=== PATIENT | female | born 1960 | race Caucasian/White ===

== ENCOUNTER → 2017-01-09 | Outpatient (CLI) | payer BC ==
--- NOTE | 2017-01-09 17:14 | US ---
EXAMINATION TYPE: US transvaginal DATE OF EXAM: 01/09/2017 COMPARISON: NONE CLINICAL HISTORY: N93.9 Abnormal Vaginal Bleeding. TECHNIQUE: Transvaginal (TV) Date of LMP: 15 months ago EXAM MEASUREMENTS: Uterus: 9.3 x 4.0 x 5.4 cm Endometrial Stripe: 1.7 cm Right Ovary: 2.9 x 2.9 x 3.0 cm Left Ovary: not visualized 1. Uterus: retroflexed 2. Endometrium: thickened 3. Right Ovary: 2.1 x 1.7 x 2.3 cm cyst 4. Left Ovary: Obscured by overlying bowel gas 5. Bilateral Adnexa: wnl 6. Posterior cul-de-sac: no free fluid right ovarian cyst as described above, thickened, heterogeneous endometrium IMPRESSION: 1. Right ovarian cyst. Follow-up 6 weeks is recommended.
== END | disposition home or self-care (01) ==
LOC: RADUSMAIN 16:26
PROVIDERS: ATTEND Family Medicine
DX: N83.201 Unspecified ovarian cyst, right side (principal)
CPT/HCPCS: 76830

== ENCOUNTER 2017-01-14 15:55 | Emergency (ER) | payer BC ==
[2017-01-14] MEDS ORDERED: IBUPROFEN 600 MG TAB PO STA (16:36)
--- NOTE | 2017-01-14 16:38 | ED ---
Lower Extremity Injury HPI - General Chief Complaint: Extremity Injury, Lower Stated Complaint: rt leg injury Time Seen by Provider: 01/14/17 16:23 Source: patient, RN notes reviewed Mode of arrival: ambulatory Limitations: no limitations - History of Present Illness Initial Comments: 56 year old female presents emergency Department for right ankle injury. Patient states that she was put in a wheelchair up the wheelchair landing on the vehicle and states that her foot and ankle were caught. No complaints of pain and swelling along the lateral and medial malleolus. Patient denies any. Fractures. Patient states it hurts to ambulate. Patient states she has not put any ice on it or has not taken any medication for this. Patient denies any paresthesias. - Related Data Home Medications Medication Instructions Recorded Confirmed ALPRAZolam [Xanax] 1 mg PO TID PRN 03/24/14 01/14/17 Butalb/Acetaminophen/Caffeine 1 cap PO DAILY PRN 01/20/16 01/14/17 [Fioricet 50-300-40 mg Capsule] PARoxetine [Paxil] 20 mg PO DAILY 01/20/16 01/14/17 Topiramate [Topamax] 50 mg PO BID 01/14/17 01/14/17 Previous Rx's Medication Instructions Recorded Hydrocodone/Acetaminophen [[place] 1 tab PO Q6HR PRN #15 tab 01/14/17 5-325] Allergies Allergy/AdvReac Type Severity Reaction Status Date / Time No Known Allergies Allergy Verified 01/14/17 16:40 Review of Systems ROS Statement: Those systems with pertinent positive or pertinent negative responses have been documented in the HPI. ROS Other: All systems not noted in ROS Statement are negative. Past Medical History Past Medical History: No Reported History Additional Past Medical History / Comment(s): anxiety History of Any Multi-Drug Resistant Organisms: MRSA Date of last positivie culture/infection: 2011 MDRO Source:: right axilla, neck Past Surgical History: Section Past Psychological History: Anxiety Smoking Status: Current every day smoker Past Alcohol Use History: Rare Past Drug Use History: None Reported General Exam Limitations: no limitations General appearance: alert, in no apparent distress Head exam: Present: atraumatic, normocephalic, normal inspection Respiratory exam: Present: normal lung sounds bilaterally. Absent: respiratory distress, wheezes, rales, rhonchi, stridor Cardiovascular Exam: Present: regular rate, normal rhythm, normal heart sounds. Absent: systolic murmur, diastolic murmur, rubs, gallop, clicks Extremities exam: Present: other (Right ankle there is moderate swelling on the lateral and medial malleolus with mild tenderness no obvious deformity there is no foot tenderness no proximal tib-fib tenderness pedal pulses are equal bilaterally) Course Vital Signs 01/14/17 16:01 Temperature 97.5 F L Pulse Rate 66 Respiratory 15 Rate Blood Pressure 125/58 O2 Sat by Pulse 99 Oximetry Medical Decision Making - Medical Decision Making 56-year-old female presented for right ankle injury. There is no acute fracture per radiology reading on x-ray. Patient will be discharge rest ice elevating Niraj wrap at this time. Disposition Clinical Impression: Right ankle sprain Disposition: HOME SELF-CARE Condition: Stable Instructions: Ankle Sprain (ED) Additional Instructions: Please return to the Emergency Department if symptoms worsen or any other concerns. Prescriptions: Hydrocodone/Acetaminophen [[place] 5-325] 1 tab PO Q6HR PRN #15 tab PRN Reason: Pain Referrals: Chavo Fofana MD [Primary Care Provider] - 1-2 days Time of Disposition: 17:28
--- NOTE | 2017-01-14 17:19 | XR ---
EXAMINATION TYPE: XR ankle complete RT DATE OF EXAM: 01/14/2017 COMPARISON: NONE HISTORY: Ankle pain TECHNIQUE: 3 views FINDINGS: Ankle mortise is anatomic. I see no fracture nor dislocation. Joint spaces are normal. IMPRESSION: Negative right ankle exam
[2017-01-14] MEDS ORDERED: HYDROcodone/APAP 5-325MG 1 EACH TAB PO STA (17:27)
[2017-01-14 17:41] VITALS: BP 114/57; PULSE 60; RESP 18; TEMP 96.9
== END 2017-01-14 17:43 | disposition home or self-care (01) ==
LOC: EC 15:55
DX: S93.401A Sprain of unspecified ligament of right ankle, initial encounter (principal); F41.9 Anxiety disorder, unspecified; F17.200 Nicotine dependence, unspecified, uncomplicated; Z79.899 Other long term (current) drug therapy; W23.0XXA Caught, crushed, jammed, or pinched between moving objects, initial encounter
CPT/HCPCS: 99283

== ENCOUNTER 2017-05-22 19:12 | Emergency (ER) | payer BC ==
[2017-05-22 20:06] VITALS: BP 134/60; PULSE 71; RESP 18; TEMP 98.2
--- NOTE | 2017-05-22 20:32 | ED ---
ENT HPI - General Chief complaint: Dental/Oral Stated complaint: tooth abscess Time Seen by Provider: 05/22/17 20:08 Source: patient Mode of arrival: ambulatory Limitations: no limitations - History of Present Illness Initial comments: 56-year-old female patient presented to emergency department today for complaints of right lower dental pain and facial swelling. Patient states that she does have a broken tooth in the right lower side. States she's been having pain for the last week. States that she developed worsening pain on Saturday and did present to [facility] for evaluation. States that she was given pain medication as well as antibiotics there and discharged home. She states that she did call and make an appointment with the dentist but they wanted to complete antibiotics prior to this. She states that yesterday the pain seemed to be worsening and not improved so she did return to the emergency department there, she states that they told her she needs to continue taking her medications and to follow-up with a dentist. She comes in tonight because she developed swelling to the side of her face today. She states that the pain is not improving. She is concerned she might be getting worse. She denies any fever or chills. States that she just feels generally unwell. States that she doesn't think her antibiotic is strong enough. Patient denies any recent fever, chills, shortness breath, chest pain, abdominal pain, nausea, vomiting, diarrhea , constipation, back pain, numbness, tingling, headache, visual changes, hematuria, dysuria, urinary frequency, urinary urgency, or any other complaints. - Related Data Home Medications Medication Instructions Recorded Confirmed ALPRAZolam [Xanax] 1 mg PO TID PRN 03/24/14 05/22/17 PARoxetine [Paxil] 20 mg PO DAILY 01/20/16 05/22/17 Topiramate [Topamax] 50 mg PO QAM 01/14/17 05/22/17 HYDROcodone/APAP 7.5-325MG [[place] 1 tab PO Q6HR PRN 05/22/17 05/22/17 7.5-325] Ibuprofen [Motrin] 600 mg PO Q6HR PRN 05/22/17 05/22/17 Penicillin V Potassium [Pen Vee K] 500 mg PO QID 05/22/17 05/22/17 Previous Rx's Medication Instructions Recorded Clindamycin [Cleocin] 300 mg PO Q6H #80 capsule 05/22/17 Allergies Allergy/AdvReac Type Severity Reaction Status Date / Time No Known Allergies Allergy Verified 05/22/17 20:06 Review of Systems ROS Statement: Those systems with pertinent positive or pertinent negative responses have been documented in the HPI. ROS Other: All systems not noted in ROS Statement are negative. Past Medical History Past Medical History: No Reported History Additional Past Medical History / Comment(s): anxiety History of Any Multi-Drug Resistant Organisms: MRSA Date of last positivie culture/infection: 2011 MDRO Source:: right axilla, neck Past Surgical History: Section Past Psychological History: Anxiety Smoking Status: Current every day smoker Past Alcohol Use History: Rare Past Drug Use History: None Reported General Exam Limitations: no limitations General appearance: alert, in no apparent distress, other (Physical developed, well nourished adult female patient in no acute distress. Vital signs upon presentation her temperature 98.2F, pulse 71, respirations 18, blood pressure 134/60, pulse ox 99% on room air.) Eye exam: Present: normal appearance, PERRL, EOMI. Absent: scleral icterus, conjunctival injection, periorbital swelling ENT exam: Present: normal exam, mucous membranes moist, other (Patient has right -sided facial swelling over the right lower jaw. There is a broken tooth to the right lower dentition. There is surrounding gingival erythema, no area of drainable abscess. She is able to open and close her mouth.) Neck exam: Present: normal inspection. Absent: tenderness, meningismus, lymphadenopathy Respiratory exam: Present: normal lung sounds bilaterally. Absent: respiratory distress, wheezes, rales, rhonchi, stridor Cardiovascular Exam: Present: regular rate, normal rhythm, normal heart sounds. Absent: systolic murmur, diastolic murmur, rubs, gallop, clicks Neurological exam: Present: alert, oriented X3, CN II-XII intact Psychiatric exam: Present: normal affect, normal mood Skin exam: Present: warm, dry, intact, normal color. Absent: rash Course Vital Signs 05/22/17 20:01 Temperature 98.2 F Pulse Rate 71 Respiratory 18 Rate Blood Pressure 134/60 O2 Sat by Pulse 99 Oximetry Medical Decision Making - Medical Decision Making 56 old female patient presented for evaluation of right lower dental pain with facial swelling. Patient is concerned that her antibiotic is not strong enough. She has been taking penicillin for the last 2 days. States that the swelling is new today. There are no palpable cervical lymph nodes. Patient is afebrile, vital signs are stable. I change her antibiotic from penicillin to clindamycin. I did instruct her to finish the antibiotics in full and to follow -up with a dentist as soon as possible. I instructed her to apply warm compresses to the outside of the face. Return parameters discussed in detail. I instructed her to return here immediately for any new, worsening, or concerning symptoms. She verbalizes understanding and agreement with this plan. Disposition Clinical Impression: Dental abscess, Fractured tooth Disposition: HOME SELF-CARE Condition: Good Instructions: Dental Abscess (ED), Toothache (ED) Additional Instructions: Apply warm compresses to the outside of the face. Complete antibiotic prescription in full. Follow up with a dentist as soon as possible. Return here immediately for any new, worsening, or concerning symptoms. Prescriptions: Clindamycin [Cleocin] 300 mg PO Q6H #80 capsule Referrals: Chavo Fofana MD [Primary Care Provider] - 1-2 days Time of Disposition: 20:32
== END 2017-05-22 20:43 | disposition home or self-care (01) ==
LOC: EC 19:12
DX: S02.5XXA Fracture of tooth (traumatic), initial encounter for closed fracture (principal); K04.7 Periapical abscess without sinus; F41.9 Anxiety disorder, unspecified; F17.200 Nicotine dependence, unspecified, uncomplicated; Z79.899 Other long term (current) drug therapy; X58.XXXA Exposure to other specified factors, initial encounter
CPT/HCPCS: 99282

== ENCOUNTER → 2017-06-24 | Outpatient (CLI) | payer BC ==
--- NOTE | 2017-06-24 18:39 | US ---
EXAMINATION TYPE: US transvaginal DATE OF EXAM: 06/24/2017 COMPARISON: 01/09/2017 CLINICAL HISTORY: N65.0 Post Menopausal Bleeding. TECHNIQUE: Transvaginal (TV) Date of LMP: 01/2017 EXAM MEASUREMENTS: Uterus: 6.0 x 3.6 x 3.8 cm Endometrial Stripe: 0.57 cm Right Ovary: 2.1 x 1.4 x 1.8 cm Left Ovary: 2.4 x 1.3 x 1.7 cm 1. Uterus: Retroverted Heterogenous 2. Endometrium: visualized portion appears wnl 3. Right Ovary: wnl 4. Left Ovary: wnl 5. Bilateral Adnexa: wnl 6. Posterior cul-de-sac: wnl Exam limitations due to bowel gas and uterus position IMPRESSION: No adnexal mass or free fluid. No endometrial thickening seen. Endometrium is decreased i n thickness compared to last exam.
== END | disposition home or self-care (01) ==
LOC: RADUSMAIN 17:15
PROVIDERS: ATTEND Family Medicine
DX: R93.8 Abnormal findings on diagnostic imaging of other specified body structures (principal)
CPT/HCPCS: 76830

== ENCOUNTER → 2018-10-13 | Outpatient (CLI) | payer BC ==
--- NOTE | 2018-10-13 10:38 | US ---
EXAMINATION TYPE: US pelvic complete DATE OF EXAM: 10/13/2018 COMPARISON: 06/24/2017 CLINICAL HISTORY: Pelvic Pain R10.2. Pain- generalized cramping, hx TECHNIQUE: Transabdominal (TA). Transabdominal sonographic images of the pelvis were acquired Date of LMP: Postmenopausal, EXAM MEASUREMENTS: Uterus: 10.3 x 4.1 x 3.3 cm Endometrial Stripe: 0.5 cm Right Ovary: 2.1 x 1.6 x 1.1 cm Left Ovary: 2.7 x 1.7 x 1.3 cm 1. Uterus: Anteverted there is an elongated focal lobulation at the presumed area of sca r continuous with the soft tissues and extending to the anterior uterine fundus. 2. Endometrium: wnl 3. Right Ovary: wnl 4. Left Ovary: wnl 5. Bilateral Adnexa: wnl 6. Posterior cul-de-sac: no free fluid Cervix- nabothian cysts IMPRESSION: Elongated area of hypoechogenicity presumed to be at the anterior scar. This appears slight ly lobular on few marked images (such as 20/41). This appears much more pronounced than on the prior exam of 2017. If there is concern for endometrioma or desmoid tumor MR pelvis with contrast could be performed.
== END | disposition home or self-care (01) ==
LOC: RADUSWWP 09:44
PROVIDERS: ATTEND Obstetrics & Gynecology
DX: N85.8 Other specified noninflammatory disorders of uterus (principal)
CPT/HCPCS: 76856

== ENCOUNTER → 2018-10-15 | Outpatient (CLI) | payer BC ==
[2018-10-15 19:00] LABS: Basophils # (A) 0.1 k/uL (0-0.2); Basophils % (A) 1 %; Eosinophils # (A) 0.1 k/uL (0-0.7); Eosinophils % (A) 2 %; HCT 44.3 % (34.0-46.0); HGB 15.2 gm/dL (11.4-16.0); Lymphocytes # (A) 2.4 k/uL (1.0-4.8); Lymphocytes % (A) 36 %; MCH 31.4 pg (25.0-35.0); MCHC 34.4 g/dL (31.0-37.0); MCV 91.4 fL (80.0-100.0); Mean Platelet Volume 6.8; Monocytes # (A) 0.4 k/uL (0-1.0); Monocytes % (A) 5 %; Neutrophils # (A) 3.6 k/uL (1.3-7.7); Neutrophils % (A) 55 %; Platelet Count 243 k/uL (150-450); RBC 4.85 m/uL (3.80-5.40); RDW 12.9 % (11.5-15.5); WBC 6.6 k/uL (3.8-10.6)
== END | disposition home or self-care (01) ==
LOC: LABPAT 17:05
PROVIDERS: ATTEND Obstetrics & Gynecology
DX: Z01.818 Encounter for other preprocedural examination (principal); Z01.812 Encounter for preprocedural laboratory examination; E21.1 Secondary hyperparathyroidism, not elsewhere classified; D50.9 Iron deficiency anemia, unspecified; K90.9 Intestinal malabsorption, unspecified; E55.9 Vitamin D deficiency, unspecified; K74.1 Hepatic sclerosis; N19 Unspecified kidney failure; K50.90 Crohn's disease, unspecified, without complications
CPT/HCPCS: 85025; 93005

== ENCOUNTER 2018-10-20 08:20 | Day surgery (SDC) | payer BC ==
[2018-10-16 14:47] VITALS: BMI 25.4
[~2018-10-20 08:20] MED LIST: DEXAMETHASONE SOD PHOSPHATE 10 MG/ML 1 ML VIAL IV ONE; HYDROmorphone 0.5 MG/0.5 ML SYRINGE IVP PRN; LACTATED RINGERS 1,000 ML IV SCH; LIDOCAINE 1% 20 ML VIAL (10MG/ML) FOR IV START INTRADERMA PRN; SCOPOLAMINE 1.5MG/72HR PATCH TRANSDERM ONE; ceFAZolin IN SWFI 2 GM/20 ML SYRINGE IVP ONE
[2018-10-20] MEDS: ONDANSETRON 4 MG/2 ML VIAL IVP ONE ×2 (09:02→12:24)
[2018-10-20] MEDS ORDERED: GLYCOPYRROLATE 0.2 MG/ML 2 ML VIAL ONE (10:30)
[2018-10-20] MEDS ORDERED: fentaNYL (PF) 50 MCG/ML 2 ML AMP ONE (10:30)
[2018-10-20] MEDS ORDERED: PROPOFOL 10 MG/ML 20 ML VIAL IV ONE (10:30)
[2018-10-20] MEDS ORDERED: SUCCINYLCHOLINE CHLORIDE 100 MG/5 ML SYR IV ONE (10:30)
[2018-10-20] MEDS ORDERED: ROCURONIUM BROMIDE 10 MG/ML 10 ML VIAL IV ONE (10:30)
[2018-10-20] MEDS ORDERED: NEOSTIGMINE 1 MG/ML 10 ML VIAL ONE (10:30)
[2018-10-20] MEDS ORDERED: MIDAZOLAM 2 MG/2 ML VIAL ONE (10:30)
[2018-10-20] MEDS ORDERED: BUPIVACAINE (PF) 0.25% 30 ML VIAL SQ ONE (10:59)
[2018-10-20] MEDS ORDERED: METHYLENE BLUE 10 MG/ML (10 ML VIAL) MISCELLANE ONE (11:35)
[2018-10-20] MEDS ORDERED: LACTATED RINGERS 1,000 ML IV ONE ×3 (12:10→12:24)
--- NOTE | 2018-10-20 12:16 | P.OP ---
Date of Procedure: 10/20/18 Preoperative Diagnosis: Pelvic pain Postoperative Diagnosis: Pelvic pain, abdominal and pelvic adhesions Procedure(s) Performed: Diagnostic laparoscopy with lysis of pelvic adhesions Anesthesia: MOO Surgeon: Jewels Lawler Estimated Blood Loss (ml): 2 IV fluids (ml): 800 Urine output (ml): 150 Pathology: none sent Disposition: PACU Indications for Procedure: Acute onset of pelvic pain Operative Findings: Dense adhesions involving the anterior abdominal wall and anterior fundus of the uterus. Abdominal wall diastases. Normal-appearing bilateral fallopian tubes and ovaries. Description of Procedure: After the patient and her family were met in the preoperative holding area and all questions were answered, she was taken to the operating room where anesthetic was administered without incident. She was in positioned, prepped and draped in the dorsal lithotomy position. The bladder was drained for approximately 100 mL of clear urine. Speculum was placed in the vagina and the cervix was grasped anteriorly with a single-tooth tenaculum. [place] uterine manipulator was placed. Exam under anesthetic was undertaken prior to this and uterus felt firm and mobile. Attention was then turned to the abdomen. Gloves were changed. A 5 mm supraumbilical skin incision was made. The anterior abdominal wall was elevated and the Veress needle was inserted without difficulty. Saline drop test indicated intraperitoneal placement. Initial filling pressure with CO2 gas was 0 mm. The abdomen was then insufflated to a total filling pressure of 15 mm. Under direct visualization the 5 mm diagnostic scope was introduced using the blade less optical trocar. Intraperitoneal placement was confirmed. The patient was then placed in Trendelenburg. The above findings were noted. Decision was made to undergo lysis of adhesions. The robot was utilized. Under direct visualization 8 mm left and right abdominal quadrant ports were placed. The infraumbilical camera port was switched to 8 mm da Shyanne port and operative cannula. The robot was docked in the typical fashion. Monopolar randal were in arm 1 and bipolar cautery [place] graspers were in arm 2. The bladder was retrograde filled with 300 mL's of methylene dyed urine. Adhesions were fairly dense 1-2 cm thick involving the anterior fundus of the uterus to the anterior abdominal wall. Significant diastases was noted.. Meticulous dissection was then undertaken both sharply and with the electrocautery to separate the fundus of the uterus on the from these adhesions. At no point did it appear that the bladder was in ope rative field. Once dissection was undertaken and the uterus was freed from these adhesions the bladder flap was more easily visualized. There was no evidence of methylene blue in the field. At this point the bilateral fallopian tubes and ovaries were more easily visualized. Hemostasis was noted. Interceed was then introduced and placed over the anterior fundus of the uterus as an adhesion barrier. The abdomen was then desufflated and ports were removed. The bladder was drained for 300 mL of methylene dyed blue urine. Instrument was removed from the vagina. The abdominal ports were closed with 4-0 Vicryl suture and infused with quarter percent Marcaine. Dressings applied. The patient was awoken from anesthetic in the usual fashion and transported recovery area in good condition. All counts reported to me as correct by the operating room staff.
[2018-10-20 12:30] VITALS: TEMP 97.5
[2018-10-20] MEDS ORDERED: diphenhydrAMINE 50 MG/ML 1 ML VIAL IVP ONE (12:37)
[2018-10-20 12:39] VITALS: RESP 16
[2018-10-20 13:50] VITALS: BP 112/60; PULSE 61
== END 2018-10-20 15:01 | disposition home or self-care (01) ==
LOC: OR 08:20
PROVIDERS: ATTEND Obstetrics & Gynecology
DX: N73.6 Female pelvic peritoneal adhesions (postinfective) (principal); I10 Essential (primary) hypertension; F17.210 Nicotine dependence, cigarettes, uncomplicated; F41.9 Anxiety disorder, unspecified; F32.9 Major depressive disorder, single episode, unspecified; R01.1 Cardiac murmur, unspecified; Z79.899 Other long term (current) drug therapy
CPT/HCPCS: 58660; J2250; J1200; J1100; J2710; J2405; Q9968; J3010; J0330; J2704; J1170; J0690

== ENCOUNTER → 2018-11-19 | Outpatient (CLI) | payer BC ==
--- NOTE | 2018-11-19 14:34 | CT ---
EXAMINATION TYPE: CT abdomen pelvis w con DATE OF EXAM: 11/19/2018 HISTORY: Small bowel obstruction; RLQ pain CT DLP: 1068mGycm Automated Exposure Control for Dose Reduction was Utilized. CONTRAST: CT scan of the abdomen and pelvis is performed with IV Contrast, patient injected with 100 ml mL of I sovue 300. COMPARISON: None. FINDINGS: LUNG BASES: Small to tiny pericardial effusion is seen. LIVER/GB: No significant abnormality is appreciated. PANCREAS: No significant abnormality is seen. SPLEEN: No significant abnormality is seen. ADRENALS: No significant abnormality is seen. KIDNEYS: Symmetric cortical medullary uptake and excretion without hydronephrosis bilaterally. BOWEL: Oral contrast reaches sigmoid colon. No suspicious small or large bowel dilatation. Mild promi nence of small bowel loops in the left upper to midabdomen, nonspecific. Stomach is not suspiciously dilated or prominent. Normal contrast-filled appendix from cecum into the right pelvis is noted. UTERUS/ADNEXA: Anteverted uterus. LYMPH NODES: No greater than 1cm abdominal or pelvic lymph nodes are appreciated. OSSEOUS STRUCTURES: Facet arthropathy lower lumbar spine slight grade 1 retrolisthesis L2 on L3 with mild to moderate disc space narrowing and anterior spurring. Moderate axial joint space loss in both hips. OTHER: Tiny fat-containing umbilical hernia is present axial image 45. Mild/moderate calcified plaque of aorta extends into branch vessels. IMPRESSION: No bowel obstruction. No CT evidence of acute appendicitis.
== END ==
LOC: RADCTMAIN 07:55
PROVIDERS: ATTEND Surgery Plastic and Reconstructive Surgery
DX: K56.609 Unspecified intestinal obstruction, unspecified as to partial versus complete obstruction (principal)
CPT/HCPCS: 74177; Q9967

== ENCOUNTER 2018-12-04 07:36 | Day surgery (SDC) | payer BC ==
[2018-12-03 10:09] VITALS: BMI 25.1
--- NOTE | 2018-12-03 18:35 | P.GSHP ---
History of Present Illness H&P Date: 12/04/18 CHIEF COMPLAINT: Inguinal hernia, right. HISTORY OF PRESENT ILLNESS: The patient is a 58-year-old female who presents with a history of swelling and pain along the right groin. She's noted increased swelling including pain of the area. Now she presents for repair of her inguinal hernia. PAST MEDICAL HISTORY: Please see list. PAST SURGICAL HISTORY: Please see list. MEDICATIONS: Please see list. ALLERGIES: Please see list. SOCIAL HISTORY: No illicit drug use FAMILY HISTORY: No reports of Crohn disease or ulcerative colitis. REVIEW OF ORGAN SYSTEMS: CONSTITUTIONAL: No reports of fevers or chills. No reports of weight loss despite prior attempts. GI: Denies any blood in stools or constipation. PHYSICAL EXAM: VITAL SIGNS: Stable GENERAL: Well-developed pleasant female in no acute distress. HEENT: No scleral icterus. Extraocular movements grossly intact. Moist buccal mucosa. NECK: Supple without lymphadenopathy. CHEST: Unlabored respirations. Equal bilateral excursions. CARDIOVASCULAR: Regular rate and rhythm. Distal 2+ pulses. ABDOMEN: Soft, nondistended. No peritoneal signs. Moderate tenderness right lower quadrant MUSCULOSKELETAL: No clubbing, cyanosis, or edema. ASSESSMENT: 1. Inguinal hernia, right initial and symptomatic. PLAN: 1. Recommend proceeding robotic inguinal repair with mesh with possible bilateral approach. 2. Benefits and risks of surgical intervention was discussed including possibility of open technique. 3. DVT prophylaxis. 4. Antibiotic prophylaxis. Past Medical History Past Medical History: Pneumonia Additional Past Medical History / Comment(s): migraine headaches, right lower abd. pain, states has never had hypertension, recent flu & pneumonia 3 weeks ago-now resolved History of Any Multi-Drug Resistant Organisms: MRSA Date of last positivie culture/infection: 2011 MDRO Source:: right axilla, neck Past Surgical History: Section Additional Past Surgical History / Comment(s): laparoscopy w/lysis of adhesions 10-20-18 Past Anesthesia/Blood Transfusion Reactions: No Reported Reaction Additional Past Anesthesia/Blood Transfusion Reaction / Comment(s): NO GENERAL ANESTHESIA Smoking Status: Current every day smoker - Past Family History Father Family Medical History: Cancer Additional Family Medical History / Comment(s): LUNG AND LIVER Medications and Allergies Home Medications Medication Instructions Recorded Confirmed Type ALPRAZolam [Xanax] 1 mg PO TID PRN 03/24/14 12/03/18 History Butalb/Acetaminophen/Caffeine 1 - 2 cap PO Q4HR PRN 10/16/18 12/03/18 History [Fioricet 50-300-40 mg Capsule] PARoxetine HCL [Paxil] 40 mg PO DAILY 10/16/18 12/03/18 History buPROPion XL [Wellbutrin Xl] 150 mg PO DAILY 10/16/18 12/03/18 History Ibuprofen [Motrin] 600 mg PO Q6HR PRN #30 tab 10/20/18 12/03/18 Rx busPIRone HCl [Buspar] 10 mg PO DAILY 10/20/18 12/03/18 History Allergies Allergy/AdvReac Type Severity Reaction Status Date / Time No Known Allergies Allergy Verified 12/03/18 10:15
[~2018-12-04 07:36] MED LIST changes: +HEPARIN SODIUM,PORCINE 5,000 UNIT/ML 1 ML VIAL SQ ONE; -HYDROmorphone 0.5 MG/0.5 ML SYRINGE IVP PRN; +MIDAZOLAM (PF) 2 MG/2 ML VIAL IV PRN
[2018-12-04] MEDS: ONDANSETRON 4 MG/2 ML VIAL IVP ONE ×2 (08:00→10:13)
[2018-12-04] MEDS ORDERED: BUPIVACAINE (PF) 0.5% 30 ML VIAL ONE (08:17)
[2018-12-04] MEDS ORDERED: fentaNYL (PF) 50 MCG/ML 2 ML AMP ONE (08:17)
[2018-12-04] MEDS ORDERED: ROPIVACAINE 5 MG/ML 30 ML VIAL ONE (08:17)
[2018-12-04] MEDS ORDERED: KETOROLAC 30 MG/ML 1 ML VIAL ONE (08:17)
[2018-12-04] MEDS ORDERED: ROCURONIUM BROMIDE 10 MG/ML 10 ML VIAL IV ONE (08:17)
[2018-12-04] MEDS ORDERED: LIDOCAINE 2%-EPI 1:100,000 20 ML VIAL ONE (08:17)
[2018-12-04] MEDS ORDERED: MIDAZOLAM 2 MG/2 ML VIAL ONE (08:17)
[2018-12-04] MEDS ORDERED: DEXAMETHASONE SOD PHOSPHATE 4 MG/ML 1 ML VIAL ONE (08:17)
[2018-12-04] MEDS ORDERED: NEOSTIGMINE 1 MG/ML 10 ML VIAL ONE (08:17)
[2018-12-04] MEDS ORDERED: SUCCINYLCHOLINE CHLORIDE 100 MG/5 ML SYR IV ONE (08:17)
[2018-12-04] MEDS ORDERED: PROPOFOL 10 MG/ML 20 ML VIAL IV ONE (08:17)
[2018-12-04] MEDS ORDERED: GLYCOPYRROLATE 0.2 MG/ML 2 ML VIAL ONE (08:17)
[2018-12-04] MEDS ORDERED: LIDOCAINE 1% INJ 10MG/ML (20 ML MDV) ONE (08:17)
[2018-12-04 08:23] LABS: Basophils # (A) 0.1 k/uL (0-0.2); Basophils % (A) 1 %; Eosinophils # (A) 0.1 k/uL (0-0.7); Eosinophils % (A) 3 %; HCT 41.8 % (34.0-46.0); HGB 14.4 gm/dL (11.4-16.0); Lymphocytes % (A) 24 %; MCH 31.3 pg (25.0-35.0); MCHC 34.5 g/dL (31.0-37.0); MCV 90.8 fL (80.0-100.0); Mean Platelet Volume 6.5; Monocytes # (A) 0.3 k/uL (0-1.0); Monocytes % (A) 6 %; Neutrophils # (A) 2.6 k/uL (1.3-7.7); Neutrophils % (A) 64 %; Platelet Count 267 k/uL (150-450); RDW 13.3 % (11.5-15.5)
[2018-12-04] MEDS ORDERED: BUPIVACAINE (PF) 0.5% 30 ML VIAL SQ ONE ×2 (08:43→08:46)
[2018-12-04 10:05] VITALS: TEMP 97.3
--- NOTE | 2018-12-04 10:22 | P.OP ---
Date of Procedure: 12/04/18 Description of Procedure: SURGEON: ILANA JIANG MD PREOPERATIVE DIAGNOSES: 1. Bilateral lower abdominal pain, right greater than left 2. History of peritoneal adhesions 3. Generalized anxiety disorder 4. Depressive disorder 5. Migraine headaches 6. Tobacco use 7. Previous history of MRSA infection 8. Previous history of POSTOPERATIVE DIAGNOSES: 1. Bilateral lower abdominal pain, right greater than left 2. History of peritoneal adhesions 3. Generalized anxiety disorder 4. Depressive disorder 5. Migraine headaches 6. Tobacco use 7. Previous history of MRSA infection 8. Previous history of 9. Severe lower abdominal adhesions 10. Incisional hernia, initial, right lower abdomen OPERATION: 1. Robotic-assisted daVinci Xi laparoscopic repair of initial reducible incisional ventral hernia 5 x 5 cm with fascial imbrication without mesh 2. Robotic-assisted daVinci Xi laparoscopic lysis of adhesions over 30 minutes ANESTHESIA: General with local, abdominal wall block ESTIMATED BLOOD LOSS: 10 mL. SPECIMENS: None. COMPLICATIONS: None. Operative Findings: 1. Severe omentum to abdominal wall adhesions lower pelvis consistent with location of pain 2. Uterus adherent to the dome of bladder from previous and undisturbed 3. Abdominal wall defect right lower abdomen from prior consistent with incisional hernia repaired 4. Mesh placement avoided secondary to history of peritoneal adhesions including MRSA and chronic pain from adhesions INDICATIONS: The patient is a 58-year-old female who presents with moderate to severe bilateral lower abdominal pain right greater than left. She reports recent surgical exploration however her pain was still present and grew worse. Additional diagnosis studies were performed with evidence of possible hernia. Surgical intervention with laparoscopic versus robotic and open techniques were reviewed. Placement of mesh was also reviewed. Benefits and risks were thoroughly described. Informed consent was obtained. DESCRIPTION OF PROCEDURE: In the preoperative area, location of pain was marked with indelible marker. The patient was brought into the operating room and laid in supine position. After general induction, the abdomen had been prepped and draped in standard sterile fashion. Ioban draping was also placed. Prior to incision, a timeout protocol was confirmed with surgical team regarding the patient's name including procedures to be performed. The robot was primed prior to the procedure. A field block using local anesthesia was placed along hernia site including the proposed port sites. Initial incision was made with an #11 blade along the left upper quadrant. A 0 degree 5 mm laparoscopic trocar entry was performed. Diagnostic laparoscopy demonstrated severe peritoneal adhesions along the pelvis and lower midline consistent with her for pain as previously marked. Adhesions were from the greater omentum to the abdominal wall without involvement of the small bowel. No evidence of bowel obstruction identified. A 8 mm trocar was placed along the epigastrium and right upper quadrant. The 5-mm port was exchanged for an 8 mm robotic port. Placements of the ports were 20 cm from the target anatomy and 10 cm apart. The da Shyanne XI robot was previously primed, prepped and draped then docked along the left side of the patient. I then sat at the robot Da Shyanne XI console where working arms of the robot including Bovie cautery connected to robotic scissors, vessel sealer and graspers placed by the insurance assistant. Adhesions along the lower midline and pelvis were addressed with scissors and vessel sealer over 30 minutes. upon careful inspection of both groins, no inguinal hernia defects were found. The anterior surface of the uterus was completely adhered to the dome and bladder wall and undisturbed. Formal exploration of the pouch of [place] including fallopian tubes and ovaries were performed without evidence of endometriosis. No large ovarian cysts were identified bilaterally. The fallopian tubes were unremarkable as well. No evidence of exophytic fibroids were found. A Farah catheter was placed to confirm positioning of the bladder which was adhered to the uterus. The hernia along the right lower quadrant from previous was explored consistent with a pocket highly suspicious for intermittent bowel obstruction. Next, hemostasis was checked with cautery. The hernia defect was oversewn using #1 StrataFix with fascial imbrication 3. Mesh placement was avoided given the severe peritoneal adhesions and foreign body reaction to the mesh. A final endoscopic imaging was obtained. All instruments and pneumoperitoneum were evacuated from the abdominal cavity. The da Shyanne XI robot was undocked from the patient. I re-scrubbed into the case for closure of incisions. The incisions were reapproximated using 4-0 Monocryl in an interrupted subcuticular fashion. Liquid glue was applied to the skin. At the end of the procedure, needle, sponge, and instrument count had been verified correct by neurosurgical nurse practitioner. The patient was taken to the postanesthesia care unit in stable condition with abdominal binder. Plan - Discharge Summary Discharge Rx Participant: Yes New Discharge Prescriptions: New HYDROcodone/APAP 5-325MG [[place] 5-325] 1 tab PO Q6HR PRN 3 Days #10 tab PRN Reason: Pain No Action ALPRAZolam [Xanax] 1 mg PO TID PRN PRN Reason: Anxiety buPROPion XL [Wellbutrin Xl] 150 mg PO DAILY PARoxetine HCL [Paxil] 40 mg PO DAILY Butalb/Acetaminophen/Caffeine [Fioricet 50-300-40 mg Capsule] 1 - 2 cap PO Q4HR PRN PRN Reason: Migraine Headache busPIRone HCl [Buspar] 10 mg PO DAILY Ibuprofen [Motrin] 600 mg PO Q6HR PRN #30 tab PRN Reason: Pain Discharge Medication List ALPRAZolam [Xanax] 1 mg PO TID PRN 03/24/14 [History] Butalb/Acetaminophen/Caffeine [Fioricet 50-300-40 mg Capsule] 1 - 2 cap PO Q4HR PRN 10/16/18 [History] PARoxetine HCL [Paxil] 40 mg PO DAILY 10/16/18 [History] buPROPion XL [Wellbutrin Xl] 150 mg PO DAILY 10/16/18 [History] Ibuprofen [Motrin] 600 mg PO Q6HR PRN #30 tab 10/20/18 [Rx] busPIRone HCl [Buspar] 10 mg PO DAILY 10/20/18 [History] HYDROcodone/APAP 5-325MG [[place] 5-325] 1 tab PO Q6HR PRN 3 Days #10 tab 12/04/18 [Rx] Follow up Appointment(s)/Referral(s): Ilana Jiang MD [STAFF PHYSICIAN] - 12/09/18 Patient Instructions/Handouts: *Surgery [facility] - (Anesthesia) Discharge Instructions Outpatient Surgery, Hydrocodone/Acetaminophen (By mouth), Lysis of Abdominal Adhesions (DC), Abdominal Binder (DC), Ventral Hernia Repair (DC) Activity/Diet/Wound Care/Special Instructions: No lifting for 4 pounds in 4 weeks. May shower. No bathtub soaks for 2 weeks. Wear abdominal binder daily for comfort except for showering. DO NOT TAKE NORCO AND XANAX TOGETHER. DO NOT DRIVE WHILE ON NARCOTICS. Discharge Disposition: HOME SELF-CARE
[2018-12-04] MEDS: HYDROmorphone 0.5 MG/0.5 ML SYRINGE IVP PRN ×2 (10:26→10:33)
[2018-12-04 10:53] VITALS: RESP 18
--- NOTE | 2018-12-04 11:19 | P.ONQ ---
Anesthesiology Proc Note - PNB - Peripheral Nerve Block Performed Bilateral Transversus Abdominis Single Time Out Performed: Yes Indication: Acute Post-Operative Pain, Dx/Pain Location (abdominal pain), Requested by physician Sedation Type: Sedate with meaningful contact maintained Preparation: Sterile Prep Position: Supine Catheter: None Needle Types: On-Q Needle Size: 100mm (4") Needle Gauge: 21 Technique: Ultrasound Injectate: Other (see comment) (10ml 0.25% ropivacaine with 10ml 2% lidocaine with 1:200,000 epi and 4mg dexamethasone at each side) Blood Aspirated: No Pain Paresthesia on Injection Noted: No Resistance on Injection: Normal Events: Uneventful and Well Tolerated
[2018-12-04 11:25] VITALS: BP 145/80; PULSE 61
== END 2018-12-04 11:46 | disposition home or self-care (01) ==
LOC: OR 07:36
PROVIDERS: ATTEND Surgery Plastic and Reconstructive Surgery
DX: K43.2 Incisional hernia without obstruction or gangrene (principal); K66.0 Peritoneal adhesions (postprocedural) (postinfection); F41.1 Generalized anxiety disorder; F32.9 Major depressive disorder, single episode, unspecified; G43.909 Migraine, unspecified, not intractable, without status migrainosus; F17.210 Nicotine dependence, cigarettes, uncomplicated; Z86.14 Personal history of Methicillin resistant Staphylococcus aureus infection; Z80.1 Family history of malignant neoplasm of trachea, bronchus and lung; Z80.0 Family history of malignant neoplasm of digestive organs; Z79.899 Other long term (current) drug therapy
CPT/HCPCS: 49329; 49654; S2900; 64488; 85025

== ENCOUNTER 2019-01-25 13:49 | Emergency (ER) | payer BC ==
[2019-01-25] MEDS ORDERED: PANTOPRAZOLE 40 MG/10 ML VIAL IVP STA (14:26)
[2019-01-25] MEDS ORDERED: SODIUM CHLORIDE 0.9% 1,000 ML IV STA ×2 (14:26)
[2019-01-25] MEDS ORDERED: ONDANSETRON 4 MG/2 ML VIAL IVP STA (14:26)
[2019-01-25] MEDS ORDERED: MORPHINE SULFATE 4 MG/ML SYRINGE IV STA (14:26)
[2019-01-25] MEDS ORDERED: KETOROLAC 30 MG/ML 1 ML VIAL IVP STA (14:26)
--- NOTE | 2019-01-25 14:30 | ED ---
Nausea/Vomiting/Diarrhea HPI - General Chief complaint: Nausea/Vomiting/Diarrhea Stated complaint: Diarrhea Time Seen by Provider: 01/25/19 14:02 Source: patient, RN notes reviewed, old records reviewed Mode of arrival: ambulatory Limitations: no limitations - History of Present Illness Initial comments: Patient is a 50-year-old female who presents for shortness today with fever, and diarrhea for the past 3 days. Surgical history includes hernia repair, lysis of adhesions apparently 6 weeks ago. She reports that she's been having some chronic pelvic pain for the past few months, and had the hernia repair and lysis of adhesions to help repair the pain but still continues. Patient states that she had no bloody stools. She denies any vomiting. She states that she did have some episodes of dry heaves complains of nausea. Patient states that she had a fever 101 starting on Saturday. She denies any history of sick contacts or exposures to undercooked foods. - Related Data Home Medications Medication Instructions Recorded Confirmed ALPRAZolam [Xanax] 1 mg PO TID PRN 03/24/14 01/23/19 Butalb/Acetaminophen/Caffeine 1 - 2 cap PO Q4HR PRN 10/16/18 01/23/19 [Fioricet 50-300-40 mg Capsule] PARoxetine HCL [Paxil] 40 mg PO DAILY 10/16/18 01/23/19 buPROPion XL [Wellbutrin Xl] 150 mg PO DAILY 10/16/18 01/23/19 busPIRone HCl [Buspar] 10 mg PO DAILY 10/20/18 01/23/19 Previous Rx's Medication Instructions Recorded Loperamide [Imodium] 2 mg PO QID #15 capsule 01/25/19 Ondansetron [Zofran ODT] 4 mg PO Q8HR #8 tab 01/25/19 Allergies Allergy/AdvReac Type Severity Reaction Status Date / Time No Known Allergies Allergy Verified 01/23/19 15:07 Review of Systems ROS Statement: Those systems with pertinent positive or pertinent negative responses have been documented in the HPI. ROS Other: All systems not noted in ROS Statement are negative. Past Medical History Past Medical History: Pneumonia Additional Past Medical History / Comment(s): migraine headaches, hx. heart murmur History of Any Multi-Drug Resistant Organisms: MRSA Date of last positivie culture/infection: 2011 MDRO Source:: right axilla, neck Past Surgical History: Section Additional Past Surgical History / Comment(s): laparoscopy w/lysis of adhesions in October, had robotic ventral hernia repair & lysis of adhesions in November Past Anesthesia/Blood Transfusion Reactions: No Reported Reaction Additional Past Anesthesia/Blood Transfusion Reaction / Comment(s): NO GENERAL ANESTHESIA Past Psychological History: Anxiety Smoking Status: Current every day smoker Past Alcohol Use History: None Reported Past Drug Use History: None Reported - Past Family History Father Family Medical History: Cancer Additional Family Medical History / Comment(s): LUNG AND LIVER General Exam - General Exam Comments Initial Comments: This is an alert and oriented 58-year-old female. No significant distress. Limitations: no limitations General appearance: alert, in no apparent distress Head exam: Present: atraumatic, normocephalic, normal inspection Eye exam: Present: normal appearance, PERRL, EOMI. Absent: scleral icterus, conjunctival injection, periorbital swelling ENT exam: Present: normal exam, mucous membranes moist Neck exam: Present: normal inspection. Absent: tenderness, meningismus, lymphadenopathy Respiratory exam: Present: normal lung sounds bilaterally. Absent: respiratory distress, wheezes, rales, rhonchi, stridor Cardiovascular Exam: Present: regular rate, normal rhythm, normal heart sounds. Absent: systolic murmur, diastolic murmur, rubs, gallop, clicks GI/Abdominal exam: Present: soft, tenderness (RLQ tenderness), normal bowel sounds. Absent: distended, guarding, rebound, rigid Extremities exam: Present: normal inspection, full ROM, normal capillary refill. Absent: tenderness, pedal edema, joint swelling, calf tenderness Back exam: Present: normal inspection Neurological exam: Present: alert, oriented X3, CN II-XII intact Psychiatric exam: Present: normal affect, normal mood Course Vital Signs 01/25/19 01/25/19 13:54 15:25 Temperature 98.2 F Pulse Rate 70 66 Respiratory 18 18 Rate Blood Pressure 115/68 146/75 O2 Sat by Pulse 98 99 Oximetry Medical Decision Making - Medical Decision Making Patient is a 50-year-old female presents returns today with nausea, no OF diarrhea for the past 3 days. History of hernia repair [address] Evangelista. At this time Patient has some right lower quadrant tenderness. Patient states that she did have a fever earlier this week in the past few days. This time patient's blood work was reviewed and unremarkable. Patient's CT abdomen and pelvis was completed. The state for any acute process. No sign of appendicitis or diverticulitis. Patient really results. Discussed likely viral. Patient will be given a order for stool studies that she's not had a bowel movement while in emergency department. Discussed that she should return to the emergency department if any alarming signs or symptoms occur. - Lab Data Result diagrams: 01/25/19 14:44 01/25/19 14:44 Lab Results 01/25/19 01/25/19 01/25/19 Range/Units 14:44 14:44 14:44 WBC 3.2 L (3.8-10.6) k/uL RBC 4.69 (3.80-5.40) m/uL Hgb 14.5 (11.4-16.0) gm/dL Hct 41.5 (34.0-46.0) % MCV 88.5 (80.0-100.0) fL MCH 30.9 (25.0-35.0) pg MCHC 35.0 (31.0-37.0) g/dL RDW 12.7 (11.5-15.5) % Plt Count 229 (150-450) k/uL Neutrophils % 53 % Lymphocytes % 35 % Monocytes % 7 % Eosinophils % 2 % Basophils % 1 % Neutrophils # 1.7 (1.3-7.7) k/uL Lymphocytes # 1.1 (1.0-4.8) k/uL Monocytes # 0.2 (0-1.0) k/uL Eosinophils # 0.1 (0-0.7) k/uL Basophils # 0.0 (0-0.2) k/uL PT 9.6 (9.0-12.0) sec INR 0.9 (<1.2) APTT 24.5 (22.0-30.0) sec Sodium 135 L (137-145) mmol/L Potassium 3.8 (3.5-5.1) mmol/L Chloride 100 (98-107) mmol/L Carbon Dioxide 26 (22-30) mmol/L Anion Gap 9 mmol/L BUN 9 (7-17) mg/dL Creatinine 0.72 (0.52-1.04) mg/dL Est GFR (CKD-EPI)AfAm >90 (>60 ml/min/1.73 sqM) Est GFR (CKD-EPI)NonAf >90 (>60 ml/min/1.73 sqM) Glucose 95 (74-99) mg/dL Calcium 8.8 (8.4-10.2) mg/dL Total Bilirubin 0.3 (0.2-1.3) mg/dL AST 23 (14-36) U/L ALT 18 (9-52) U/L Alkaline Phosphatase 83 (38-126) U/L Total Protein 7.6 (6.3-8.2) g/dL Albumin 4.5 (3.5-5.0) g/dL Amylase 54 (30-110) U/L Lipase 75 (23-300) U/L Urine Color Urine Appearance (Clear) Urine pH (5.0-8.0) Ur Specific [place] (1.001-1.035) Urine Protein (Negative) Urine Glucose (UA) (Negative) Urine Ketones (Negative) Urine Blood (Negative) Urine Nitrite (Negative) Urine Bilirubin (Negative) Urine Urobilinogen (<2.0) mg/dL Ur Leukocyte Esterase (Negative) Urine RBC (0-5) /hpf Urine WBC (0-5) /hpf Ur Squamous Epith Cells (0-4) /hpf Urine Mucus (None) /hpf 01/25/19 Range/Units 14:44 WBC (3.8-10.6) k/uL RBC (3.80-5.40) m/uL Hgb (11.4-16.0) gm/dL Hct (34.0-46.0) % MCV (80.0-100.0) fL MCH (25.0-35.0) pg MCHC (31.0-37.0) g/dL RDW (11.5-15.5) % Plt Count (150-450) k/uL Neutrophils % % Lymphocytes % % Monocytes % % Eosinophils % % Basophils % % Neutrophils # (1.3-7.7) k/uL Lymphocytes # (1.0-4.8) k/uL Monocytes # (0-1.0) k/uL Eosinophils # (0-0.7) k/uL Basophils # (0-0.2) k/uL PT (9.0-12.0) sec INR (<1.2) APTT (22.0-30.0) sec Sodium (137-145) mmol/L Potassium (3.5-5.1) mmol/L Chloride (98-107) mmol/L Carbon Dioxide (22-30) mmol/L Anion Gap mmol/L BUN (7-17) mg/dL Creatinine (0.52-1.04) mg/dL Est GFR (CKD-EPI)AfAm (>60 ml/min/1.73 sqM) Est GFR (CKD-EPI)NonAf (>60 ml/min/1.73 sqM) Glucose (74-99) mg/dL Calcium (8.4-10.2) mg/dL Total Bilirubin (0.2-1.3) mg/dL AST (14-36) U/L ALT (9-52) U/L Alkaline Phosphatase (38-126) U/L Total Protein (6.3-8.2) g/dL Albumin (3.5-5.0) g/dL Amylase (30-110) U/L Lipase (23-300) U/L Urine Color Yellow Urine Appearance Cloudy H (Clear) Urine pH 5.5 (5.0-8.0) Ur Specific [place] 1.016 (1.001-1.035) Urine Protein Trace H (Negative) Urine Glucose (UA) Negative (Negative) Urine Ketones 1+ H (Negative) Urine Blood Small H (Negative) Urine Nitrite Negative (Negative) Urine Bilirubin Negative (Negative) Urine Urobilinogen <2.0 (<2.0) mg/dL Ur Leukocyte Esterase Negative (Negative) Urine RBC 1 (0-5) /hpf Urine WBC 1 (0-5) /hpf Ur Squamous Epith Cells 12 H (0-4) /hpf Urine Mucus Rare H (None) /hpf - Radiology Data Radiology results: report reviewed Disposition Clinical Impression: Diarrhea, Dehydration Disposition: HOME SELF-CARE Condition: Good Instructions (If sedation given, give patient instructions): Acute Diarrhea (ED) Additional Instructions: Patient has have close follow-up with primary care doctor. Patient recommended have a clear liquid diet. Return to the emergency department if any alarming signs or symptoms occur. Prescriptions: Loperamide [Imodium] 2 mg PO QID #15 capsule Ondansetron [Zofran ODT] 4 mg PO Q8HR #8 tab Is patient prescribed a controlled substance at d/c from ED?: No Referrals: Chavo Fofana MD [Primary Care Provider] - 1-2 days Time of Disposition: 16:09
[2019-01-25 14:52] LABS: Basophils % (A) 1 %; Eosinophils # (A) 0.1 k/uL (0-0.7); Eosinophils % (A) 2 %; HCT 41.5 % (34.0-46.0); HGB 14.5 gm/dL (11.4-16.0); Lymphocytes # (A) 1.1 k/uL (1.0-4.8); Lymphocytes % (A) 35 %; MCH 30.9 pg (25.0-35.0); MCV 88.5 fL (80.0-100.0); Mean Platelet Volume 6.4; Monocytes # (A) 0.2 k/uL (0-1.0); Monocytes % (A) 7 %; Neutrophils # (A) 1.7 k/uL (1.3-7.7); Neutrophils % (A) 53 %; Platelet Count 229 k/uL (150-450); RBC 4.69 m/uL (3.80-5.40); RDW 12.7 % (11.5-15.5); WBC 3.2 k/uL (3.8-10.6)
[2019-01-25 14:57] LABS: Appearance,Urine Cloudy (Clear); Bilirubin,Urine Negative (Negative); Blood,Urine Small (Negative); Color,Urine Yellow; Glucose,Urine (UA) Negative (Negative); Ketones,Urine 1+ (Negative); Leukocyte Esterase,Urine Negative (Negative); Mucus,Urine Rare /hpf; Nitrite,Urine Negative (Negative); PH, Urine 5.5 (5.0-8.0); Protein,Urine Trace (Negative); RBC,Urine 1 /hpf (0-5); Specific Gravity,Urine 1.016 (1.001-1.035); Squamous Epithelial Cell,Urine 12 /hpf (0-4); Urobilinogen,Urine <2.0 mg/dL (<2.0); WBC,Urine 1 /hpf (0-5)
[2019-01-25 15:02] LABS: ALT 18 U/L (9-52); AST 23 U/L (14-36); African American GFR (CKD) >90 (>60 ml/min/1.73 sqM); Albumin 4.5 g/dL (3.5-5.0); Alkaline Phosphatase 83 U/L (38-126); Amylase 54 U/L (30-110); Anion Gap 9 mmol/L; Blood Urea Nitrogen 9 mg/dL (7-17); Calcium 8.8 mg/dL (8.4-10.2); Carbon Dioxide 26 mmol/L (22-30); Chloride 100 mmol/L (98-107); Glucose 95 mg/dL (74-99); Lipase 75 U/L (23-300); Potassium 3.8 mmol/L (3.5-5.1); Sodium 135 mmol/L (137-145); Total Bilirubin 0.3 mg/dL (0.2-1.3); Total Protein 7.6 g/dL (6.3-8.2)
[2019-01-25 15:04] LABS: INR 0.9 (<1.2); Partial Thromboplastin Time 24.5 sec (22.0-30.0); Prothrombin Time 9.6 sec (9.0-12.0)
--- NOTE | 2019-01-25 15:58 | CT ---
EXAMINATION TYPE: CT abdomen pelvis w con DATE OF EXAM: 01/25/2019 HISTORY: Abdominal, rt side pain. Diarrhea, fever for several days. CT DLP: 679mGycm Automated Exposure Control for Dose Reduction was Utilized. CONTRAST: CT scan of the abdomen and pelvis is performed without oral but with IV Contrast, patient injected wi th 100 mL of Isovue 300. COMPARISON: CT abdomen and pelvis November 19, 2018 FINDINGS: LUNG BASES: No significant abnormality is appreciated. LIVER/GB: No significant abnormality is appreciated. PANCREAS: No significant abnormality is seen. SPLEEN: No significant abnormality is seen. ADRENALS: No significant abnormality is seen. KIDNEYS: No significant abnormality is seen. BOWEL: Suboptimal evaluation of bowel without enteric contrast. No suspicious small and large bowel d ilatation. Normal-appearing appendix from cecum redemonstrated coronal image 46. UTERUS/ADNEXA: Heterogeneous anteverted uterus. Stable right pelvic phlebolith axial image 79 LYMPH NODES: No greater than 1cm abdominal or pelvic lymph nodes are appreciated. OSSEOUS STRUCTURES: Slight scoliotic curvature redemonstrated. Mild to moderate disc space narrowing L2-L3 level again seen. OTHER: Stable tiny fat-containing umbilical hernia axial image 43. Mild Calcified plaque of the aorta extends into iliac branch vessels. IMPRESSION: No significant new or acute finding is seen to account for patient's clinical symptoms.
[2019-01-25 16:33] VITALS: BP 129/67; PULSE 60; RESP 16; TEMP 97.7
== END 2019-01-25 16:30 | disposition home or self-care (01) ==
LOC: EC 13:49
DX: E86.0 Dehydration (principal); R19.7 Diarrhea, unspecified; R10.813 Right lower quadrant abdominal tenderness; R50.9 Fever, unspecified; F31.9 Bipolar disorder, unspecified; F17.200 Nicotine dependence, unspecified, uncomplicated; Z86.14 Personal history of Methicillin resistant Staphylococcus aureus infection; Z79.899 Other long term (current) drug therapy; Z53.29 Procedure and treatment not carried out because of patient's decision for other reasons
CPT/HCPCS: 36415; 80053; 82150; 83690; 85025; 85610; 85730; 81001; 74177; 99284; 96374; 96375 ×2; 96361; J2270; J2405; C9113; Q9967

== ENCOUNTER → 2019-01-26 | Outpatient (CLI) | payer BC ==
[2019-01-23 15:15] VITALS: BMI 25.4
[2019-01-26 13:08] VITALS: BP 125/75; PULSE 71; RESP 16
--- NOTE | 2019-01-26 13:37 | P.CONS ---
History of Present Illness - Reason for Consult Consult date: 01/26/19 - Chief Complaint Pelvic pain - History of Present Illness This is a 58-year-old lady with lower abdomen and pelvic pain which started in September 2018 only about 4 months ago with no precipitating events. The patient feels this pain across her pelvis and around the scar tissue from her previous . She underwent ventral hernia repair recently and also abdominal lysis of adhesions by Dr. Evangelista. The pain gets worse with prolonged walking. It has no relationship with food. The patient has been having some vaginal bleeding lately and she is going to have D&C in a few weeks. She has been using Motrin from time to time for her pain. The patient has been having diarrhea for the last 3 days and she came to the ER yesterday to get some IV fluid to avoid dehydration however she is back to work today. Review of Systems Cardiovascular: Denies chest pain, Denies shortness of breath Respiratory: Denies cough Gastrointestinal: Reports diarrhea Genitourinary: Reports pelvic pain Menstruation: Reports postmenopausal Past Medical History Past Medical History: Pneumonia Additional Past Medical History / Comment(s): migraine headaches, hx. heart murmur History of Any Multi-Drug Resistant Organisms: MRSA Year Discovered:: 2011 MDRO Source:: right axilla, neck Past Surgical History: Section Additional Past Surgical History / Comment(s): laparoscopy w/lysis of adhesions in October, had robotic ventral hernia repair & lysis of adhesions in November Past Anesthesia/Blood Transfusion Reactions: No Reported Reaction Additional Past Anesthesia/Blood Transfusion Reaction / Comm: NO GENERAL ANESTH ESIA Past Psychological History: Anxiety Smoking Status: Current every day smoker Past Alcohol Use History: None Reported Additional Past Alcohol Use History / Comment(s): SMOKES 1/2 PPD SINCE AGE 15- SMOKED OFF AND ON-HAD QUIT FOR 10 YEARS AND WITH PREGNANCIES Past Drug Use History: None Reported - Past Family History Father Family Medical History: Cancer Additional Family Medical History / Comment(s): LUNG AND LIVER Medications and Allergies Home Medications Medication Instructions Recorded Confirmed Type ALPRAZolam [Xanax] 1 mg PO TID PRN 03/24/14 01/26/19 History Butalb/Acetaminophen/Caffeine 1 - 2 cap PO Q4HR PRN 10/16/18 01/26/19 History [Fioricet 50-300-40 mg Capsule] PARoxetine HCL [Paxil] 40 mg PO DAILY 10/16/18 01/26/19 History buPROPion XL [Wellbutrin Xl] 150 mg PO DAILY 10/16/18 01/26/19 History busPIRone HCl [Buspar] 10 mg PO DAILY 10/20/18 01/26/19 History Ondansetron [Zofran ODT] 4 mg PO Q8HR #8 tab 01/25/19 01/26/19 Rx Ibuprofen [Motrin Ib] 600 mg PO DIRECTED PRN 01/26/19 01/26/19 History Loperamide [Imodium] 2 mg PO QID PRN 01/26/19 01/26/19 History Allergies Allergy/AdvReac Type Severity Reaction Status Date / Time No Known Allergies Allergy Verified 01/26/19 12:54 Physical Exam Vitals: Vital Signs Pulse Resp BP 01/26/19 12:57 71 16 125/75 - Constitutional General appearance: average body habitus - EENT Eyes: PERRLA - Gastrointestinal Soft nontender abdomen. No allodynia to touch in the abdominal wall. No tingling or numbness in the abdominal wall. No rebound tenderness. - Neurologic Normal muscle strength in the lower extremities bilaterally. Straight leg raise test negative bilaterally. Normal deep tendon reflexes bilaterally. Neurologic: CNII-XII intact - Psychiatric Psychiatric: A&O x's 3, appropriate affect, intact judgment & insight Tensing the rectus abdominis muscle did not cause any abdominal wall pain. Assessment and Plan Plan: This is a 58-year-old lady with pelvic pain with no precipitating events. The physical exam is perfectly normal however the patient has been having some vaginal spotting that she is going to have D&C in a few weeks. He doesn't exactly know the cause of this pain however it might have some gynecologic etiology. The last abdominal CT was normal. The patient has been getting better since her ventral hernia repair and she rates her pain at 2 out of 10 today. It is intermittent is not constant and its frequency has been going down lately. I told the patient that she is not considered to have chronic pelvic pain at this point since it has been less than 6 months from the onset of this pain. We will await the D&C results and if there is no improvement in her abdominal pain then we'll see her 3 months from now for reevaluation. I thank Dr. Jiang for the referral.
== END | disposition home or self-care (01) ==
LOC: PNWHC3 12:47
PROVIDERS: ATTEND Anesthesiology
DX: R10.2 Pelvic and perineal pain (principal); F17.210 Nicotine dependence, cigarettes, uncomplicated; Z98.890 Other specified postprocedural states
CPT/HCPCS: 99211

== ENCOUNTER 2019-06-10 09:07 | Day surgery (SDC) | payer BC ==
[2019-06-08 13:52] VITALS: BMI 25.6
--- NOTE | 2019-06-10 07:42 | P.GSHP ---
History of Present Illness H&P Date: 06/10/19 CHIEF COMPLAINT: Colon screen HISTORY OF PRESENT ILLNESS: The patient is a 59-year-old female who presents for colon screen. Lower endoscopy was offered for further evaluation and management. PAST MEDICAL HISTORY: Please see list. PAST SURGICAL HISTORY: Please see list. MEDICATIONS: Please see list. ALLERGIES: Please see list. SOCIAL HISTORY: No illicit drug use FAMILY HISTORY: No reports of Crohn disease or ulcerative colitis. REVIEW OF ORGAN SYSTEMS: CONSTITUTIONAL: No reports of fevers or chills. PHYSICAL EXAM: VITAL SIGNS: Stable GENERAL: Well-developed pleasant in no acute distress. HEENT: No scleral icterus. Extraocular movements grossly intact. Moist buccal mucosa. NECK: Supple without lymphadenopathy. CHEST: Unlabored respirations. Equal bilateral excursions. CARDIOVASCULAR: Regular rate and rhythm. Distal 2+ pulses. ABDOMEN: Soft, nontender, nondistended. MUSCULOSKELETAL: No clubbing, cyanosis, or edema. ASSESSMENT: 1. Colon screen. PLAN: 1. Recommend proceeding with a lower endoscopy Past Medical History Past Medical History: Pneumonia Additional Past Medical History / Comment(s): migraine headaches, hx. heart murmur, occ gastritits, hx colon polyp, slight elevated cholesterol, History of Any Multi-Drug Resistant Organisms: MRSA Date of last positivie culture/infection: 2011 MDRO Source:: right axilla, neck Past Surgical History: Section Additional Past Surgical History / Comment(s): laparoscopy w/lysis of adhesions in October 2018, had robotic ventral hernia repair & lysis of adhesions in November 2018 Past Anesthesia/Blood Transfusion Reactions: No Reported Reaction Additional Past Anesthesia/Blood Transfusion Reaction / Comment(s): never had a blood transfusion Smoking Status: Current every day smoker - Past Family History Father Family Medical History: Cancer Additional Family Medical History / Comment(s): LUNG AND LIVER Medications and Allergies Home Medications Medication Instructions Recorded Confirmed Type ALPRAZolam [Xanax] 1 mg PO TID PRN 03/24/14 06/08/19 History Butalb/Acetaminophen/Caffeine 1 - 2 cap PO Q4HR PRN 10/16/18 06/08/19 History [Fioricet 50-300-40 mg Capsule] PARoxetine HCL [Paxil] 40 mg PO DAILY 10/16/18 06/08/19 History buPROPion XL [Wellbutrin Xl] 300 mg PO DAILY 10/16/18 06/08/19 History Allergies Allergy/AdvReac Type Severity Reaction Status Date / Time Tetanus Vaccines and Toxoid Allergy Swelling Verified 06/08/19 13:44
[~2019-06-10 09:07] MED LIST changes: -DEXAMETHASONE SOD PHOSPHATE 10 MG/ML 1 ML VIAL IV ONE; -HEPARIN SODIUM,PORCINE 5,000 UNIT/ML 1 ML VIAL SQ ONE; -MIDAZOLAM (PF) 2 MG/2 ML VIAL IV PRN; -SCOPOLAMINE 1.5MG/72HR PATCH TRANSDERM ONE; -ceFAZolin IN SWFI 2 GM/20 ML SYRINGE IVP ONE
[2019-06-10 09:24] VITALS: RESP 18; TEMP 97.8
[2019-06-10] MEDS ORDERED: LACTATED RINGERS 1,000 ML IV ONE (09:24)
[2019-06-10] MEDS ORDERED: ONDANSETRON 4 MG/2 ML VIAL IVP ONE (09:45)
[2019-06-10] MEDS ORDERED: PROPOFOL 10 MG/ML 20 ML VIAL IV ONE (09:46)
--- NOTE | 2019-06-10 10:38 | P.PCN ---
Date of Procedure: 06/10/19 Description of Procedure: PREOPERATIVE DIAGNOSIS: Personal history high-risk colon polyps Family history high-risk colon polyps POSTOPERATIVE DIAGNOSIS: Personal history high-risk colon polyps Family history high-risk colon polyps Tubular adenoma ascending colon, unable to retrieve External hemorrhoids, grade 3. OPERATION: Colonoscopy to the ileocecal valve and appendiceal orifice. Colonoscopy with attempted hot snare polypectomy Colonoscopy with Calli ink 3 mL ascending colon SURGEON: Ilana Jiang MD. ANESTHESIA: MAC. INDICATIONS: The patient is a 59-year-old female who presents for colonoscopy screening. last colonoscopy 5 years ago. Benefits and risks were described and informed consent was obtained. DESCRIPTION OF PROCEDURE: The patient had undergone Propopik prep. She had been brought into the operating room and laid in the left lateral decubitus position. After adequate intravenous sedation, the rectum was examined with 2% lidocaine jelly. External hemorrhoids were encountered. The rectal tone was within normal limits. No lesions were palpated in the rectal vault. An Olympus colonoscope was advanced until the ileocecal valve and appendiceal orifice were clearly viewed. The prep was fair with visualization of the mucosal folds. The scope was removed with visuali zation of each mucosal fold. Scattered sigmoid diverticulosis was encountered. At the proximal ascending colon behind a fold, a 8 mm flat tubular adenoma was found. Multiple maneuvers including adjust the patient supine and abdominal wall pressure was used to achieve the polyp via hot snare polypectomy however unsuccessful. Calli ink 3 mL was injected near the site of the polyp at the proximal ascending colon. No evidence of focal colitis was found. Retroflexion of the scope demonstrated grade 2 internal hemorrhoids without active bleeding or inflammation. The colon was desufflated. The patient had tolerated the procedure well. Withdrawal time was over 6 minutes. FINDINGS: Aronchick preparation quality scale 2 (1-5) Internal hemorrhoids, grade 2 External hemorrhoids, grade 3. No arteriovenous malformations. Scattered sigmoid diverticulosis without diverticulitis Flat tubular adenoma 8 mm proximal ascending colon unable to retrieve despite multiple maneuvers Injection of 3 mL Calli ink at site of polyp at proximal ascending colon No focal colitis. RECOMMENDATIONS: Repeat colonoscopy for snare polypectomy 6 months, October 2019 Plan - Discharge Summary New Discharge Prescriptions: No Action ALPRAZolam [Xanax] 1 mg PO TID PRN PRN Reason: Anxiety buPROPion XL [Wellbutrin Xl] 300 mg PO DAILY PARoxetine HCL [Paxil] 40 mg PO DAILY Butalb/Acetaminophen/Caffeine [Fioricet 50-300-40 mg Capsule] 1 - 2 cap PO Q4HR PRN PRN Reason: Migraine Headache Discharge Medication List ALPRAZolam [Xanax] 1 mg PO TID PRN 03/24/14 [History] Butalb/Acetaminophen/Caffeine [Fioricet 50-300-40 mg Capsule] 1 - 2 cap PO Q4HR PRN 10/16/18 [History] PARoxetine HCL [Paxil] 40 mg PO DAILY 10/16/18 [History] buPROPion XL [Wellbutrin Xl] 300 mg PO DAILY 10/16/18 [History] Follow up Appointment(s)/Referral(s): Ilana Jiang MD [STAFF PHYSICIAN] - 10/12/19 Patient Instructions/Handouts: Colorectal Polyps (GEN), Diverticulosis Diet (GEN), Diverticulosis (DC) Activity/Diet/Wound Care/Special Instructions: Repeat colonoscopy 6 months, October 2019 Discharge Disposition: HOME SELF-CARE
[2019-06-10 10:56] VITALS: BP 126/74; PULSE 72
== END 2019-06-10 11:34 | disposition home or self-care (01) ==
LOC: ORWHC2ENDO 09:07
PROVIDERS: ATTEND Surgery Plastic and Reconstructive Surgery
DX: Z12.11 Encounter for screening for malignant neoplasm of colon (principal); D12.2 Benign neoplasm of ascending colon; K57.30 Diverticulosis of large intestine without perforation or abscess without bleeding; K64.1 Second degree hemorrhoids; K64.4 Residual hemorrhoidal skin tags; G43.909 Migraine, unspecified, not intractable, without status migrainosus; E78.00 Pure hypercholesterolemia, unspecified; F32.9 Major depressive disorder, single episode, unspecified; F17.210 Nicotine dependence, cigarettes, uncomplicated; Z86.010 Personal history of colon polyps; Z87.01 Personal history of pneumonia (recurrent); Z86.14 Personal history of Methicillin resistant Staphylococcus aureus infection; Z98.890 Other specified postprocedural states; Z79.899 Other long term (current) drug therapy; Z88.7 Allergy status to serum and vaccine; Z83.71 Family history of colonic polyps; Z87.19 Personal history of other diseases of the digestive system; Z80.1 Family history of malignant neoplasm of trachea, bronchus and lung; Z80.0 Family history of malignant neoplasm of digestive organs
CPT/HCPCS: 45381; J2405; J2704; 44404

== ENCOUNTER → 2019-07-16 | Outpatient (CLI) | payer BC ==
--- NOTE | 2019-07-16 21:32 | CT ---
EXAMINATION TYPE: CT abdomen pelvis w con DATE OF EXAM: 07/16/2019 HISTORY: Colon adenoma, hx lap lysis of adhesions, ventral hernia repair. CT DLP: 1068mGycm Automated Exposure Control for Dose Reduction was Utilized. CONTRAST: CT scan of the abdomen and pelvis is performed without oral but with IV Contrast, patient injected wi th 100 mL of Isovue 300. COMPARISON: CT abdomen and pelvis January 25, 2019 and older CTs FINDINGS: LUNG BASES: No significant abnormality is appreciated. LIVER/GB: Mild hepatomegaly redemonstrated. Contracted gallbladder noted. PANCREAS: No significant abnormality is seen. SPLEEN: No significant abnormality is seen. ADRENALS: No significant abnormality is seen. KIDNEYS: No significant abnormality is seen. BOWEL: Evaluation of bowel suboptimal secondary to lack of enteric contrast. No suspicious small or l arge bowel dilatation. Normal-appearing appendix and cecum maximum is 57 posteriorly is redemonstrate d.. UTERUS/ADNEXA: Anteverted uterus. Right-sided pelvic phlebolith. LYMPH NODES: No greater than 1cm abdominal or pelvic lymph nodes are appreciated. OSSEOUS STRUCTURES: Slight scoliotic curvature again seen. Facet arthropathy lower lumbar levels. OTHER: Tiny fat-containing umbilical hernia axial image 49. IMPRESSION: No suspicious mass or adenopathy. No significant new or acute finding.
== END | disposition home or self-care (01) ==
LOC: RADCTMAIN 15:40
PROVIDERS: ATTEND Surgery Plastic and Reconstructive Surgery
DX: K63.5 Polyp of colon (principal)
CPT/HCPCS: 74177; Q9967

== ENCOUNTER 2019-07-30 08:51 | Day surgery (SDC) | payer BC ==
[2019-07-29 08:43] VITALS: BMI 25.3
[2019-07-30 09:21] VITALS: TEMP 97.9
[2019-07-30] MEDS ORDERED: LIDOCAINE 1% INJ 10MG/ML (20 ML MDV) ONE (09:56)
[2019-07-30] MEDS ORDERED: PROPOFOL 10 MG/ML 20 ML VIAL IV ONE (09:56)
[2019-07-30 10:56] VITALS: BP 149/83; PULSE 64; RESP 16
--- NOTE | 2019-07-30 11:22 | P.GSHP ---
History of Present Illness H&P Date: 07/30/19 CHIEF COMPLAINT: High risk colon polyps HISTORY OF PRESENT ILLNESS: The patient is a 59-year-old female who presents with high risk colon adenoma of the ascending colon unable to retrieve on previous colonoscopy. Lower endoscopy was offered for further evaluation and management. PAST MEDICAL HISTORY: Please see list. PAST SURGICAL HISTORY: Please see list. MEDICATIONS: Please see list. ALLERGIES: Please see list. SOCIAL HISTORY: No illicit drug use FAMILY HISTORY: No reports of Crohn disease or ulcerative colitis. REVIEW OF ORGAN SYSTEMS: CONSTITUTIONAL: No reports of fevers or chills. PHYSICAL EXAM: VITAL SIGNS: Stable GENERAL: Well-developed pleasant in no acute distress. HEENT: No scleral icterus. Extraocular movements grossly intact. Moist buccal mucosa. NECK: Supple without lymphadenopathy. CHEST: Unlabored respirations. Equal bilateral excursions. CARDIOVASCULAR: Regular rate and rhythm. Distal 2+ pulses. ABDOMEN: Soft, nontender, nondistended. MUSCULOSKELETAL: No clubbing, cyanosis, or edema. ASSESSMENT: 1. Colon adenoma with uncertain malignant potential, ascending colon PLAN: 1. Recommend proceeding with a lower endoscopy Past Medical History Past Medical History: Pneumonia Additional Past Medical History / Comment(s): migraine headaches, hx. heart murmur, occ gastritits, hx colon polyp, slight elevated cholesterol, PRE CANCEROUS ADENOMA FOUND DURING COLONOSCOPY 06/10/19 History of Any Multi-Drug Resistant Organisms: MRSA Date of last positivie culture/infection: 2011 MDRO Source:: right axilla, neck Past Surgical History: Section Additional Past Surgical History / Comment(s): laparoscopy w/lysis of adhesions in October 2018, had robotic ventral hernia repair & lysis of adhesions in November 2018, COLONOSCOPY 06/10/19 Past Anesthesia/Blood Transfusion Reactions: No Reported Reaction Additional Past Anesthesia/Blood Transfusion Reaction / Comment(s): never had a blood transfusion Smoking Status: Current every day smoker - Past Family History Father Family Medical History: Cancer Additional Family Medical History / Comment(s): LUNG AND LIVER Medications and Allergies Home Medications Medication Instructions Recorded Confirmed Type ALPRAZolam [Xanax] 1 mg PO TID PRN 03/24/14 07/29/19 History Butalb/Acetaminophen/Caffeine 1 - 2 cap PO Q4HR PRN 10/16/18 07/30/19 History [Fioricet 50-300-40 mg Capsule] PARoxetine HCL [Paxil] 40 mg PO DAILY 10/16/18 07/29/19 History buPROPion XL [Wellbutrin Xl] 300 mg PO DAILY 10/16/18 07/29/19 History Allergies Allergy/AdvReac Type Severity Reaction Status Date / Time Tetanus Vaccines and Toxoid Allergy Swelling Verified 07/30/19 09:26 Surgical - Exam Vital Signs Temp Pulse Resp BP Pulse Ox 97.9 F 71 16 146/64 99 07/30/19 09:20 07/30/19 09:20 07/30/19 09:20 07/30/19 09:20 07/30/19 09:20
--- NOTE | 2019-07-30 11:35 | P.PCN ---
Date of Procedure: 07/30/19 Description of Procedure: PREOPERATIVE DIAGNOSIS: High-risk colon adenoma, ascending, uncertain malignant potential Personal history high-risk colon polyps Family history high-risk colon polyps POSTOPERATIVE DIAGNOSIS: High-risk colon adenoma, ascending, uncertain malignant potential Personal history high-risk colon polyps Family history high-risk colon polyps Tubular adenoma ascending colon, retrieved Descending colon adenoma Cecum adenoma External hemorrhoids, grade 3. OPERATION: Colonoscopy to the ileocecal valve and appendiceal orifice. Colonoscopy with multiple hot snare polypectomies with rotatable snare SURGEON: Ilana Jiang MD. ANESTHESIA: MAC. INDICATIONS: The patient is a 59-year-old female who presents with high-risk large colon adenoma of the ascending colon unable to retrieve upon prior colonoscopy. She presents for resection of the colon adenoma. Benefits and risks were described and informed consent was obtained. DESCRIPTION OF PROCEDURE: The patient had undergone Suprep. She had been brought into the operating room and laid in the left lateral decubitus position. After adequate intravenous sedation, the rectum was examined with 2% lidocaine jelly. External hemorrhoids were encountered. The rectal tone was within normal limits. No lesions were palpated in the rectal vault. An Olympus colonoscope was advanced until the ileocecal valve and appendiceal orifice were clearly viewed. The prep was fair with visualization of the mucosal folds. The colon was also highly tortuous upon advancement. The previously un-retrievable polyp was identified along the ascending colon and snared to completion using a rotatable hot snare. Additionally, polyps along the cecum including sigmoid colon were also identified and removed by snare polypectomy. No evidence of focal colitis was found. Retroflexion of the scope demonstrated grade 2 internal hemorrhoids with out active bleeding or inflammation. The colon was desufflated. The patient had tolerated the procedure well. Withdrawal time was over 6 minutes. FINDINGS: Aronchick preparation quality scale 2 (1-5) Internal hemorrhoids, grade 2 External hemorrhoids, grade 3. No arteriovenous malformations. Removal of 3 polyps from the proximal, mid transverse colon and descending colon: - Snare polypectomy at cecum, 5 mm tubulovillous adenoma polyp. - Snare polypectomy at distal ascending colon, previously tattooed area, 10 mm flat villous adenoma polyp. - Snare polypectomy 50 cm from the anal verge, 6 mm flat villous adenoma polyp, descending colon No focal colitis. RECOMMENDATIONS: She has fast-growing high risk colon adenomas, recommend repeat colonoscopy 2 years, 2020 Plan - Discharge Summary Discharge Rx Participant: No New Discharge Prescriptions: No Action ALPRAZolam [Xanax] 1 mg PO TID PRN PRN Reason: Anxiety buPROPion XL [Wellbutrin Xl] 300 mg PO DAILY PARoxetine HCL [Paxil] 40 mg PO DAILY Butalb/Acetaminophen/Caffeine [Fioricet 50-300-40 mg Capsule] 1 - 2 cap PO Q4HR PRN PRN Reason: Migraine Headache Discharge Medication List ALPRAZolam [Xanax] 1 mg PO TID PRN 03/24/14 [History] Butalb/Acetaminophen/Caffeine [Fioricet 50-300-40 mg Capsule] 1 - 2 cap PO Q4HR PRN 10/16/18 [History] PARoxetine HCL [Paxil] 40 mg PO DAILY 10/16/18 [History] buPROPion XL [Wellbutrin Xl] 300 mg PO DAILY 10/16/18 [History] Follow up Appointment(s)/Referral(s): Ilana Jiang MD [STAFF PHYSICIAN] - As Needed Patient Instructions/Handouts: *[facility]gery [facility] - (Anesthesia) Endoscopy Discharge Instructions, Colorectal Polyps (IP) Activity/Diet/Wound Care/Special Instructions: COLONOSCOPY 2 YEARS FOR NEXT SCREENING2020 Discharge Disposition: HOME SELF-CARE
== END 2019-07-30 11:30 | disposition home or self-care (01) ==
LOC: ORWHC2ENDO 08:51
PROVIDERS: ATTEND Surgery Plastic and Reconstructive Surgery
DX: Z12.11 Encounter for screening for malignant neoplasm of colon (principal); D12.2 Benign neoplasm of ascending colon; D12.4 Benign neoplasm of descending colon; D12.0 Benign neoplasm of cecum; K64.2 Third degree hemorrhoids; K64.1 Second degree hemorrhoids; Z86.010 Personal history of colon polyps; Z83.71 Family history of colonic polyps; G43.909 Migraine, unspecified, not intractable, without status migrainosus; E78.00 Pure hypercholesterolemia, unspecified; Z86.14 Personal history of Methicillin resistant Staphylococcus aureus infection; Z98.891 History of uterine scar from previous surgery; Z98.890 Other specified postprocedural states; Z87.19 Personal history of other diseases of the digestive system; F17.200 Nicotine dependence, unspecified, uncomplicated; Z88.7 Allergy status to serum and vaccine; Z79.899 Other long term (current) drug therapy
CPT/HCPCS: 88305; 45385; J2001; J2704

== ENCOUNTER 2020-04-02 15:34 | Emergency (ER) | payer BC ==
[2020-04-02 15:40] VITALS: TEMP 98
[2020-04-02] MEDS ORDERED: diphenhydrAMINE 50 MG/ML 1 ML VIAL IVP STA (16:05)
[2020-04-02] MEDS ORDERED: MECLIZINE 12.5 MG TAB PO STA (16:05)
[2020-04-02] MEDS ORDERED: SODIUM CHLORIDE 0.9% 500 ML 500 ML IV STA (16:05)
[2020-04-02 16:33] LABS: Basophils % (A) 1 %; Eosinophils # (A) 0.1 k/uL (0-0.7); Eosinophils % (A) 2 %; HCT 39.5 % (34.0-46.0); HGB 13.8 gm/dL (11.4-16.0); Lymphocytes # (A) 1.5 k/uL (1.0-4.8); Lymphocytes % (A) 32 %; MCH 31.7 pg (25.0-35.0); MCHC 34.8 g/dL (31.0-37.0); MCV 91.1 fL (80.0-100.0); Mean Platelet Volume 6.9; Monocytes # (A) 0.3 k/uL (0-1.0); Monocytes % (A) 6 %; Neutrophils # (A) 2.8 k/uL (1.3-7.7); Neutrophils % (A) 59 %; Platelet Count 209 k/uL (150-450); RBC 4.34 m/uL (3.80-5.40); RDW 12.7 % (11.5-15.5); WBC 4.8 k/uL (3.8-10.6)
--- NOTE | 2020-04-02 16:35 | ED ---
Dizziness HPI - General Chief Complaint: Dizziness Stated Complaint: Weakness Time Seen by Provider: 04/02/20 15:43 Source: patient, EMS Mode of arrival: EMS Limitations: no limitations - History of Present Illness Initial Comments: patient is a 59-year-old female presenting to the emergency department via EMS with complaints of feeling dizzy as well as a mild headache and some mild nausea. She states she was sitting at her kitchen table when she started having the dizziness along with her legs feeling heavy. She does admit to history of migraines. She states this headache appears to be more in the back of her head. She was able to ambulate. She denies any chest pain, shortness of breath, vomiting, diarrhea. She denies any changes in her vision, muscle weakness. She denies any new recent medications. She denies history of vertigo. she denies any recent fever, chills, urinary complaints. She has no further complaints at this time. Upon arrival to the ER, her vital signs are stable. - Related Data Home Medications Medication Instructions Recorded Confirmed ALPRAZolam [Xanax] 1 mg PO TID PRN 03/24/14 04/02/20 PARoxetine HCL [Paxil] 40 mg PO DAILY 10/16/18 04/02/20 Albuterol Inhaler [Ventolin Hfa 2 puff INHALATION RT-Q4H PRN 04/02/20 04/02/20 Inhaler] Butalb/APAP/Caff 50-325-40Mg 1 tab PO Q4H PRN 04/02/20 04/02/20 [Fioricet 50-325-40] Allergies Allergy/AdvReac Type Severity Reaction Status Date / Time Tetanus Vaccines and Toxoid Allergy Swelling/Arm Verified 04/02/20 18:05 Pain Review of Systems ROS Statement: Those systems with pertinent positive or pertinent negative responses have been documented in the HPI. ROS Other: All systems not noted in ROS Statement are negative. Past Medical History Past Medical History: Pneumonia Additional Past Medical History / Comment(s): migraine headaches, hx. heart murmur, occ gastritits, hx colon polyp, slight elevated cholesterol, PRE CANCEROUS ADENOMA FOUND DURING COLONOSCOPY 06/10/19 History of Any Multi-Drug Resistant Organisms: MRSA Date of last positivie culture/infection: 2011 MDRO Source:: right axilla, neck Past Surgical History: Section Additional Past Surgical History / Comment(s): laparoscopy w/lysis of adhesions in October 2018, had robotic ventral hernia repair & lysis of adhesions in November 2018, COLONOSCOPY 06/10/19 Past Anesthesia/Blood Transfusion Reactions: No Reported Reaction Additional Past Anesthesia/Blood Transfusion Reaction / Comment(s): never had a blood transfusion Past Psychological History: Anxiety, Depression Smoking Status: Current every day smoker Past Alcohol Use History: Rare Past Drug Use History: None Reported - Past Family History Father Family Medical History: Cancer Additional Family Medical History / Comment(s): LUNG AND LIVER General Exam - General Exam Comments Initial Comments: GENERAL: Patient is well-developed and well-nourished. Patient is nontoxic and in no acute distress. HEAD: Atraumatic, normocephalic. EYES: Pupils equal round and reactive to light, extraocular movements intact, sclera anicteric, conjunctiva are normal. Eyelids were unremarkable. ENT: TMs normal, nares patent, oropharynx clear without exudates. Moist mucous membranes. NECK: Normal range of motion, supple without lymphadenopathy or JVD. LUNGS: Unlabored respirations. Breath sounds clear to auscultation bilaterally and equal. No wheezes rales or rhonchi. HEART: Regular rate and rhythm without murmurs, rubs or gallops. ABDOMEN: Soft, nontender, normoactive bowel sounds. No guarding, no rebound. No masses appreciated. : Deferred MUSCULOSKELETAL: Normal extremities with adequate strength and normal range of motion, no pitting or edema. No clubbing or cyanosis. NEUROLOGICAL: Patient is alert and oriented x 3. Motor and sensory are also intact. Cranial nerves II through XII grossly intact. Symmetrical smile. Normal speech, normal gait. PSYCH: Normal mood, normal affect. SKIN: Warm, Dry, normal turgor, no rashes or lesions noted. Limitations: no limitations Course Vital Signs 04/02/20 04/02/20 15:35 16:57 Temperature 98.0 F Pulse Rate 67 56 L Respiratory 16 16 Rate Blood Pressure 142/71 149/81 O2 Sat by Pulse 97 100 Oximetry EKG Findings - EKG Comments: EKG Findings:: normal sinus rhythm, normal ECG, ventricular rate 60, P on arrival 164, QT 420. Medical Decision Making - Medical Decision Making patient is a 59-year-old female here for an episode of dizziness, nausea, legs feeling heavy as well as a headache. Her vital signs are stable. Her exam is unremarkable, no neural deficits. CT of the brain shows no acute abnormalities, lab work is unremarkable, urine shows no evidence of infection. I did give patient some fluids, Reglan, Antivert, Benadryl with some improvement in her symptoms. She is able to ambulate. Recommended following up with ENT for possible vertigo. Patient is in agreement with this plan of care. She states she feels well to go home. She can also follow up with her PCP. She is in agreement with this plan of care. Return parameters were discussed with the patient she verbalized understanding. Case discussed with Dr. Barillas. - Lab Data Result diagrams: 04/02/20 16:13 04/02/20 16:13 Lab Results 04/02/20 04/02/20 04/02/20 Range/Units 16:13 16:13 16:13 WBC 4.8 (3.8-10.6) k/uL RBC 4.34 (3.80-5.40) m/uL Hgb 13.8 (11.4-16.0) gm/dL Hct 39.5 (34.0-46.0) % MCV 91.1 (80.0-100.0) fL MCH 31.7 (25.0-35.0) pg MCHC 34.8 (31.0-37.0) g/dL RDW 12.7 (11.5-15.5) % Plt Count 209 (150-450) k/uL Neutrophils % 59 % Lymphocytes % 32 % Monocytes % 6 % Eosinophils % 2 % Basophils % 1 % Neutrophils # 2.8 (1.3-7.7) k/uL Lymphocytes # 1.5 (1.0-4.8) k/uL Monocytes # 0.3 (0-1.0) k/uL Eosinophils # 0.1 (0-0.7) k/uL Basophils # 0.0 (0-0.2) k/uL Sodium 131 L (137-145) mmol/L Potassium 3.9 (3.5-5.1) mmol/L Chloride 97 L (98-107) mmol/L Carbon Dioxide 27 (22-30) mmol/L Anion Gap 7 mmol/L BUN 9 (7-17) mg/dL Creatinine 0.64 (0.52-1.04) mg/dL Est GFR (CKD-EPI)AfAm >90 (>60 ml/min/1.73 sqM) Est GFR (CKD-EPI)NonAf >90 (>60 ml/min/1.73 sqM) Glucose 96 (74-99) mg/dL Plasma Lactic Acid Burak 0.9 (0.7-2.0) mmol/L Calcium 9.2 (8.4-10.2) mg/dL Total Bilirubin 0.3 (0.2-1.3) mg/dL AST 21 (14-36) U/L ALT 18 (4-34) U/L Alkaline Phosphatase 85 (38-126) U/L Troponin I (0.000-0.034) ng/mL Total Protein 6.8 (6.3-8.2) g/dL Albumin 4.1 (3.5-5.0) g/dL Urine Color Urine Appearance (Clear) Urine pH (5.0-8.0) Ur Specific Hawks (1.001-1.035) Urine Protein (Negative) Urine Glucose (UA) (Negative) Urine Ketones (Negative) Urine Blood (Negative) Urine Nitrite (Negative) Urine Bilirubin (Negative) Urine Urobilinogen (<2.0) mg/dL Ur Leukocyte Esterase (Negative) 04/02/20 04/02/20 Range/Units 16:13 17:31 WBC (3.8-10.6) k/uL RBC (3.80-5.40) m/uL Hgb (11.4-16.0) gm/dL Hct (34.0-46.0) % MCV (80.0-100.0) fL MCH (25.0-35.0) pg MCHC (31.0-37.0) g/dL RDW (11.5-15.5) % Plt Count (150-450) k/uL Neutrophils % % Lymphocytes % % Monocytes % % Eosinophils % % Basophils % % Neutrophils # (1.3-7.7) k/uL Lymphocytes # (1.0-4.8) k/uL Monocytes # (0-1.0) k/uL Eosinophils # (0-0.7) k/uL Basophils # (0-0.2) k/uL Sodium (137-145) mmol/L Potassium (3.5-5.1) mmol/L Chloride (98-107) mmol/L Carbon Dioxide (22-30) mmol/L Anion Gap mmol/L BUN (7-17) mg/dL Creatinine (0.52-1.04) mg/dL Est GFR (CKD-EPI)AfAm (>60 ml/min/1.73 sqM) Est GFR (CKD-EPI)NonAf (>60 ml/min/1.73 sqM) Glucose (74-99) mg/dL Plasma Lactic Acid Burak (0.7-2.0) mmol/L Calcium (8.4-10.2) mg/dL Total Bilirubin (0.2-1.3) mg/dL AST (14-36) U/L ALT (4-34) U/L Alkaline Phosphatase (38-126) U/L Troponin I <0.012 (0.000-0.034) ng/mL Total Protein (6.3-8.2) g/dL Albumin (3.5-5.0) g/dL Urine Color Colorless Urine Appearance Clear (Clear) Urine pH 5.5 (5.0-8.0) Ur Specific Hawks 1.002 (1.001-1.035) Urine Protein Negative (Negative) Urine Glucose (UA) Negative (Negative) Urine Ketones Negative (Negative) Urine Blood Negative (Negative) Urine Nitrite Negative (Negative) Urine Bilirubin Negative (Negative) Urine Urobilinogen <2.0 (<2.0) mg/dL Ur Leukocyte Esterase Negative (Negative) Disposition Clinical Impression: Dizziness, Nausea Disposition: HOME SELF-CARE Condition: Stable Instructions (If sedation given, give patient instructions): Dizziness (ED) Additional Instructions: Please return to the Emergency Department if symptoms worsen or any other concerns. Follow-up with ENT as discussed. May continue with meclizine for additional dizziness. Is patient prescribed a controlled substance at d/c from ED?: No Referrals: Chavo Fofana MD [Primary Care Provider] - 1-2 days Nakul Mo MD [STAFF PHYSICIAN] - 1-2 days
[2020-04-02 16:42] LABS: ALT 18 U/L (4-34); AST 21 U/L (14-36); African American GFR (CKD) >90 (>60 ml/min/1.73 sqM); Albumin 4.1 g/dL (3.5-5.0); Alkaline Phosphatase 85 U/L (38-126); Anion Gap 7 mmol/L; Blood Urea Nitrogen 9 mg/dL (7-17); Calcium 9.2 mg/dL (8.4-10.2); Carbon Dioxide 27 mmol/L (22-30); Chloride 97 mmol/L (98-107); Glucose 96 mg/dL (74-99); Non-African American GFR(CKD) >90 (>60 ml/min/1.73 sqM); Potassium 3.9 mmol/L (3.5-5.1); Sodium 131 mmol/L (137-145); Total Bilirubin 0.3 mg/dL (0.2-1.3); Total Protein 6.8 g/dL (6.3-8.2)
--- NOTE | 2020-04-02 16:49 | CT ---
EXAMINATION TYPE: CT brain wo con DATE OF EXAM: 04/02/2020 COMPARISON: 10/23/2012 HISTORY: Dizziness, headache and double vision. CT DLP: 1099.4 mGycm Automated exposure control for dose reduction was used. Images were obtained without contrast. Ventricles and sulci are within normal limits. There is minimal atrophy. There is no mass effect nor midline shift. There is no sign of intracranial hemorrhage. The calvarium is intact. There is mucosal thickening in the left maxillary sinus. IMPRESSION: Negative CT scan of the brain. No adverse change compared to old exam. Left maxillary sinusitis is probably new compared to old exam.
[2020-04-02] MEDS ORDERED: METOCLOPRAMIDE 5 MG/ML 2 ML VIAL IVP STA (17:25)
[2020-04-02] MEDS ORDERED: KETOROLAC 15 MG/ML 1 ML VIAL IVP STA (17:25)
[2020-04-02 17:48] LABS: Appearance,Urine Clear (Clear); Bilirubin,Urine Negative (Negative); Blood,Urine Negative (Negative); Color,Urine Colorless; Glucose,Urine (UA) Negative (Negative); Ketones,Urine Negative (Negative); Leukocyte Esterase,Urine Negative (Negative); Nitrite,Urine Negative (Negative); PH, Urine 5.5 (5.0-8.0); Protein,Urine Negative (Negative); Specific Gravity,Urine 1.002 (1.001-1.035); Urobilinogen,Urine <2.0 mg/dL (<2.0)
[2020-04-02 18:26] VITALS: BP 124/68; PULSE 65; RESP 18
== END 2020-04-02 18:29 | disposition home or self-care (01) ==
LOC: EC 15:34
DX: R42 Dizziness and giddiness (principal); R11.0 Nausea; R51 Headache; F17.200 Nicotine dependence, unspecified, uncomplicated; Z88.7 Allergy status to serum and vaccine; F41.9 Anxiety disorder, unspecified; F32.9 Major depressive disorder, single episode, unspecified; Z79.899 Other long term (current) drug therapy; Z86.14 Personal history of Methicillin resistant Staphylococcus aureus infection
CPT/HCPCS: 96374; 96375; 96361; 99284; 36415; 93005; 80053; 83605; 84484; 85025; 81003; 70450; J1200; J2765

== ENCOUNTER → 2020-04-21 | Outpatient (CLI) | payer BC ==
--- NOTE | 2020-04-22 12:06 | MM ---
Reason for exam: screening (asymptomatic). Last mammogram was performed 2 years and 9 months ago. History: Patient is postmenopausal. Family history of breast cancer in maternal aunt. Benign US left guided mammotome of the left breast, November 07, 2005. Took hormonal contraceptives for 1 year beginning at age 24. Physical Findings: A clinical breast exam by your physician is recommended on an annual basis and results should be correlated with mammographic findings. MG 3D Screening Mammo W/Cad Bilateral CC and MLO view(s) were taken. Prior study comparison: July 31, 2017, bilateral MG 3d diag mammo w/cad [facility]. January 04, 2016, bilateral MG screening mammo w CAD. The breast tissue is heterogeneously dense. This may lower the sensitivity of mammography. There is no discrete abnormality. No significant changes when compared with prior studies. ASSESSMENT: Negative, BI-RAD 1 RECOMMENDATION: Routine screening mammogram of both breasts in 1 year.
== END | disposition home or self-care (01) ==
LOC: RADMAMWWP 11:51
PROVIDERS: ATTEND Family Medicine
DX: Z12.31 Encounter for screening mammogram for malignant neoplasm of breast (principal)
CPT/HCPCS: 77063; 77067

== ENCOUNTER 2021-01-31 18:31 | Observation (INO) | payer BC, MEDICAID ==
[2021-01-31] MEDS ORDERED: MECLIZINE 12.5 MG TAB PO STA (19:26)
[2021-01-31] MEDS ORDERED: SODIUM CHLORIDE 0.9% 1,000 ML IV STA (19:26)
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
[2021-01-31 19:56] LABS: Appearance,Urine Clear (Clear); Basophils # (A) 0.1 k/uL (0-0.2); Basophils % (A) 1 %; Bilirubin,Urine Negative (Negative); Blood,Urine Negative (Negative); Color,Urine Colorless; Eosinophils # (A) 0.1 k/uL (0-0.7); Eosinophils % (A) 1 %; Glucose,Urine (UA) Negative (Negative); HCT 39.7 % (34.0-46.0); HGB 14.4 gm/dL (11.4-16.0); Ketones,Urine Negative (Negative); Leukocyte Esterase,Urine Negative (Negative); Lymphocytes # (A) 2.3 k/uL (1.0-4.8); Lymphocytes % (A) 39 %; MCH 32.4 pg (25.0-35.0); MCHC 36.2 g/dL (31.0-37.0); MCV 89.4 fL (80.0-100.0); Mean Platelet Volume 6.8; Monocytes # (A) 0.4 k/uL (0-1.0); Monocytes % (A) 7 %; Neutrophils % (A) 51 %; Nitrite,Urine Negative (Negative); Platelet Count 243 k/uL (150-450); Protein,Urine Negative (Negative); RBC 4.44 m/uL (3.80-5.40); RDW 12.5 % (11.5-15.5); Specific Gravity,Urine 1.002 (1.001-1.035); Urobilinogen,Urine <2.0 mg/dL (<2.0)
[2021-01-31 20:00] LABS: Prothrombin Time 10.6 sec (9.0-12.0)
[2021-01-31 20:15] LABS: ALT 13 U/L (4-34); AST 20 U/L (14-36); African American GFR (CKD) >90 (>60 ml/min/1.73 sqM); Albumin 4.5 g/dL (3.5-5.0); Alkaline Phosphatase 93 U/L (38-126); Anion Gap 7 mmol/L; Blood Urea Nitrogen 10 mg/dL (7-17); Calcium 9.7 mg/dL (8.4-10.2); Carbon Dioxide 29 mmol/L (22-30); Chloride 97 mmol/L (98-107); Glucose 119 mg/dL (74-99); Non-African American GFR(CKD) >90 (>60 ml/min/1.73 sqM); Potassium 4.2 mmol/L (3.5-5.1); Sodium 133 mmol/L (137-145); Total Bilirubin 0.1 mg/dL (0.2-1.3); Total Protein 7.1 g/dL (6.3-8.2)
--- NOTE | 2021-01-31 20:45 | CT ---
EXAMINATION TYPE: CT brain wo con DATE OF EXAM: 01/31/2021 COMPARISON: 04/02/2020 HISTORY: Headache, bilateral vision changes, dizziness CT DLP: 1091.4 mGycm Automated exposure control for dose reduction was used. Ventricles have normal size. There is no mass effect nor midline shift. There is no sign of intracran ial hemorrhage. Calvarium is intact. Skull base is intact. There is normal aeration of the mastoid si nuses. IMPRESSION: Negative CT scan of the brain. There is clearing of the left maxillary sinusitis compared to old exam .
[2021-01-31] MEDS ORDERED: ONDANSETRON 4 MG/2 ML VIAL IVP STA (21:00)
[2021-01-31] MEDS ORDERED: MORPHINE SULFATE 4 MG/ML SYRINGE IVP STA (21:00)
--- NOTE | 2021-01-31 21:04 | XR ---
EXAMINATION TYPE: XR chest 2V DATE OF EXAM: 01/31/2021 COMPARISON: 07/10/2013 HISTORY: Dizziness TECHNIQUE: FINDINGS: Heart and mediastinum are normal. Lungs are clear. Diaphragm is normal. Bony thorax is inta ct. There are chest leads. IMPRESSION: Normal chest. No adverse change.
[2021-01-31] MEDS ORDERED: diphenhydrAMINE 50 MG/ML 1 ML VIAL IVP STA (21:23)
[2021-01-31] MEDS ORDERED: ASPIRIN 81 MG PO STA (21:23)
[2021-01-31] MEDS ORDERED: NALOXONE 0.4 MG/ML 1 ML VIAL IV PRN (21:29)
[2021-01-31] MEDS ORDERED: ACETAMINOPHEN TAB 325 MG TAB PO PRN (21:29)
[2021-01-31] MEDS ORDERED: SODIUM CHLORIDE 0.9% 1,000 ML IV SCH (21:30)
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
[2021-02-01 03:42] VITALS: TEMP 98
[2021-02-01 07:28] LABS: African American GFR (CKD) >90 (>60 ml/min/1.73 sqM); Anion Gap 6 mmol/L; Blood Urea Nitrogen 10 mg/dL (7-17); Calcium 8.6 mg/dL (8.4-10.2); Carbon Dioxide 26 mmol/L (22-30); Chloride 108 mmol/L (98-107); Glucose 102 mg/dL (74-99); Non-African American GFR(CKD) >90 (>60 ml/min/1.73 sqM); Potassium 4.3 mmol/L (3.5-5.1); Sodium 140 mmol/L (137-145)
[2021-02-01] MEDS ORDERED: BUTALB/APAP/CAFF 50-325-40MG TAB PO PRN (07:40)
[2021-02-01] MEDS ORDERED: HEPARIN SODIUM,PORCINE/PF 5,000 UNIT/0.5 ML SYRINGE SQ SCH (08:00)
--- NOTE | 2021-02-01 08:27 | US ---
EXAMINATION TYPE: US carotid duplex BILAT DATE OF EXAM: 02/01/2021 COMPARISON: NONE CLINICAL HISTORY: TIA. EXAM MEASUREMENTS: RIGHT: Peak Systolic Velocity (PSV) cm/sec ----- Right CCA: 65.5 ----- Right ICA: 103.6 ----- Right ECA: 80.4 ICA/CCA ratio: 1.6 RIGHT: End Diastole cm/sec ----- Right CCA: 24.8 ----- Right ICA: 24.8 ----- Right ECA: 12.8 LEFT: Peak Systolic Velocity (PSV) cm/sec ----- Left CCA: 74.3 ----- Left ICA: 73.5 ----- Left ECA: 87.1 ICA/CCA ratio: 1.0 LEFT: End Diastole cm/sec ----- Left CCA: 27.9 ----- Left ICA: 26.3 ----- Left ECA: 15.6 VERTEBRALS (direction of flow): Right Vertebral: Antegrade Left Vertebral: Antegrade Rhythm: Normal Mild plaque with no significant velocity elevations. IMPRESSION: No sonographic evidence for hemodynamically significant stenosis in the carotid arteries. Criteria for Assigning % of Stenosis / Diameter reduction (Estimation based on the indirect measurements of the internal carotid artery velocities (ICA PSV). 1. Normal (no stenosis)=ICA PSV < 125 cm/s: ratio < 2.0: ICA EDV<40 cm/s. 2. Less than 50% stenosis=ICA PSV < 125 cm/s: ratio < 2.0: ICA EDV<40 cm/s. 3. 50 to 69% stenosis=ICA PSV of 125 to 230 cm/s: ration 2.0 ? 4.0: ICA EDV 40-100 cm/s. 4. Greater than 70% stenosis to near occlusion= ICA PSV > 230 cm/s: ratio > 4.0: ICA EDV > 100 cm/s. 5. Near occlusion= ICA PSV velocities may be low or undetectable: variable ratio and ICA EDV. 6. Total occlusion=unable to detect flow.
[2021-02-01] MEDS ORDERED: ASPIRIN 81 MG PO SCH (09:00)
[2021-02-01] MEDS ORDERED: PARoxetine 20 MG TAB PO SCH (09:00)
[2021-02-01 09:55] VITALS: BP 107/53; PULSE 78; RESP 18
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
--- NOTE | 2021-02-01 13:14 | ECHOF ---
Referral Reason:TIA MEASUREMENTS -------- HEIGHT: 162.6 cm WEIGHT: 69.9 kg BP: 129/49 RVIDd: 2.4 cm (< 3.3) IVSd: 1.0 cm (0.6 - 1.1) LVIDd: 3.9 cm (3.9 - 5.3) LVPWd: 0.9 cm (0.6 - 1.1) IVSs: 1.2 cm LVIDs: 3.0 cm LVPWs: 1.2 cm LA Diam: 2.3 cm (2.7 - 3.8) Ao Diam: 2.4 cm (2.0 - 3.7) AV Cusp: 1.4 cm (1.5 - 2.6) LA Diam: 2.9 cm (2.7 - 3.8) MV EXCURSION: 18.612 mm (> 18.000) MV EF SLOPE: 93 mm/s (70 - 150) EPSS: 0.1 cm MV E Reza: 0.98 m/s MV DecT: 245 ms MV A Reza: 0.83 m/s MV E/A Ratio: 1.18 RAP: 5.00 mmHg RVSP: 41.65 mmHg FINDINGS -------- Sinus rhythm. This was a technically good study. LV size, wall thickness and systolic function are normal, with an EF greater than 55%. The left gaby tricular size is normal. The right ventricle is normal in size. Normal LA size by volume 22+/-6 ml/m2. The right atrial size is normal. Agitated Saline study is negative, no crossing at atrial level or right to left shunt noted. The aortic valve is trileaflet, and appears structurally normal. No aortic stenosis or regurgitation. Mild mitral regurgitation is present. No regurgitation noted There is mild pulmonary hypertension. The right ventricular systolic press ure, as measured by Doppler, is 41.65mmHg. Trace/mild (physiologic) pulmonic regurgitation. The aortic root size is normal. There is no pericardial effusion. CONCLUSIONS -------- 1. LV size, wall thickness and systolic function are normal, with an EF greater than 55%. 2. The left ventricular size is normal. 3. The right ventricle is normal in size. 4. Normal LA size by volume 22+/-6 ml/m2. 5. The right atrial size is normal. 6. Agitated Saline study is negative, no crossing at atrial level or right to left shunt noted. 7. The aortic valve is trileaflet, and appears structurally normal. No aortic stenosis or regurgitati on. 8. Mild mitral regurgitation is present. 9. No regurgitation noted 10. There is mild pulmonary hypertension. 11. The right ventricular systolic pressure, as measured by Doppler, is 41.65mmHg. 12. Trace/mild (physiologic) pulmonic regurgitation. 13. The aortic root size is normal. 14. There is no pericardial effusion. FASHION CONSULTANT: Henna Peralta RDCS
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
[2021-02-01 19:50] LABS: Chol/HDL Ratio 5.97; LDL Cholesterol,Calculated 118.2 mg/dL (0.0-131.0); VLDL Calculation 35.8 mg/dL (5.00-40.00)
[2021-02-01] MEDS ORDERED: ATORVASTATIN 40 MG TAB PO SCH (21:00)
[2021-02-01] MEDS ORDERED: ATORVASTATIN 80 MG TAB PO SCH (21:00)
== END 2021-02-01 11:44 | disposition home or self-care (01) ==
LOC: EC 18:31 → 3SCARD 22:29
PROVIDERS: ADMIT Internal Medicine; ATTEND Internal Medicine
DX: G45.9 Transient cerebral ischemic attack, unspecified (principal); E87.1 Hypo-osmolality and hyponatremia; F41.9 Anxiety disorder, unspecified; Z20.822 Contact with and (suspected) exposure to COVID-19; F41.0 Panic disorder [episodic paroxysmal anxiety]; F32.9 Major depressive disorder, single episode, unspecified; J32.0 Chronic maxillary sinusitis; R01.1 Cardiac murmur, unspecified; F17.210 Nicotine dependence, cigarettes, uncomplicated; Z79.899 Other long term (current) drug therapy; Z88.7 Allergy status to serum and vaccine; Z86.010 Personal history of colon polyps; Z87.01 Personal history of pneumonia (recurrent); Z86.14 Personal history of Methicillin resistant Staphylococcus aureus infection; Z86.69 Personal history of other diseases of the nervous system and sense organs; Z80.1 Family history of malignant neoplasm of trachea, bronchus and lung; Z80.0 Family history of malignant neoplasm of digestive organs
CPT/HCPCS: 96361; 96374; 96375; 99285; 36415; 93005; 93306; 92523; 80061; 80053; 80048; 84443; 84484; 85025; 85610; 81003; 87635; 71046; 93880; 70450; G0378 ×2; J2270; J1200; J2405

== ENCOUNTER 2021-02-05 15:03 | Observation (INO) | payer MEDICAID ==
[2021-02-05] MEDS ORDERED: diphenhydrAMINE 50 MG/ML 1 ML VIAL IVP STA (16:33)
[2021-02-05] MEDS ORDERED: KETOROLAC 15 MG/ML 1 ML VIAL IVP STA (16:33)
[2021-02-05] MEDS ORDERED: SODIUM CHLORIDE 0.9% 1,000 ML IV STA (16:33)
[2021-02-05] MEDS ORDERED: METOCLOPRAMIDE 5 MG/ML 2 ML VIAL IVP STA (16:33)
--- NOTE | 2021-02-05 16:33 | ED ---
General Adult HPI - General Chief complaint: Neuro Symptoms/Deficit Stated complaint: Back/Neck Pain/Dizziness Time Seen by Provider: 02/05/21 15:33 Source: patient Mode of arrival: ambulatory Limitations: no limitations - History of Present Illness Initial comments: Caridad is a 60-year-old female who returns to the ER today for reevaluation of headache with associated blurred vision, double vision and left arm parasthesia. Patient was seen and evaluated for this last week at which time there is concerned she had a TIA. She was admitted to the hospital had a CAT scan blood work carotid Doppler and echo. She refused to do antiplatelet therapy and was discharged home on Crestor and aspirin. Patient had been doing well had not had any symptoms until today when she developed headache with blurred vision, she reports she has double vision in her right eye even when she closes her left eye. She also complains of recurrent paresthesias in her left arm. No weakness no facial droop today she has no word finding difficulty. He did take a Fioricet prior to arrival in the emergency department with no improvement in her symptoms. - Related Data Home Medications Medication Instructions Recorded Confirmed ALPRAZolam [Xanax] 1 mg PO TID PRN 03/24/14 02/05/21 PARoxetine HCL [Paxil] 40 mg PO DAILY 10/16/18 02/05/21 Butalb/APAP/Caff 50-325-40Mg 1 tab PO Q4H PRN 04/02/20 02/05/21 [Fioricet 50-325-40] Previous Rx's Medication Instructions Recorded Aspirin 81 mg PO DAILY #30 chew 02/01/21 Rosuvastatin Calcium [Crestor] 10 mg PO DAILY #30 tab 02/01/21 Allergies Allergy/AdvReac Type Severity Reaction Status Date / Time Tetanus Vaccines and Toxoid Allergy Swelling/Arm Verified 02/05/21 17:24 Pain Review of Systems ROS Statement: Those systems with pertinent positive or pertinent negative responses have been documented in the HPI. ROS Other: All systems not noted in ROS Statement are negative. Past Medical History Past Medical History: Pneumonia Additional Past Medical History / Comment(s): migraine headaches, hx. heart murmur, occ gastritits, hx colon polyp, slight elevated cholesterol, PRE CANCEROUS ADENOMA FOUND DURING COLONOSCOPY 06/10/19 History of Any Multi-Drug Resistant Organisms: MRSA Date of last positivie culture/infection: 2011 MDRO Source:: right axilla, neck Past Surgical History: Section Additional Past Surgical History / Comment(s): laparoscopy w/lysis of adhesions in October 2018, had robotic ventral hernia repair & lysis of adhesions in November 2018, COLONOSCOPY 06/10/19 Past Anesthesia/Blood Transfusion Reactions: No Reported Reaction Additional Past Anesthesia/Blood Transfusion Reaction / Comment(s): never had a blood transfusion Past Psychological History: Anxiety, Depression Smoking Status: Current every day smoker Past Alcohol Use History: Rare Past Drug Use History: None Reported - Past Family History Father Family Medical History: Cancer Additional Family Medical History / Comment(s): LUNG AND LIVER General Exam - General Exam Comments Initial Comments: Physical Exam GENERAL: Patient is well-developed and well-nourished. Patient is nontoxic and well-hydrated and is in no distress. HENT: Normocephalic, Atraumatic. EYES: PERRL, EOMI PULMONARY: Unlabored respirations. No audible rales rhonchi or wheezing was noted. CARDIOVASCULAR: There is a regular rate and rhythm without any murmurs gallops or rubs. ABDOMEN: Soft and nontender with normal bowel sounds. SKIN: Skin is clear with no lesions or rashes and otherwise unremarkable. : Deferred NEUROLOGIC: Patient is alert and oriented x3. Moving all extremities spontaneously Cranial nerves II through XII are grossly intact NIH is 0 Normal strength in bilateral upper and lower extremities MUSCULOSKELETAL: Normal extremities with adequate strength and full range of motion. No lower extremity swelling or edema. No calf tenderness. PSYCHIATRIC: Normal psychiatric evaluation. Limitations: no limitations Course Vital Signs 02/05/21 02/05/21 15:24 18:28 Temperature 97.4 F L Pulse Rate 67 62 Respiratory 16 18 Rate Blood Pressure 122/65 130/68 O2 Sat by Pulse 100 99 Oximetry Medical Decision Making - Medical Decision Making The patient was seen and evaluated, history was obtained from the patient Patient care was discussed with neurologist Dr. Polk who evaluated the patient last week, patient did not receive an MRI last week therefore he would recommend readmission for MRI Treat the patient's headache as this is possibly a complex migraine Patient care was discussed with [facility] physician Dr. Delaney who accepts - Lab Data Result diagrams: 02/05/21 16:55 02/05/21 16:55 Lab Results 02/05/21 02/05/21 02/05/21 Range/Units 16:55 16:55 17:35 WBC 5.7 (3.8-10.6) k/uL RBC 4.22 (3.80-5.40) m/uL Hgb 13.5 (11.4-16.0) gm/dL Hct 37.9 (34.0-46.0) % MCV 89.8 (80.0-100.0) fL MCH 31.9 (25.0-35.0) pg MCHC 35.6 (31.0-37.0) g/dL RDW 12.5 (11.5-15.5) % Plt Count 229 (150-450) k/uL MPV 7.0 Neutrophils % 58 % Lymphocytes % 33 % Monocytes % 6 % Eosinophils % 1 % Basophils % 1 % Neutrophils # 3.3 (1.3-7.7) k/uL Lymphocytes # 1.9 (1.0-4.8) k/uL Monocytes # 0.3 (0-1.0) k/uL Eosinophils # 0.1 (0-0.7) k/uL Basophils # 0.0 (0-0.2) k/uL Sodium 133 L (137-145) mmol/L Potassium 3.8 (3.5-5.1) mmol/L Chloride 100 (98-107) mmol/L Carbon Dioxide 24 (22-30) mmol/L Anion Gap 9 mmol/L BUN 8 (7-17) mg/dL Creatinine 0.55 (0.52-1.04) mg/dL Est GFR (CKD-EPI)AfAm >90 (>60 ml/min/1.73 sqM) Est GFR (CKD-EPI)NonAf >90 (>60 ml/min/1.73 sqM) Glucose 90 (74-99) mg/dL Calcium 8.9 (8.4-10.2) mg/dL Total Bilirubin 0.2 (0.2-1.3) mg/dL AST 21 (14-36) U/L ALT 13 (4-34) U/L Alkaline Phosphatase 89 (38-126) U/L Total Protein 6.8 (6.3-8.2) g/dL Albumin 4.2 (3.5-5.0) g/dL Coronavirus (PCR) Not Detected (Not Detectd) Disposition Clinical Impression: Vision changes, Headache, Arm paresthesia, left Disposition: ADMITTED IP TO THIS HOSP Condition: Stable Is patient prescribed a controlled substance at d/c from ED?: No
[2021-02-05 17:09] LABS: Basophils % (A) 1 %; Eosinophils # (A) 0.1 k/uL (0-0.7); Eosinophils % (A) 1 %; HCT 37.9 % (34.0-46.0); HGB 13.5 gm/dL (11.4-16.0); Lymphocytes # (A) 1.9 k/uL (1.0-4.8); Lymphocytes % (A) 33 %; MCH 31.9 pg (25.0-35.0); MCHC 35.6 g/dL (31.0-37.0); MCV 89.8 fL (80.0-100.0); Monocytes # (A) 0.3 k/uL (0-1.0); Monocytes % (A) 6 %; Neutrophils # (A) 3.3 k/uL (1.3-7.7); Neutrophils % (A) 58 %; Platelet Count 229 k/uL (150-450); RBC 4.22 m/uL (3.80-5.40); RDW 12.5 % (11.5-15.5); WBC 5.7 k/uL (3.8-10.6)
[2021-02-05 17:35] LABS: ALT 13 U/L (4-34); AST 21 U/L (14-36); African American GFR (CKD) >90 (>60 ml/min/1.73 sqM); Albumin 4.2 g/dL (3.5-5.0); Alkaline Phosphatase 89 U/L (38-126); Anion Gap 9 mmol/L; Blood Urea Nitrogen 8 mg/dL (7-17); Calcium 8.9 mg/dL (8.4-10.2); Carbon Dioxide 24 mmol/L (22-30); Chloride 100 mmol/L (98-107); Glucose 90 mg/dL (74-99); Non-African American GFR(CKD) >90 (>60 ml/min/1.73 sqM); Sodium 133 mmol/L (137-145); Total Bilirubin 0.2 mg/dL (0.2-1.3); Total Protein 6.8 g/dL (6.3-8.2)
[2021-02-05 17:36] LABS: Potassium 3.8 mmol/L (3.5-5.1)
[2021-02-05] MEDS ORDERED: BUTALB/APAP/CAFF 50-325-40MG TAB PO PRN (18:01)
[2021-02-05] MEDS ORDERED: ALPRAZolam 1 MG TAB PO PRN (18:01)
[2021-02-05] MEDS ORDERED: ONDANSETRON 4 MG/2 ML VIAL IVP PRN (18:06)
--- NOTE | 2021-02-05 18:06 | P.HPIM ---
History of Present Illness H&P Date: 02/05/21 Chief Complaint: Headache This is a 60-year-old female with past medical history noted below that presented to the emergency room with headache associated with blurred vision and left arm numbness. Patient said that her symptoms started suddenly at home and she took Fioricet with minimal relief of her headache. She said that that would vision lasted approximately an hour and a half. Patient was just discharged from the hospital recently when she had extensive workup including computed tomography scan of the brain, carotid Doppler, and echocardiogram that were mostly unremarkable. She was started on aspirin and Crestor and was discharged home. Patient said that she has chronic headache and she is not sure whether it's migraine on tension headache. She does not follow-up with the neurologist regularly. Upon arrival to the emergency room, patient was treated with Benadryl, Reglan, and Toradol. This aborted her headache episode. She denies any double vision at this time. No numbness anywhere in her body. She will be placed on observation to obtain MRI of the brain as recommended by neurology per ER staff discussion Review of Systems Review of system: 14 points review of systems were obtained and were negative except to what were mentioned in the HPI. Past Medical History Past Medical History: Pneumonia Additional Past Medical History / Comment(s): migraine headaches, hx. heart murmur, occ gastritits, hx colon polyp, slight elevated cholesterol, PRE CA NCEROUS ADENOMA FOUND DURING COLONOSCOPY 06/10/19 History of Any Multi-Drug Resistant Organisms: MRSA Date of last positivie culture/infection: 2011 MDRO Source:: right axilla, neck Past Surgical History: Section Additional Past Surgical History / Comment(s): laparoscopy w/lysis of adhesions in October 2018, had robotic ventral hernia repair & lysis of adhesions in November 2018, COLONOSCOPY 06/10/19 Past Anesthesia/Blood Transfusion Reactions: No Reported Reaction Additional Past Anesthesia/Blood Transfusion Reaction / Comment(s): never had a blood transfusion Past Psychological History: Anxiety, Depression Smoking Status: Current every day smoker Past Alcohol Use History: Rare Past Drug Use History: None Reported - Past Family History Father Family Medical History: Cancer Additional Family Medical History / Comment(s): LUNG AND LIVER Medications and Allergies Home Medications Medication Instructions Recorded Confirmed Type ALPRAZolam [Xanax] 1 mg PO TID PRN 03/24/14 02/05/21 History PARoxetine HCL [Paxil] 40 mg PO DAILY 10/16/18 02/05/21 History Butalb/APAP/Caff 50-325-40Mg 1 tab PO Q4H PRN 04/02/20 02/05/21 History [Fioricet 50-325-40] Aspirin 81 mg PO DAILY #30 chew 02/01/21 02/05/21 Rx Rosuvastatin Calcium [Crestor] 10 mg PO DAILY #30 tab 02/01/21 02/05/21 Rx Allergies Allergy/AdvReac Type Severity Reaction Status Date / Time Tetanus Vaccines and Toxoid Allergy Swelling/Arm Verified 02/05/21 17:24 Pain Physical Exam Vitals: Vital Signs Temp Pulse Resp BP Pulse Ox 02/05/21 15:24 97.4 F L 67 16 122/65 100 Intake and Output 02/05/21 02/05/21 02/05/21 06:59 14:59 22:59 Other: Weight 69.853 kg General: The patient is awake and alert, in no distress Eye: there is normal conjunctiva bilaterally. Neck: The neck is supple, there is no JVD. Cardiovascular: Normal S1-S2, no S3-S4, no murmurs. Respiratory: Lungs clear to auscultation bilaterally Gastrointestinal: Abdomen is soft, nontender Musculoskeletal: There is no pedal edema. Neurological:. Speech is normal. Skin: Skin is warm and dry Results CBC & Chem 7: 02/05/21 16:55 02/05/21 16:55 Labs: Abnormal Lab Results - Last 24 Hours (Table) 02/05/21 Range/Units 16:55 Sodium 133 L (137-145) mmol/L Assessment and Plan Assessment: 1. Migraine headache attack: Resolved. Continue Fioricet as needed. Neurology consult and MRI of the brain in the morning. 2. Recent hospitalization with suspected TIA, maintained on aspirin and cholesterol 3. Chronic medical problems: Generalized anxiety and panic disorder: Continue home regimen 4. DVT prophylaxis with subcu Lovenox
[2021-02-05] MEDS ORDERED: NALOXONE 0.4 MG/ML 1 ML VIAL IV PRN (19:16)
[2021-02-06] MEDS ORDERED: ASPIRIN 81 MG PO SCH (09:00)
[2021-02-06] MEDS ORDERED: PARoxetine 20 MG TAB PO SCH (09:00)
[2021-02-06] MEDS ORDERED: ATORVASTATIN 20 MG TAB PO SCH (09:00)
[2021-02-06] MEDS ORDERED: ENOXAPARIN 40 MG/0.4 ML SYRINGE SQ SCH (09:00)
--- NOTE | 2021-02-06 11:02 | P.CNNES ---
History of Present Illness Consult date: 02/06/21 Requesting physician: Marco Delaney Reason for Consult: migraine headaches History of Present Illness: This is a 60-year-old woman with medical history of likely a TIA on , cephalgia (seem more tension), anxiety/panic disorder who presented emergency department on 02/05/2021 with a headache, blurred vision and left arm numbness. Patient stated that yesterday she had a headache over the bilateral frontal re gion as well as the occipital neck region that started about 12:30pm, felt like a hurting pain, was 7/10, denies any radiation. She denies any photophobia or phonophobia. [place] nauseous but denies any vomiting. Then around 1:30 PM in the afternoon she noticed that the she is having double vision of both eyes and was [id number] then she noticed that that she's having tingling and needle sensati on over the left upper extremity and her legs are weak. Because she was concerned that this was a stroke she decided to come to the hospital. Her vision episode lasted about an hour and a half. She is taking Fioricet at home but did not feel relief of the headache. He said she has a daily headache every day and denies any having those symptoms associate with her headaches. Also with her headaches she does not have any occipital or neck Pain associate with it. Her headaches last for an hour to a few hours. Denies that she needs to be in a dark quiet place. She takes Fiorcet as needed for the headaches. In the past she said that she was on Topamax 25 mg not sure if she was taken one tablet or 2 tablets a day but felt was not helping but denies having any side effects and that was years ago she stated that. She said the Fioricet the which he takes sometimes "jumbled sometime. Currently her symptoms have resolved. She is in the process of seeing a neurologist as an outpatient and being referred to a neurologist by her primary team. Of note I personally saw the patient on 02/01/2021 and that she complained of an episode of blurry vision, vertigo, left arm paresthesia and word finding difficulty and I seemed likely was a transient ischemic attack. I felt her headache were more tension headache. Negative CT scan of the brain. There is clearing of the left medullary sinusitis compared to old exam. Her most current TSH is 2.53 which is considered normal. Lipid panel: Triglyceride 179, cholesterol 185, LDL is 118 and HDL 31. 2-D echo is reported as wall thickness and systolic function are normal. Ejection fraction greater than 55%. Left ventricle size is normal. Normal left atrial size. Negative PFO. MRI of the brain was not done as since the patient had no focal deficit was back to baseline. She was only on aspirin and 50 to be on dual antiplatelets and to continue Lipitor 40 mg daily. She was discharged home since did not want to remain in the hospital and was back to baseline. On presentation the hospital her initial vital signs of blood pressure of 122/65, heart rate is 67, respiratory of 16, temperature of 97.4 Fahrenheit oral and pulse ox of 1% room air. CBC with differential is unremarkable. Chemistry panel the sodium is 133 which is mildly low otherwise the the chemistry panel is unremarkable Of note in the emergency department she was given a migraine cocktail dose of Benadryl, Reglan and Toradol and the headache was aborted. Review of Systems Review of system: The 12 point system was reviewed and apparent positive and negative per HPI. Past Medical History Past Medical History: Pneumonia Additional Past Medical History / Comment(s): migraine headaches, hx. heart murmur, occ gastritits, hx colon polyp, slight elevated cholesterol, PRE CANCEROUS ADENOMA FOUND DURING COLONOSCOPY 06/10/19 History of Any Multi-Drug Resistant Organisms: MRSA Date of last positivie culture/infection: 2011 MDRO Source:: right axilla, neck Past Surgical History: Section Additional Past Surgical History / Comment(s): laparoscopy w/lysis of adhesions in October 2018, had robotic ventral hernia repair & lysis of adhesions in November 2018, COLONOSCOPY 06/10/19 Past Anesthesia/Blood Transfusion Reactions: No Reported Reaction Additional Past Anesthesia/Blood Transfusion Reaction / Comment(s): never had a blood transfusion Past Psychological History: Anxiety, Depression Smoking Status: Current every day smoker Past Alcohol Use History: Rare Past Drug Use History: None Reported - Past Family History Father Family Medical History: Cancer Additional Family Medical History / Comment(s): LUNG AND LIVER Medications and Allergies Home Medications Medication Instructions Recorded Confirmed Type ALPRAZolam [Xanax] 1 mg PO TID PRN 03/24/14 02/05/21 History PARoxetine HCL [Paxil] 40 mg PO DAILY 10/16/18 02/05/21 History Butalb/APAP/Caff 50-325-40Mg 1 tab PO Q4H PRN 04/02/20 02/05/21 History [Fioricet 50-325-40] Aspirin 81 mg PO DAILY #30 chew 02/01/21 02/05/21 Rx Rosuvastatin Calcium [Crestor] 10 mg PO DAILY #30 tab 02/01/21 02/05/21 Rx Topiramate [Topamax] 25 mg PO BID #60 tab 02/06/21 Rx Allergies Allergy/AdvReac Type Severity Reaction Status Date / Time Tetanus Vaccines and Toxoid Allergy Swelling/Arm Verified 02/05/21 17:24 Pain Physical Examination - Vital Signs Vital Signs: Vital Signs Temp Pulse Pulse Resp BP BP BP 02/06/21 07:00 97.6 F 63 19 116/61 02/06/21 02:00 97.5 F L 57 L 18 107/71 02/05/21 21:17 98.0 F 62 18 107/64 02/05/21 18:28 62 18 130/68 02/05/21 15:24 97.4 F L 67 16 122/65 Pulse Ox 02/06/21 07:00 98 02/06/21 02:00 96 02/05/21 21:17 100 02/05/21 18:28 99 02/05/21 15:24 100 Intake and Output 02/05/21 02/06/21 02/06/21 22:59 06:59 14:59 Intake Total 450 240 Balance 450 240 Intake: Oral 450 240 Other: Voiding Method Toilet Toilet # Voids 1 3 Weight 69.853 kg GENERAL: The patient is lying in bed and is not in acute distress. CHEST: The heart rate is regular rate rhythm. No murmurs to auscultation. No carotid bruit bilaterally. LUNG: Clear to auscultation bilaterally no wheezing noted throughout. Not labored breathing. ABDOMEN/GI: Bowel sounds present in all 4 quadrants. No tenderness to palpation throughout. NEUROLOGICAL: Higher mental function: The patient is awake, alert, oriented to self, place and time. Patient is following commands. No aphasia and no neglect. Cranial nerves: The pupils are round, equal and reactive to light and accommodation. Visual gomes are full to confrontation throughout. Extraocular movement is intact no nystagmus is noted. Facial sensation is normal to touch throughout. The facial strength is normal throughout. Hearing is normal b ilaterally to hand rub. Tongue is midline and moved [id number] without any difficulty. No dysarthria is noted. Shoulder shrug is normal bilaterally. Motor: Gait is normal with normal arm swings. The strength is 5 over 5 throughout. Normal tone and bulk. Cerebellum: Normal finger to nose heel to wells bilaterally. Sensation: Sensation is normal to touch throughout. Reflexes (right/left): 2+ throughout. Plantars are downgoing bilaterally. Results - Laboratory Findings CBC and BMP: 02/05/21 16:55 02/05/21 16:55 Abnormal Lab Findings: Abnormal Labs 02/05/21 16:55 Sodium 133 L Assessment and Plan Assessment: * Transient Episode of diplopia of both eyes, paresthesia of left upper extremity and bilateral lower extremity weakness. Possibly Atypical complicated migraine (seems atypical since never has associated symptoms with these episode. Has chronic headaches but in the past one week he two of these episodes with others neurological symptoms.). Cannot rule out TIA or even seizure. * Anxiety/panic disorder * Nicotine dependence Plan: * MRI the brain is ordered by the primary team is pending. * I started the patient on Topamax 25mg 1 tab bid for headache prophylaxis. The patient was notified if she continues to have the further episodes to go up to 2 tablets twice a day. I notified her that Topamax can help with headache and has antiepileptic protection effect. Also notified her of the the side effects of Topamax. * I notified her that would like to get a routine EEG but she stated that her symptoms has resolved and she needs to care of her kids. I wrote a prescription for 2 1/2 hourS prolonged EEG as an outpatient. * Continue aspirin 81 mg and Lipitor 20 mg for secondary stroke prophylaxis. She'll also hold off on dual antiplatelets for now. * We'll defer the rest of the medical management to the primary team. * Upon discharge the patient needs to follow-up with a neurologist within 1-2 weeks as an outpatient. UPDATE: MR the brain is reported as no acute intracranial process. Degenerative and nonspecific white matter changes most typical remote white matter ischemia. Area of abnormal signal involving the rossana most typical of remote ischemia. Chronic sinusitis. There is no further work-up. The plan was discussed with the primary team and her nurse Thank you for the consultation. Cristian Polk M.D. Neuro-hospitalist Time with Patient: Greater than 30
[2021-02-06] MEDS ORDERED: TOPIRAMATE 25 MG TAB PO SCH (11:45)
[2021-02-06 14:40] VITALS: BP 113/69; PULSE 62; RESP 18; TEMP 97.3
--- NOTE | 2021-02-06 16:02 | MR ---
EXAMINATION TYPE: MR brain wo con DATE OF EXAM: 02/06/2021 COMPARISON: 01/31/2021 HISTORY: Double vision, headache, numbness of the arm TECHNIQUE: T1-weighted sagittal, T2, FLAIR, and diffusion axial, and T2 coronal coronal views of the brain are submitted. FINDINGS: There is no evidence of acute ischemia. The ventricles, basal cisterns, and sulci overlying the conv exities are consistent with the patient's age. There is no mass effect. Low-attenuation the basal ganglia suggestive of remote ischemic change multiple focal areas of nonspe cific white matter changes are seen scattered bilaterally. The globes are symmetric and there are changes of mild chronic sinusitis. Craniocervical junction phillip ntained and sella turcica has normal limits. No cerebellopontine angle mass. IMPRESSION: 1. No acute intracranial process 2. Degenerative and nonspecific white matter changes most typical of remote white matter ischemia. Ar eas of abnormal signal involving the rossana most typical of remote ischemia. 3. Chronic sinusitis.
--- NOTE | 2021-02-06 16:44 | P.DS ---
Providers Date of admission: 02/05/21 19:17 Expected date of discharge: 02/06/21 Attending physician: Marco Delaney Consults: 02/05/21 18:02 Consult Physician Routine Consulting Provider: Cristian Polk Consult Reason/Comments: Migraine headache Do you want consulting provider notified?: Yes Primary care physician: [facility] Course: This is a 60-year-old female with past medical history noted below that presented to the emergency room with headache, double vision, and numbness in her arm. Patient was treated in the ER with a migraine headache with resolution of her symptoms. Patient was placed on observation for further management of her medical problems noted below. 1. A typical Migraine headache attack: Resolved. Continue Fioricet as needed. Neurology consulted and MRI of the brain showed no acute findings. There was evidence of any of her mode ischemia. Patient was started on Topamax twice daily. Plan to follow up with neurology outpatient. 2. Recent hospitalization with suspected TIA, maintained on aspirin and Crestor 3. Chronic medical problems: Generalized anxiety and panic disorder: Continue home regimen Patient will be discharged home in a stable condition. For further details about this hospitalization please refer to the electronic chart. Time spent on discharge > 30 minutes including counseling and coordination of care Patient Condition at Discharge: Stable Plan - Discharge Summary Discharge Rx Participant: Yes New Discharge Prescriptions: New Topiramate [Topamax] 25 mg PO BID #60 tab Continue ALPRAZolam [Xanax] 1 mg PO TID PRN PRN Reason: Anxiety PARoxetine HCL [Paxil] 40 mg PO DAILY Butalb/APAP/Caff 50-325-40Mg [Fioricet 50-325-40] 1 tab PO Q4H PRN PRN Reason: Migraine Headache Aspirin 81 mg PO DAILY #30 chew Rosuvastatin Calcium [Crestor] 10 mg PO DAILY #30 tab Discharge Medication List ALPRAZolam [Xanax] 1 mg PO TID PRN 03/24/14 [History] PARoxetine HCL [Paxil] 40 mg PO DAILY 10/16/18 [History] Butalb/APAP/Caff 50-325-40Mg [Fioricet 50-325-40] 1 tab PO Q4H PRN 04/02/20 [History] Aspirin 81 mg PO DAILY #30 chew 02/01/21 [Rx] Rosuvastatin Calcium [Crestor] 10 mg PO DAILY #30 tab 02/01/21 [Rx] Topiramate [Topamax] 25 mg PO BID #60 tab 02/06/21 [Rx] Follow up Appointment(s)/Referral(s): Chavo Fofana MD [Primary Care Provider] - 1-2 days Discharge Disposition: HOME SELF-CARE
== END 2021-02-06 17:17 | disposition home or self-care (01) ==
LOC: EC 15:03 → 6NMEDSUR 19:17
PROVIDERS: ADMIT Internal Medicine; ATTEND Internal Medicine
DX: G43.909 Migraine, unspecified, not intractable, without status migrainosus (principal); F41.1 Generalized anxiety disorder; F41.0 Panic disorder [episodic paroxysmal anxiety]; J32.9 Chronic sinusitis, unspecified; E78.00 Pure hypercholesterolemia, unspecified; F32.9 Major depressive disorder, single episode, unspecified; F17.200 Nicotine dependence, unspecified, uncomplicated; Z20.822 Contact with and (suspected) exposure to COVID-19; Z79.82 Long term (current) use of aspirin; Z79.899 Other long term (current) drug therapy; Z88.7 Allergy status to serum and vaccine; Z87.01 Personal history of pneumonia (recurrent); Z86.010 Personal history of colon polyps; Z86.14 Personal history of Methicillin resistant Staphylococcus aureus infection; Z98.891 History of uterine scar from previous surgery; Z98.890 Other specified postprocedural states; Z80.0 Family history of malignant neoplasm of digestive organs; Z80.1 Family history of malignant neoplasm of trachea, bronchus and lung
CPT/HCPCS: 96361 ×3; 96374; 96375; 99285; 36415; 80053; 85025; 87635; 70551; G0378 ×2; J1200; J2765; J1885

== ENCOUNTER → 2021-02-17 | Outpatient (CLI) | payer MEDICAID ==
--- NOTE | 2021-02-19 18:27 | EEG ---
ELECTROENCEPHALOGRAM REPORT DATE OF PROCEDURE: 02/17/2021. HEADING: Electroencephalogram (EEG) report. TECHNIQUE: This is a report from a 2.5 hour outpatient digital video EEG performed using the 10/20 electrode placement system. HISTORY: Syncopal episode. CURRENT MEDICATIONS: Aspirin, Fioricet, Xanax, Paxil. FINDING: Recording start time: 02/17/2021 at 7:18 am. Recording end time: 02/17/2021 at 10:15 am. EVENTS: During this 2.5 hour outpatient digital EEG recording, no clinical or electrographic seizures have been recorded. BACKGROUND: The background activity consists of 9-10 hertz rhythmic waveforms symmetric through both posterior quadrants. ACTIVATION: Hyperventilation: Not performed. Photic stimulation: Symmetric driving seen. Sleep: Stages 1 and 2 of sleep noted. ABNORMALITIES: None. Please note that 1 channel of this EEG was dedicated to EKG. It demonstrated a sinus rhythm. IMPRESSION: Normal 2 0.5 hour video EEG. No clinical or electrographic seizures were recorded. No epileptiform activity was present. MMODL / IJN: [id number] /
--- NOTE | 2021-02-19 18:31 | EEG ---
ELECTROENCEPHALOGRAM REPORT [facility] / IJN: [id number] /
== END ==
LOC: NEUROMAIN 07:03
PROVIDERS: ATTEND Student in an Organized Health Care Education/Training Program
DX: R56.9 Unspecified convulsions (principal); F17.200 Nicotine dependence, unspecified, uncomplicated; Z88.7 Allergy status to serum and vaccine
CPT/HCPCS: 95713

== ENCOUNTER → 2021-03-20 | Outpatient (CLI) | payer MEDICAID ==
--- NOTE | 2021-03-20 10:51 | MR ---
EXAMINATION TYPE: MR brain wo/w con DATE OF EXAM: 03/20/2021 COMPARISON: 02/06/2021 HISTORY: Parathesias,speech difficulty episodes, Epilepsy protocol TECHNIQUE: Multiplanar, multisequence images of the brain and brainstem is performed without and with IV contras t, utilizing 7 mL intravenous Gadavist . FINDINGS: There is no evidence of acute ischemia. The ventricles, basal cisterns, and sulci overlying the conve xities are consistent with the patient's age. There is no mass effect. Low-attenuation the basal ganglia suggestive of remote ischemic change multiple focal areas of nonspe cific white matter changes are seen scattered bilaterally. Faint areas of abnormal signal involving t he rossana The globes are symmetric and there are changes of mild chronic sinusitis. Craniocervical junction phillip ntained and sella turcica has normal limits. No cerebellopontine angle mass. There is an area of low signal within the pituitary gland measuring 3 mm IMPRESSION: 1. Correlate for pituitary microadenoma. 2. Nonspecific white matter changes most typical remote ischemia. Demyelinating disease not entirely excluded correlate clinically. Evidence of remote ischemia involving the rossana appears stable.
== END | disposition home or self-care (01) ==
LOC: RADMRIMAIN 09:01
PROVIDERS: ATTEND Psychiatry & Neurology Neurology
DX: R93.0 Abnormal findings on diagnostic imaging of skull and head, not elsewhere classified (principal)
CPT/HCPCS: 70553; A9585

== ENCOUNTER → 2021-05-05 | Outpatient (CLI) | payer MEDICAID, OTHER ==
--- NOTE | 2021-05-06 07:00 | MR ---
EXAMINATION TYPE: MR brain wo/w con DATE OF EXAM: 05/05/2021 10:57 PM COMPARISON: 03/20/2021 HISTORY: Seizure, ringing in ears, episodes of loss of vision/ leg numbness, attention to pituitary. CONTRAST: Patient received 7 mL intravenous Gadavist gadolinium contrast. Multiplanar and multispin-echo imaging of the brain was performed . Pre and post contrast enhanced i mages are obtained. The ventricles, basal cisterns and sulci overlying the cerebral convexities are mildly enlarged. There is evidence of mild periventricular white matter ischemic demyelination. Remote deep white matter insults are also noted. No acute edema is seen on diffusion weighted imaging. There is no evidence for midline shift or mass effect. Acute intracranial hemorrhage or extra-axial collection is not evident. No enhancing lesions are seen. Suspect small right pituitary microadenoma measuring several millimet ers. Improved characterization can be obtained with dedicated MRI of the pituitary gland. The paranasal sinuses and mastoid air cells are well-aerated. IMPRESSION: Age-related atrophic and chronic small vessel ischemic change. No acute intracranial process at this time. No enhancing lesions are seen. Probable pituitary microadenoma. See above.
== END | disposition home or self-care (01) ==
LOC: RADMRIMAIN 21:08
PROVIDERS: ATTEND Psychiatry & Neurology Neurology
DX: I67.82 Cerebral ischemia (principal)
CPT/HCPCS: 70553; A9585

== ENCOUNTER → 2021-05-10 | Outpatient (CLI) | payer MEDICAID ==
--- NOTE | 2021-05-11 05:16 | MR ---
EXAMINATION TYPE: MR pituitary wo/w con DATE OF EXAM: 05/10/2021 COMPARISON: 05/05/2021 HISTORY: Seizure/ epilepsy, call back for attention to pituitary. CONTRAST: Standard multiplanar, multisequence MRI departmental protocol utilizing 7 mL intravenous Gadavist dany olinium contrast. Exam performed without and with IV contrast. There is normal size pituitary gland. Pituitary stalk is in the midline. Optic chiasm appears normal. There is no evidence of enlargement of the pituitary gland. There is a 2 mm rounded area of decrease d enhancement in the inferior right side of the pituitary gland. This could be a macroadenoma. This a ppears not changed compared to the recent exam of 05/05/2021. There is normal concave superior border of the pituitary gland. There is normal flow-void in the internal carotid arteries. IMPRESSION: Nonenhancing tiny focus in the inferior pituitary gland on the right side consistent with microadenom a.
== END | disposition home or self-care (01) ==
LOC: RADMRIMAIN 20:44
PROVIDERS: ATTEND Psychiatry & Neurology Neurology
DX: R93.0 Abnormal findings on diagnostic imaging of skull and head, not elsewhere classified (principal)
CPT/HCPCS: 70553; A9585

== ENCOUNTER 2021-08-09 08:28 | Day surgery (SDC) | payer MEDICAID ==
[2021-08-07 10:17] VITALS: BMI 25.7
[~2021-08-09 08:28] MED LIST changes: +LIDOCAINE 1% (10MG/ML) FOR IV START INTRADERMA PRN; -LIDOCAINE 1% 20 ML VIAL (10MG/ML) FOR IV START INTRADERMA PRN
[2021-08-09] MEDS ORDERED: ONDANSETRON 4 MG/2 ML VIAL ONE (08:57)
[2021-08-09] MEDS ORDERED: ONDANSETRON 4 MG/2 ML VIAL IVP ONE (09:05)
[2021-08-09 09:15] VITALS: RESP 16; TEMP 97.6
[2021-08-09] MEDS ORDERED: LIDOCAINE 1% INJ 10MG/ML (20 ML MDV) ONE (09:20)
[2021-08-09] MEDS ORDERED: PROPOFOL 10 MG/ML 20 ML VIAL IV ONE (09:20)
[2021-08-09] MEDS ORDERED: IV FLUID CONTINUATION 1,000 ML IV ONE (09:43)
--- NOTE | 2021-08-09 09:47 | P.GSHP ---
History of Present Illness H&P Date: 08/09/21 CHIEF COMPLAINT: Colon screen HISTORY OF PRESENT ILLNESS: The patient is a 61-year-old female who presents for colon screen. Lower endoscopy was offered for further evaluation and management. PAST MEDICAL HISTORY: Please see list. PAST SURGICAL HISTORY: Please see list. MEDICATIONS: Please see list. ALLERGIES: Please see list. SOCIAL HISTORY: No illicit drug use FAMILY HISTORY: No reports of Crohn disease or ulcerative colitis. REVIEW OF ORGAN SYSTEMS: CONSTITUTIONAL: No reports of fevers or chills. PHYSICAL EXAM: VITAL SIGNS: Stable GENERAL: Well-developed pleasant in no acute distress. HEENT: No scleral icterus. Extraocular movements grossly intact. Moist buccal mucosa. NECK: Supple without lymphadenopathy. CHEST: Unlabored respirations. Equal bilateral excursions. CARDIOVASCULAR: Regular rate and rhythm. Distal 2+ pulses. ABDOMEN: Soft, nontender, nondistended. MUSCULOSKELETAL: No clubbing, cyanosis, or edema. ASSESSMENT: 1. Colon screen. PLAN: 1. Recommend proceeding with a lower endoscopy Past Medical History Past Medical History: Pneumonia Additional Past Medical History / Comment(s): migraine headaches, hx. heart murmur, occ gastritits, hx colon polyp, slight elevated cholesterol, PRE CANCEROUS ADENOMA FOUND DURING COLONOSCOPY 06/10/19 History of Any Multi-Drug Resistant Organisms: MRSA Date of last positivie culture/infection: 2011 MDRO Source:: right axilla, neck Past Surgical History: Section, Hernia Repair Additional Past Surgical History / Comment(s): laparoscopy w/lysis of adhesions in October 2018, had robotic ventral hernia repair & lysis of adhesions in November 2018, COLONOSCOPY 06/10/19 Past Anesthesia/Blood Transfusion Reactions: No Reported Reaction Additional Past Anesthesia/Blood Transfusion Reaction / Comment(s): never had a blood transfusion Smoking Status: Current every day smoker - Past Family History Father Family Medical History: Cancer Additional Family Medical History / Comment(s): LUNG AND LIVER Medications and Allergies Home Medications Medication Instructions Recorded Confirmed Type ALPRAZolam [Xanax] 1 mg PO TID PRN 03/24/14 08/07/21 History PARoxetine HCL [Paxil] 40 mg PO DAILY 10/16/18 08/07/21 History Butalb/APAP/Caff 50-325-40Mg 1 tab PO Q4H PRN 04/02/20 08/07/21 History [Fioricet 50-325-40] Aspirin 81 mg PO DAILY #30 chew 02/01/21 08/07/21 Rx Allergies Allergy/AdvReac Type Severity Reaction Status Date / Time Tetanus Vaccines and Toxoid Allergy Swelling/Arm Verified 08/09/21 08:49 Pain Surgical - Exam Vital Signs Temp Pulse Resp BP Pulse Ox 97.6 F 73 16 131/62 97 08/09/21 08:55 08/09/21 08:55 08/09/21 08:55 08/09/21 08:55 08/09/21 08:55
--- NOTE | 2021-08-09 09:52 | P.PCN ---
Date of Procedure: 08/09/21 Description of Procedure: PREOPERATIVE DIAGNOSIS: Personal history of colon polyps Colonoscopy screening POSTOPERATIVE DIAGNOSIS: Personal history of colon polyps Colonoscopy screening Tubular adenoma sigmoid colon Sigmoid diverticulosis Internal/external hemorrhoids, grade 3 OPERATION: Colonoscopy to the ileocecal valve and appendiceal orifice, cecum Colonoscopy with hot snare polypectomy SURGEON: Ilana Jiang MD. ANESTHESIA: MAC. INDICATIONS: The patient is an 65-year-old male who presents family history of malignant colon polyps and personal history of colon polyps. Last colonoscopy 5 years. Benefits and risks were described and informed consent was obtained. DESCRIPTION OF PROCEDURE: The patient had undergone Sutab prep. The patient had been brought into the operating room and laid in the left lateral decubitus position. After adequate intravenous sedation, the rectum was examined with 2% lidocaine jelly. The prostate was unremarkable. External hemorrhoids were encountered. The rectal tone was within normal limits. No lesions were palpated in the rectal vault. An Olympus colonoscope was advanced until the cecum, ileocecal valve and appendiceal orifice were clearly viewed. The prep was excellent. Sigmoid diverticulosis was encountered. Colonic polyps were found and removed. No evidence of focal colitis was found. Retroflexion of the scope demonstrated grade 3 internal hemorrhoids without active bleeding or inflammation. The colon was desufflated. The patient had tolerated the procedure well. Withdrawal time was over 6 minutes. FINDINGS: Aronchick preparation quality scale 1 (1-5) Internal hemorrhoids, grade 3 External hemorrhoids, grade 3. No arteriovenous malformations. Sigmoid diverticulosis Removal of 1 polyps: - Snare polypectomy 15 cm from the anal verge, 5 mm tubulovillous adenoma polyp. No focal colitis. RECOMMENDATIONS: Repeat colonoscopy 3 years, 2023 Plan - Discharge Summary Discharge Rx Participant: No New Discharge Prescriptions: Continue ALPRAZolam [Xanax] 1 mg PO TID PRN PRN Reason: Anxiety PARoxetine HCL [Paxil] 40 mg PO DAILY Butalb/APAP/Caff 50-325-40Mg [Fioricet 50-325-40] 1 tab PO Q4H PRN PRN Reason: Migraine Headache Aspirin 81 mg PO DAILY #30 chew Discharge Medication List ALPRAZolam [Xanax] 1 mg PO TID PRN 03/24/14 [History] PARoxetine HCL [Paxil] 40 mg PO DAILY 10/16/18 [History] Butalb/APAP/Caff 50-325-40Mg [Fioricet 50-325-40] 1 tab PO Q4H PRN 04/02/20 [History] Aspirin 81 mg PO DAILY #30 chew 02/01/21 [Rx] Follow up Appointment(s)/Referral(s): Ilana Jiang MD [STAFF PHYSICIAN] - As Needed Patient Instructions/Handouts: Diverticulosis (DC), Colorectal Polyps (DC), Diverticulosis Diet (GEN) Activity/Diet/Wound Care/Special Instructions: Repeat colonoscopy 3 years, 2023 Discharge Disposition: HOME SELF-CARE
[2021-08-09 10:05] VITALS: BP 122/74; PULSE 57
== END 2021-08-09 10:23 | disposition home or self-care (01) ==
LOC: ORWHC2ENDO 08:28
PROVIDERS: ATTEND Surgery Plastic and Reconstructive Surgery
DX: Z12.11 Encounter for screening for malignant neoplasm of colon (principal); D12.6 Benign neoplasm of colon, unspecified; Z86.010 Personal history of colon polyps; K64.8 Other hemorrhoids; K64.4 Residual hemorrhoidal skin tags
CPT/HCPCS: 45385; J2405; J2001; J2704; 88305

== ENCOUNTER → 2022-09-12 | Outpatient (CLI) | payer OTHER ==
[2022-09-12 14:26] LABS: Basophils # (A) 0.05 X 10*3/uL (0.00-0.10); Basophils % (A) 1.1 %; Eosinophils # (A) 0.03 X 10*3/uL (0.04-0.35); Eosinophils % (A) 0.7 %; HCT 43.4 % (37.2-46.3); HGB 14.5 g/dL (12.0-15.0); Immature Grans, Automated 0.2 %; Lymphocytes # (A) 1.45 X 10*3/uL (0.90-5.00); Lymphocytes % (A) 32.3 %; MCHC 33.4 g/dL (32.0-37.0); MCV 92.7 fL (80.0-97.0); Mean Platelet Volume 9.8 fL (9.5-12.2); Monocytes # (A) 0.31 X 10*3/uL (0.20-1.00); Monocytes % (A) 6.9 %; NRBC Per 100 WBC 0 /100 WBCS (0.0-0.0); Neutrophils # (A) 2.64 X 10*3/uL (1.80-7.70); Neutrophils % (A) 58.8 %; Platelet Count 301 X 10*3/uL (140-440); RBC 4.68 X 10*6/uL (4.10-5.20); RDW 13.4 % (11.5-14.5); WBC 4.49 X 10*3/uL (4.50-10.00)
[2022-09-12 16:21] LABS: Lipase 23 U/L (14-63)
[2022-09-12 16:23] LABS: % Iron Saturation 18.83 (12.00-45.00); ALT 15 U/L (8-44); AST 16 U/L (13-35); African American GFR (CKD) 107.6 (60.0-200.0); Albumin 4.8 g/dL (3.8-4.9); Albumin/Globulin Ratio 1.85 (1.60-3.17); Alkaline Phosphatase 94 U/L (41-126); Amylase 60 U/L (23-121); BUN/Creat Ratio 15.14 Ratio (12.00-20.00); Blood Urea Nitrogen 10.6 mg/dL (9.0-27.0); Calcium 10.2 mg/dL (8.7-10.3); Carbon Dioxide 28.3 mmol/L (20.0-27.5); Chloride 103 mmol/L (96-109); Chol/HDL Ratio 5.11 Ratio; Globulin 2.6 g/dL (1.6-3.3); Glucose 102 mg/dL (70-110); Iron 62 ug/dL (50-170); LDL Cholesterol,Calculated 152.4 mg/dL (0.0-131.0); Non-African American GFR(CKD) 92.9 (60.0-200.0); Sodium 141 mmol/L (135-145); Total Bilirubin <0.15 mg/dL (0.30-1.20); Total Iron Binding Capacity 328 ug/dL (228-460); Total Protein 7.4 g/dL (6.2-8.2)
== END | disposition home or self-care (01) ==
LOC: LABWHC1 10:28
PROVIDERS: ATTEND Nurse Practitioner Adult Health
DX: Z00.00 Encounter for general adult medical examination without abnormal findings (principal); R42 Dizziness and giddiness; R63.4 Abnormal weight loss
CPT/HCPCS: 36415; 80053; 80061; 82150; 82607; 82728; 82746; 83036; 83540; 83550; 83690; 84439; 84443; 84480; 85025

== ENCOUNTER 2022-11-14 08:13 | Day surgery (SDC) | payer OTHER ==
[2022-11-09 12:04] VITALS: BMI 22.6
[2022-11-14 08:31] VITALS: TEMP 97.4
[2022-11-14] MEDS ORDERED: LIDOCAINE 2% INJ 20 MG/ML (2 ML VIAL) ONE (09:17)
[2022-11-14] MEDS ORDERED: PROPOFOL 10 MG/ML 20 ML VIAL IV ONE (09:17)
--- NOTE | 2022-11-14 09:36 | P.PCN ---
Date of Procedure: 11/14/22 Procedure(s) Performed: Brief history: Patient is a pleasant 63-year-old white female scheduled for an elective upper endoscopy as well as colonoscopy as a part of evaluation of GERD/prior history of colon polyps. She had recent weight loss of almost 25 pounds in the last 1 year. Procedure performed: Esophagogastroduodenoscopy with biopsy. Colonoscopy Preoperative diagnosis: GERD/progressive weight loss History of colon polyps Anesthesia: [facility] [place] Procedure: After informed consent was obtained from the patient was brought into the endoscopy unit and IV sedation was administered by anesthesia under continuous monitoring. Initially upper endoscopy was done. The Olympus GF 160 video endoscope was inserted inserted into the mouth and esophagus intubated without any difficulty and was gradually advanced into the stomach and duodenum and carefully examined. The bulb and second part of the duodenum appeared normal. Biopsies were done from the duodenum to rule out celiac disease. The scope was then withdrawn into the stomach adequately insufflated with air and upon careful examination the antrum had mild antral gastritis and biopsies were done from this area. Mucosa of the body, cardia and fundus appeared normal. The scope was then withdrawn into the esophagus. The GE junction was located at 40 cm to the incisors. It appeared regular with no erythema erosions or ulcerations. Rest of the esophagus appeared normal. Patient tolerated the procedure well. At this time the patient continued to remain sedation. Initial digital rectal examination was normal. Olympus CF 160 video colonoscope was then inserted into the rectum and gradually advanced to the cecum without any difficulty. Careful examination was performed as the scope was gradually being withdrawn. The prep was excellent. The cecum, ascending colon, transverse colon, descending colon, sigmoid colon and rectum appeared normal. Retroflexion was performed in the rectum and no lesions were noted. Patient tolerated the procedure well. Impression: 1. Upper endoscopy revealed minimal antral gastritis but no evidence of esophagitis or peptic ulcer disease 2. Colonoscopy was within normal limits with no evidence of colorectal neoplasia Recommendations: Findings of this examination were discussed with the patient as well as a family. She was advised to follow with the biopsy result. Recommend repeat screening colonoscopy in 10 years.
[2022-11-14 09:43] VITALS: RESP 16
[2022-11-14 09:58] VITALS: BP 118/77; PULSE 69
== END 2022-11-14 10:17 | disposition home or self-care (01) ==
LOC: ORWHC2ENDO 08:13
PROVIDERS: ATTEND Internal Medicine Gastroenterology
DX: Z12.11 Encounter for screening for malignant neoplasm of colon (principal); K29.70 Gastritis, unspecified, without bleeding; F41.8 Other specified anxiety disorders; G43.909 Migraine, unspecified, not intractable, without status migrainosus; F17.200 Nicotine dependence, unspecified, uncomplicated; Z79.899 Other long term (current) drug therapy; Z88.7 Allergy status to serum and vaccine; Z86.010 Personal history of colon polyps
CPT/HCPCS: 88305; 43239; J2704; J2001; G0105; 45378

== ENCOUNTER 2023-02-13 13:48 | Observation (INO) | payer OTHER ==
--- NOTE | 2023-02-13 14:40 | ED ---
Abdominal Pain HPI - General Source: patient, RN notes reviewed Mode of arrival: ambulatory Limitations: no limitations <Morgan Gaitan - Last Filed: 02/13/23 14:39> - General Source: RN notes reviewed, old records reviewed - History of Present Illness MD Complaint: abdominal pain -: month(s) Location: RUQ, epigastric Radiation: RUQ, epigastric Migration to: no migration Severity: moderate Severity scale (1-10): 6 Quality: sharp Consistency: constant Improves With: nothing Worsens With: nothing Associated Symptoms: nausea Treatments Prior to Arrival: other (0) <Rodolfo Lanier - Last Filed: 02/13/23 18:00> - General Chief Complaint: Abdominal Pain Stated Complaint: gallbladder Time Seen by Provider: 02/13/23 14:11 - History of Present Illness Initial Comments: 62-year-old female presents emergency Department chief complaint abdominal pain. Patient states that she sees Dr. Jiang. She has had a HIDA scan outpatient showing biliary dyskinesia states it's overactive and states that she called the office recommended come emergency department for pain control. Patient denies any history gallstones denies any fevers or chills. No chest pain. (Morgan Gaitan) This is a 62-year-old female to the emergency department for evaluation. Patient had outpatient HIDA scan for possible gallbladder evaluation. Patient presents for recurrent gallbladder issues (Rodolfo Lanier) - Related Data Home Medications Medication Instructions Recorded Confirmed ALPRAZolam [Xanax] 1 mg PO TID PRN 03/24/14 11/14/22 PARoxetine HCL [Paxil] 40 mg PO DAILY 10/16/18 11/14/22 Butalb/APAP/Caff 50-325-40Mg 1 tab PO Q4H PRN 04/02/20 11/14/22 [Fioricet 50-325-40] Amoxicillin 875 mg PO Q12HR 11/09/22 11/14/22 Brexpiprazole [Rexulti] 2 mg PO DAILY 11/09/22 11/14/22 busPIRone HCL [Buspar] 15 mg PO BID 11/09/22 11/14/22 Allergies Allergy/AdvReac Type Severity Reaction Status Date / Time Tetanus Vaccines and Toxoid Allergy Swelling/Arm Verified 02/13/23 14:04 Pain Review of Systems ROS Other: All systems not noted in ROS Statement are negative. <Morgan Gaitan - Last Filed: 02/13/23 14:39> ROS Other: All systems not noted in ROS Statement are negative. <YolandeRodolfo Alphonso - Last Filed: 02/13/23 18:00> ROS Statement: Those systems with pertinent positive or pertinent negative responses have been documented in the HPI. Past Medical History Past Medical History: Pneumonia Additional Past Medical History / Comment(s): migraine headaches, hx. heart murmur, occ gastritits, hx colon polyp, slight elevated cholesterol, PRE CANCEROUS ADENOMA FOUND DURING COLONOSCOPY 06/10/19. History of Any Multi-Drug Resistant Organisms: MRSA Date of last positivie culture/infection: 2011 MDRO Source:: right axilla, neck Past Surgical History: Section, Hernia Repair Additional Past Surgical History / Comment(s): laparoscopy w/lysis of adhesions in October 2018, had robotic ventral hernia repair & lysis of adhesions in November 2018, COLONOSCOPY 06/10/19, D&C. Past Anesthesia/Blood Transfusion Reactions: No Reported Reaction Additional Past Anesthesia/Blood Transfusion Reaction / Comment(s): never had a blood transfusion Past Psychological History: Anxiety, Depression Smoking Status: Current every day smoker - Past Family History Father Family Medical History: Cancer Additional Family Medical History / Comment(s): LUNG AND LIVER <Morgan Gaitan - Last Filed: 02/13/23 14:39> General Exam Limitations: no limitations <Morgan Gaitan Jennifer - Last Filed: 02/13/23 14:39> General appearance: alert, in no apparent distress Head exam: Present: atraumatic, normocephalic, normal inspection Eye exam: Present: normal appearance, PERRL, EOMI. Absent: scleral icterus, conjunctival injection, periorbital swelling ENT exam: Present: normal exam, mucous membranes moist Neck exam: Present: normal inspection. Absent: tenderness, meningismus, lymphadenopathy Respiratory exam: Present: normal lung sounds bilaterally. Absent: respiratory distress, wheezes, rales, rhonchi, stridor Cardiovascular Exam: Present: regular rate, normal rhythm, normal heart sounds. Absent: systolic murmur, diastolic murmur, rubs, gallop, clicks GI/Abdominal exam: Present: soft, tenderness, guarding, normal bowel sounds. Absent: distended, rebound, rigid Extremities exam: Present: normal inspection, full ROM, normal capillary refill. Absent: tenderness, pedal edema, joint swelling, calf tenderness Back exam: Present: normal inspection Neurological exam: Present: alert, oriented X3, CN II-XII intact Psychiatric exam: Present: normal affect, normal mood Skin exam: Present: warm, dry, intact, normal color. Absent: rash <Rodolfo Lanier - Last Filed: 02/13/23 18:00> - General Exam Comments Initial Comments: Visual Physical Exam Vital signs reviewed General: Well-appearing, nontoxic, no acute distress. Head: Normocephalic, atraumatic Eyes: PERRLA, EOMI ENT: Airway patent Chest: Nonlabored breathing Skin: No visual rash, normal skin tone Neuro: Alert and oriented 3 Musculoskeletal: No gross abnormalities (Morgan Gaitan) Course <Rodolfo Lanier - Last Filed: 02/13/23 18:00> Vital Signs 02/13/23 14:04 Temperature 98.1 F Pulse Rate 69 Respiratory 16 Rate Blood Pressure 112/67 O2 Sat by Pulse 99 Oximetry - Reevaluation(s) Reevaluation #1: 02/13/23 17:56 Medical records reviewed (Rodolfo Lanier) Reevaluation #2: 02/13/23 17:56 Patient still with abdominal pain here in the ER (Rodolfo Lanier) Reevaluation #3: 02/13/23 17:56 Patient informed results and questions answered (Rodolfo Lanier) Reevaluation #4: 02/13/23 17:55 Was pt. sent in by a medical professional or institution? @ -no Did you speak to anyone other than the patient for history? @ -no Did you review nursing and triage notes? @ -agree Were old charts reviewed? @ -yes Differential Diagnosis? @ -prior EKG interpreted by me (3pts min.)? @ -yes X-rays interpreted by me (1pt min.)? @ -yes CT interpreted by me (1pt min.)? @ -no U/S interpreted by me (1pt. min.)? @ -no What testing was considered but not performed? (CT, X-rays, U/S, labs)? Why? @ -no What meds were considered but not given? Why? @ -no Did you discuss the management of the patient with other professionals? @ -no Did you reconcile home meds? @ -no Was smoking cessation discussed for >3mins.? @ -no Was critical care preformed (if so, how long)? @ -no Were there social determinants of health that impacted care today? How? (Homelessness, low income, unemployed, alcoholism, drug addiction, transportation, low edu. Level, literacy, decrease access to med. care, nursing home, rehab)? @ -no Was there de-escalation of care discussed even if they declined? (Discuss DNR or withdrawal of care, Hospice)? @ -no What co-morbidities impacted this encounter? (DM, HTN, Smoking, COPD, CAD, Cancer, CVA, Hep., AIDS, mental health diagnosis, sleep apnea, morbid obesity)? @ -none Was patient admitted / discharged? @ - Undiagnosed new problem with uncertain prognosis? @ -no Drug Therapy requiring intensive monitoring for toxicity (Heparin, Nitro, Insulin, Cardizem)? @ -no Were any procedures done? @ -no Diagnosis/symptom? @ - Acute, or Chronic, or Acute on Chronic? @ -acute Uncomplicated (without systemic symptoms) or Complicated (systemic symptoms)? @ -complicated Side effects of treatment? @ -no Exacerbation, Progression, or Severe Exacerbation] @ -no Poses a threat to life or bodily function? @ -yes (Rodolfo Lanier) Reevaluation #5: 02/13/23 17:55 Differential Abdominal Pain Women: Appendicitis, Cholecystitis, diverticulosis, ischemic bowel, pancreatitis, hepatitis, UTI, gastroenteritis, AAA, incarcerated hernia, bowel obstruction, constipation, inflammatory bowel, hepatitis, peptic ulcer disease, splenic infarction, perforated viscus, vulvitis, ovarian torsion, PID, kidney stone, placenta abruption, this is not meant to be an all-inclusive list (Rodolfo Lanier) - Consultations Consultation #1: Focused spoke with Dr. Evangelista who agrees to admit this patient (Rodolfo Lanier) Medical Decision Making - Lab Data Result diagrams: 02/13/23 14:27 02/13/23 14:27 - Radiology Data Radiology results: pending, report reviewed, image reviewed <Rodolfo Lanier - Last Filed: 02/13/23 18:00> - Medical Decision Making 62 female to the emergency department for evaluation. Patient presents today for evaluation abdominal pain. Patient will be admitted for pain control and surgical evaluation and treatment 62 (Rodolfo Lanier) - Lab Data Lab Results 02/13/23 02/13/23 02/13/23 Range/Units 14:27 14:27 14:27 WBC 5.4 (3.8-10.6) k/uL RBC 4.64 (3.80-5.40) m/uL Hgb 14.6 (11.4-16.0) gm/dL Hct 41.7 (34.0-46.0) % MCV 89.9 (80.0-100.0) fL MCH 31.4 (25.0-35.0) pg MCHC 35.0 (31.0-37.0) g/dL RDW 13.0 (11.5-15.5) % Plt Count 253 (150-450) k/uL MPV 7.3 Neutrophils % 63 % Lymphocytes % 28 % Monocytes % 6 % Eosinophils % 1 % Basophils % 1 % Neutrophils # 3.4 (1.3-7.7) k/uL Lymphocytes # 1.5 (1.0-4.8) k/uL Monocytes # 0.3 (0-1.0) k/uL Eosinophils # 0.1 (0-0.7) k/uL Basophils # 0.0 (0-0.2) k/uL Sodium 137 (137-145) mmol/L Potassium 4.3 (3.5-5.1) mmol/L Chloride 104 (98-107) mmol/L Carbon Dioxide 26 (22-30) mmol/L Anion Gap 7 mmol/L BUN 12 (7-17) mg/dL Creatinine 0.75 (0.52-1.04) mg/dL Est GFR (CKD-EPI)AfAm >90 (>60 ml/min/1.73 sqM) Est GFR (CKD-EPI)NonAf 86 (>60 ml/min/1.73 sqM) Glucose 96 (74-99) mg/dL Calcium 9.7 (8.4-10.2) mg/dL Total Bilirubin 0.4 (0.2-1.3) mg/dL AST 21 (14-36) U/L ALT 18 (4-34) U/L Alkaline Phosphatase 73 (38-126) U/L Total Protein 7.5 (6.3-8.2) g/dL Albumin 4.5 (3.5-5.0) g/dL Lipase 72 (23-300) U/L Urine Color Light Yellow Urine Appearance Clear (Clear) Urine pH 5.5 (5.0-8.0) Ur Specific [place] 1.008 (1.001-1.035) Urine Protein Negative (Negative) Urine Glucose (UA) Negative (Negative) Urine Ketones Negative (Negative) Urine Blood Trace H (Negative) Urine Nitrite Negative (Negative) Urine Bilirubin Negative (Negative) Urine Urobilinogen <2.0 (<2.0) mg/dL Ur Leukocyte Esterase Small H (Negative) Urine RBC 1 (0-5) /hpf Urine WBC 2 (0-5) /hpf Ur Squamous Epith Cells 2 (0-4) /hpf Urine Bacteria Moderate H (None) /hpf Urine Mucus Rare H (None) /hpf Disposition <Morgan Gaitan - Last Filed: 02/13/23 14:39> Is patient prescribed a controlled substance at d/c from ED?: No Time of Disposition: 18:00 <Rodolfo Lanire - Last Filed: 02/13/23 18:00> Clinical Impression: Abdominal pain, Cholecystitis Disposition: ADMITTED IP TO THIS HOSP Condition: Good Referrals: Alena Armstrong NPC [Primary Care Provider] - 1-2 days
[2023-02-13 14:41] LABS: Basophils % (A) 1 %; Eosinophils # (A) 0.1 k/uL (0-0.7); Eosinophils % (A) 1 %; HCT 41.7 % (34.0-46.0); HGB 14.6 gm/dL (11.4-16.0); Lymphocytes # (A) 1.5 k/uL (1.0-4.8); Lymphocytes % (A) 28 %; MCH 31.4 pg (25.0-35.0); MCV 89.9 fL (80.0-100.0); Mean Platelet Volume 7.3; Monocytes # (A) 0.3 k/uL (0-1.0); Monocytes % (A) 6 %; Neutrophils # (A) 3.4 k/uL (1.3-7.7); Neutrophils % (A) 63 %; Platelet Count 253 k/uL (150-450); RBC 4.64 m/uL (3.80-5.40); WBC 5.4 k/uL (3.8-10.6)
[2023-02-13 15:04] LABS: ALT 18 U/L (4-34); AST 21 U/L (14-36); African American GFR (CKD) >90 (>60 ml/min/1.73 sqM); Albumin 4.5 g/dL (3.5-5.0); Alkaline Phosphatase 73 U/L (38-126); Anion Gap 7 mmol/L; Blood Urea Nitrogen 12 mg/dL (7-17); Calcium 9.7 mg/dL (8.4-10.2); Carbon Dioxide 26 mmol/L (22-30); Chloride 104 mmol/L (98-107); Glucose 96 mg/dL (74-99); Lipase 72 U/L (23-300); Non-African American GFR(CKD) 86 (>60 ml/min/1.73 sqM); Potassium 4.3 mmol/L (3.5-5.1); Sodium 137 mmol/L (137-145); Total Bilirubin 0.4 mg/dL (0.2-1.3); Total Protein 7.5 g/dL (6.3-8.2)
[2023-02-13 15:06] LABS: Appearance,Urine Clear (Clear); Bacteria,Urine Moderate /hpf; Bilirubin,Urine Negative (Negative); Blood,Urine Trace (Negative); Color,Urine Light Yellow; Glucose,Urine (UA) Negative (Negative); Ketones,Urine Negative (Negative); Leukocyte Esterase,Urine Small (Negative); Mucus,Urine Rare /hpf; Nitrite,Urine Negative (Negative); PH, Urine 5.5 (5.0-8.0); Protein,Urine Negative (Negative); RBC,Urine 1 /hpf (0-5); Specific Gravity,Urine 1.008 (1.001-1.035); Squamous Epithelial Cell,Urine 2 /hpf (0-4); Urobilinogen,Urine <2.0 mg/dL (<2.0); WBC,Urine 2 /hpf (0-5)
[2023-02-13] MEDS ORDERED: NALOXONE 0.4 MG/ML 1 ML VIAL IV PRN (17:58)
[2023-02-13] MEDS ORDERED: ONDANSETRON 4 MG/2 ML VIAL IVP PRN (17:58)
[2023-02-13] MEDS: MORPHINE SULFATE 4 MG/ML SYRINGE IV PRN ×2 (18:22→23:06)
[2023-02-13] MEDS: SODIUM CHLORIDE 0.9% 1,000 ML IV SCH (18:24)
--- NOTE | 2023-02-13 19:07 | US ---
EXAMINATION TYPE: US gallbladder DATE OF EXAM: 02/13/2023 COMPARISON: 07/16/19 CLINICAL INDICATION: Female, 62 years old with history of pain; RUQ and epigastric pain. Pt states sh shady is getting her GB taking out tomorrow. TECHNIQUE: Multiple sonographic images of the right upper quadrant are obtained. FINDINGS: EXAM MEASUREMENTS: Liver Length: 15.9 cm Gallbladder Wall: 0.18 cm CBD: 0.34 cm Right Kidney: 10.1 x 4.3 x 4.4 cm SERVICES MANAGER NOTES: Pancreas: Limited due to bowel gas. Parts visualized wnl Liver: wnl Gallbladder: wnl, gallbladder folds noted. Evidence for sonographic Starkey's sign: No CBD: wnl Right Kidney: wnl IMPRESSION: No evidence for acute abdominal process.
[2023-02-14] MEDS: SODIUM CHLORIDE 0.9% 1,000 ML IV SCH ×3 (04:05→19:49)
--- NOTE | 2023-02-14 10:34 | P.GSHP ---
History of Present Illness H&P Date: 02/14/23 CHIEF COMPLAINT: Abdominal pain HISTORY OF PRESENT ILLNESS: This is a 62-year-old female who complains of right upper quadrant abdominal flank pain with nausea for over a week. She has had prior episodes with similar symptoms that resolve. However, this time the pain has continued but it is less in intensity than when it initially started. She also reports having a fever around 100 when the pain initiated. Patient reports that she did have a HIDA scan about a month ago at [facility] that had shown hyperkinetic gallbladder. Gallbladder Ultrasound shows no acute abdominal process. Patient's prior surgical history does include and ventral hernia repair. Patient denies any vomiting. Patient denies any urinary symptoms. PAST MEDICAL HISTORY: See list. PAST SURGICAL HISTORY: See list. MEDICATIONS: See list. ALLERGIES: See list. SOCIAL HISTORY: No illicit drug use. REVIEW OF SYSTEMS: CONSTITUTIONAL: Denies fever or chills. HEENT: Denies blurred vision, vision changes, or eye pain. Denies hemoptysis ENDOCRINE: Denies heat or cold intolerance. CARDIOVASCULAR: Denies chest pain or pressure. RESPIRATORY: No shortness of breath. GASTROINTESTINAL: Denies abdominal pain. Denies nausea or vomiting. NEURO: Denies history of seizures. PSYCH: No depression or suicidal ideation HEMATOLOGIC: Denies bleeding disorders. LYMPHATIC: The patient denies any lumps and bumps around the neck. GENITOURINARY: Denies any blood in urine or increased urinary frequency. MUSCULOSKELETAL: Denies myalgias. Denies joint swelling. Denies decreased range of motion beyond patients baseline. SKIN: Denies pruitis. Denies rash. PHYSICAL EXAM: VITAL SIGNS: Reviewed GENERAL: Well-developed in no acute distress. HEENT: No sclera icterus. Extraocular movements grossly intact. Moist buccal mucosa. Head is atraumatic, normocephalic. Hears conversational speech. No nasal drainage. NECK: Supple without lymphadenopathy. CHEST: Non-labored respirations and equal bilateral excursions. CARDIOVASCULAR: Palpable 2+ radial pulses. ABDOMEN: Soft. Nondistended. Minimal tenderness to palpation in the right upper quadrant MUSCULOSKELETAL: No clubbing or cyanosis. NEUROLOGIC: No focal or lateralizing signs. Cranial nerves II through XII grossly intact. PSYCH: Appropriate affect. Alert and oriented to person, place and time. SKIN: Well perfused. Good skin turgor. LABORATORY DATA: WBC 5.4 Hgb 14.6 platelets 253 Sodium 137 potassium 4.3 creatinine 0.75 LFTs normal Lipase 72 Urinalysis negative for infection IMAGING: Ultrasound findings as stated above ASSESSMENT: 1. Right upper quadrant abdominal pain 2. History of hyperkinetic gallbladder PLAN: -HIDA scan with EF ordered for today -Further recommendations forthcoming per surgeon -Continue pain medications and antiemetics as needed -Continue IV fluids Physician Deck Steward note has been reviewed by physician. Signing provider agrees with the documented findings, assessment, and plan of care. Past Medical History Past Medical History: Pneumonia Additional Past Medical History / Comment(s): migraine headaches, hx. heart mur mur, occ gastritits, hx colon polyp, slight elevated cholesterol, PRE CANCEROUS ADENOMA FOUND DURING COLONOSCOPY 06/10/19. History of Any Multi-Drug Resistant Organisms: MRSA Date of last positivie culture/infection: 2011 MDRO Source:: right axilla, neck Past Surgical History: Section, Hernia Repair Additional Past Surgical History / Comment(s): laparoscopy w/lysis of adhesions in October 2018, had robotic ventral hernia repair & lysis of adhesions in November 2018, COLONOSCOPY 06/10/19, D&C. Past Anesthesia/Blood Transfusion Reactions: No Reported Reaction Additional Past Anesthesia/Blood Transfusion Reaction / Comment(s): never had a blood transfusion Past Psychological History: Anxiety, Depression Smoking Status: Current every day smoker Past Alcohol Use History: Rare Additional Past Alcohol Use History / Comment(s): Smokes 1/2 ppd. Past Drug Use History: None Reported - Past Family History Father Family Medical History: Cancer Additional Family Medical History / Comment(s): LUNG AND LIVER Medications and Allergies Home Medications Medication Instructions Recorded Confirmed Type ALPRAZolam [Xanax] 1 mg PO TID PRN 03/24/14 02/13/23 History PARoxetine HCL [Paxil] 40 mg PO DAILY 10/16/18 02/13/23 History Butalb/APAP/Caff 50-325-40Mg 1 tab PO Q4H PRN 04/02/20 02/13/23 History [Fioricet 50-325-40] Brexpiprazole [Rexulti] 2 mg PO DAILY 11/09/22 02/13/23 History Cyclobenzaprine [Flexeril] 10 mg PO HS PRN 02/13/23 02/13/23 History Omeprazole 20 mg PO BID 02/13/23 02/13/23 History busPIRone HCl [Buspar] 10 mg PO DAILY 02/13/23 02/13/23 History Allergies Allergy/AdvReac Type Severity Reaction Status Date / Time Tetanus Vaccines and Toxoid Allergy Swelling/Arm Verified 02/13/23 19:17 Pain Surgical - Exam Vital Signs Temp Pulse Resp BP Pulse Ox 98.1 F 69 16 112/67 99 02/13/23 14:04 02/13/23 14:04 02/13/23 14:04 02/13/23 14:04 02/13/23 14:04 Results - Labs 02/13/23 14:27 02/13/23 14:27 Abnormal Lab Results - Last 24 Hours (Table) 02/13/23 Range/Units 14:27 Urine Blood Trace H (Negative) Ur Leukocyte Esterase Small H (Negative) Urine Bacteria Moderate H (None) /hpf Urine Mucus Rare H (None) /hpf Diabetes panel 02/13/23 Range/Units 14:27 Sodium 137 (137-145) mmol/L Potassium 4.3 (3.5-5.1) mmol/L Chloride 104 (98-107) mmol/L Carbon Dioxide 26 (22-30) mmol/L BUN 12 (7-17) mg/dL Creatinine 0.75 (0.52-1.04) mg/dL Glucose 96 (74-99) mg/dL Calcium 9.7 (8.4-10.2) mg/dL AST 21 (14-36) U/L ALT 18 (4-34) U/L Alkaline Phosphatase 73 (38-126) U/L Total Protein 7.5 (6.3-8.2) g/dL Albumin 4.5 (3.5-5.0) g/dL Calcium panel 02/13/23 Range/Units 14:27 Calcium 9.7 (8.4-10.2) mg/dL Albumin 4.5 (3.5-5.0) g/dL Pituitary panel 02/13/23 Range/Units 14:27 Sodium 137 (137-145) mmol/L Potassium 4.3 (3.5-5.1) mmol/L Chloride 104 (98-107) mmol/L Carbon Dioxide 26 (22-30) mmol/L BUN 12 (7-17) mg/dL Creatinine 0.75 (0.52-1.04) mg/dL Glucose 96 (74-99) mg/dL Calcium 9.7 (8.4-10.2) mg/dL Adrenal panel 02/13/23 Range/Units 14:27 Sodium 137 (137-145) mmol/L Potassium 4.3 (3.5-5.1) mmol/L Chloride 104 (98-107) mmol/L Carbon Dioxide 26 (22-30) mmol/L BUN 12 (7-17) mg/dL Creatinine 0.75 (0.52-1.04) mg/dL Glucose 96 (74-99) mg/dL Calcium 9.7 (8.4-10.2) mg/dL Total Bilirubin 0.4 (0.2-1.3) mg/dL AST 21 (14-36) U/L ALT 18 (4-34) U/L Alkaline Phosphatase 73 (38-126) U/L Total Protein 7.5 (6.3-8.2) g/dL Albumin 4.5 (3.5-5.0) g/dL
[2023-02-14 11:40] LABS: ALT 13 U/L (8-44); AST 10 U/L (13-35); Albumin 3.6 d/dL (3.8-4.9); Albumin/Globulin Ratio 1.89 Ratio (1.60-3.17); Alkaline Phosphatase 69 U/L (41-126); Blood Urea Nitrogen 8.4 mg/dL (9.0-27.0); Calcium 8.6 mg/dL (8.7-10.3); Carbon Dioxide 22.6 mmol/L (21.6-31.8); Chloride 112 mmol/L (96-109); Globulin 1.9 d/dL (1.6-3.3); Glucose 95 mg/dL (70-110); Sodium 144 mmol/L (135-145); Total Bilirubin <0.2 mg/dL (0.3-1.2); Total Protein 5.5 d/dL (6.2-8.2)
[2023-02-14 11:57] LABS: Basophils # (A) 0.04 X 10*3/uL (0.00-0.10); Basophils % (A) 0.7 %; Eosinophils # (A) 0.09 X 10*3/uL (0.04-0.35); Eosinophils % (A) 1.7 %; HCT 36.2 % (37.2-46.3); HGB 12.4 d/dL (12.0-15.0); Lymphocytes % (A) 29.4 %; MCH 31.7 pg (27.0-32.0); MCHC 34.3 d/dL (32.0-37.0); MCV 92.6 FL (80.0-97.0); Mean Platelet Volume 9.9 FL (9.5-12.2); Monocytes # (A) 0.43 X 10*3/uL (0.20-1.00); Monocytes % (A) 7.9 %; NRBC Per 100 WBC 0 X 10*3/uL (0.00-0.01); Neutrophils # (A) 3.28 X 10*3/uL (1.80-7.70); Neutrophils % (A) 60.1 %; Platelet Count 209 X 10*3/uL (140-440); RBC 3.91 X 10*6/uL (4.10-5.20); RDW 12.8 % (11.5-14.5); WBC 5.45 X 10*3/uL (4.50-10.00)
--- NOTE | 2023-02-14 14:44 | NM ---
Nuclear medicine hepatobiliary scan. HISTORY: Pain. DOSAGE: The patient received 8 0z Ensure plus and 5.1 mCi of Technetium 99m Choletec. FINDINGS: There is normal hepatic extraction. The gallbladder is seen by 55 minutes. There is bilia ry to bowel clearance by 25 minutes. Ejection fraction is 95%. IMPRESSION: 1. Gallbladder fills at the upper limits of normal at 55 minutes. 2. Ejection fraction 95% correlate for hyperdynamic gallbladder.
[2023-02-14] MEDS ORDERED: DEXAMETHASONE SOD PHOSPHATE 4 MG/ML 1 ML VIAL IV ONE (16:40)
[2023-02-14] MEDS ORDERED: ONDANSETRON 4 MG/2 ML VIAL IVP ONE (16:40)
[2023-02-14] MEDS ORDERED: LACTATED RINGERS 1,000 ML IV SCH (16:45)
[2023-02-14] MEDS ORDERED: HEPARIN SODIUM,PORCINE/PF 5,000 UNIT/0.5 ML SYRINGE SQ PRN (17:31)
[2023-02-14] MEDS ORDERED: INDOCYANINE GREEN 25 MG VIAL IV STA (17:31)
--- NOTE | 2023-02-14 17:34 | P.PN ---
Subjective Progress Note Date: 02/14/23 CHIEF COMPLAINT: Right upper quadrant abdominal pain HISTORY OF PRESENT ILLNESS: The patient is a 62-year-old female who presents with worsening right upper quadrant abdominal pain after eating fatty greasy foods. She reports bandlike sensation radiating from the left upper quadrant to the right upper quadrant. Prior upper endoscopies have been performed. Patient reports symptoms are worse despite nothing by mouth status and conservative management. ROS: No fevers or chills. No productive sputum PHYSICAL EXAM: VITAL SIGNS: Reviewed CONSTITUTIONAL: Well developed and in no acute distress. EYES: Conjuctivae without sclera icterus. Extraocular movements grossly intact. HEAD, EARS, NOSE, THROAT: Moist buccal mucosa. Head is atraumatic, normocephalic. Hears conversational speech. No nasal drainage. RESPIRATORY: Non-labored respirations and equal bilateral excursions. CARDIOVASCULAR: Palpable 2+ radial pulses. ABDOMEN: Pinpoint tenderness right upper quadrant, moderate to severe, peritonitis MUSCULOSKELETAL: No gross deformity of the lower extremities noted. No clubbing. No cyanosis. SKIN: Good skin turgor. Well perfused. NEUROLOGIC: Cranial nerves II through XII grossly intact. No focal or lateralizing signs. PSYCH: Appropriate affect. Alert and oriented to person, place and time. CLINICAL LABS: Reviewed. LFTs normal limits. STUDIES: HIDA scan reviewed demonstrates gallbladder disorder, hyperdynamic gallbladder ASSESSMENT: 1. Right upper quadrant pain, moderate to severe, peritonitis 2. Clinical cholecystitis 3. Gallbladder disorder, hyperdynamic gallbladder PLAN: 1. Robotic cholecystectomy described including benefits and risks. 2. Heparin DVT prophylaxis 3. Risk of persistent abdominal pain also described with hyperdynamic gallbladder, gallbladder disorder Objective - Vital Signs Vital signs: Vital Signs Temp 98.1 F 02/14/23 15:00 Pulse 54 L 02/14/23 15:00 Resp 18 02/14/23 15:00 BP 97/59 02/14/23 15:00 Pulse Ox 96 02/14/23 15:00 FiO2 Intake & Output 02/13/23 02/14/23 02/14/23 18:59 06:59 18:59 Weight 60.781 kg 60.781 kg Other: Voiding Method Toilet Toilet # Voids 2 1 - Labs CBC & Chem 7: 02/14/23 06:43 02/14/23 06:43 Labs: Abnormal Lab Results - Last 24 Hours (Table) 02/14/23 02/14/23 Range/Units 06:43 06:43 RBC 3.91 L (4.10-5.20) X 10*6/uL Hct 36.2 L (37.2-46.3) % Chloride 112 H (96-109) mmol/L BUN 8.4 L (9.0-27.0) mg/dL Calcium 8.6 L (8.7-10.3) mg/dL Total Bilirubin <0.2 L (0.3-1.2) mg/dL AST 10 L (13-35) U/L Total Protein 5.5 L (6.2-8.2) d/dL Albumin 3.6 L (3.8-4.9) d/dL
[2023-02-14] MEDS ORDERED: LACTATED RINGERS 1,000 ML IV ONE (17:36)
[2023-02-14] MEDS ORDERED: INDOCYANINE GREEN 25 MG VIAL IV ONE (18:00)
[2023-02-14] MEDS ORDERED: HYDROmorphone (PF) 1 MG/ML ONE (18:00)
[2023-02-14] MEDS ORDERED: ePHEDrine 50 MG/ML 1 ML VIAL ONE (18:00)
[2023-02-14] MEDS ORDERED: ROCURONIUM 10 MG/ML (5 ML VIAL) IV ONE (18:00)
[2023-02-14] MEDS ORDERED: MIDAZOLAM 2 MG/2 ML VIAL ONE (18:00)
[2023-02-14] MEDS ORDERED: GLYCOPYRROLATE 0.2 MG/ML 2 ML VIAL ONE (18:00)
[2023-02-14] MEDS ORDERED: SUCCINYLCHOLINE CHLORIDE 200 MG/10 ML VIAL IV ONE (18:00)
[2023-02-14] MEDS ORDERED: NEOSTIGMINE 1 MG/ML 10 ML VIAL ONE (18:00)
[2023-02-14] MEDS ORDERED: LIDOCAINE 2% INJ 20 MG/ML (2 ML VIAL) ONE (18:00)
[2023-02-14] MEDS ORDERED: LIDOCAINE 4% LTA KIT (4 ML) TOPICAL ONE (18:00)
[2023-02-14] MEDS ORDERED: fentaNYL (PF) 50 MCG/ML 2 ML AMP ONE (18:00)
[2023-02-14] MEDS ORDERED: PROPOFOL 10 MG/ML 20 ML VIAL IV ONE (18:00)
[2023-02-14] MEDS ORDERED: LIDOCAINE 2%-EPI 1:100,000 20 ML VIAL SQ ONE (18:37)
[2023-02-14] MEDS ORDERED: ALPRAZolam 0.5 MG TAB PO PRN (20:00)
[2023-02-14] MEDS ORDERED: BUTALB/APAP/CAFF 50-325-40MG TAB PO PRN (20:00)
[2023-02-14] MEDS ORDERED: CYCLOBENZAPRINE 10 MG TAB PO PRN (20:00)
[2023-02-14] MEDS ORDERED: HYDROmorphone 1 MG/ML 1 ML SYRINGE IVP PRN (20:00)
[2023-02-14] MEDS ORDERED: ALPRAZolam 1 MG TAB PO PRN (20:04)
--- NOTE | 2023-02-14 20:07 | P.OP ---
Date of Procedure: 02/14/23 Description of Procedure: SURGEON: ILANA JIANG MD PREOPERATIVE DIAGNOSES: 1. Cholecystitis 2. Right upper quadrant abdominal pain with peritonitis 3. Depressive disorder 4. Gastroesophageal reflux disease 5. Generalized anxiety disorder POSTOPERATIVE DIAGNOSES: 1. Cholecystitis 2. Right upper quadrant abdominal pain with peritonitis 3. Depressive disorder 4. Gastroesophageal reflux disease 5. Generalized anxiety disorder 6. Pelvic adhesions OPERATION: Robotic-assisted da Shyanne Xi laparoscopic cholecystectomy, multiport with FIREFLY ESTIMATED BLOOD LOSS: 5 mL. SPECIMENS REMOVED: Gallbladder. COMPLICATIONS: None. OPERATIVE FINDINGS: 1. Gallbladder wall thickening consistent with cholecystitis 2. Peritoneal adhesions within the pelvis INDICATIONS: The patient is a 62-year-old female who presents moderate to severe right upper quadrant abdominal pain and clinical cholecystitis. Robotic assisted laparoscopic approach was described. Benefits and risks of the procedure including but not limited to bleeding, infection, injury to the biliary tree was described. Informed consent was obtained. DESCRIPTION OF PROCEDURE: Patient was brought to the operating room, placed in supine position. After general induction, the abdomen had been prepped and draped in standard sterile fashion. The robotic da Shyanne XI system was primed. After a timeout protocol was performed, the patient had been prepped and draped in standard sterile fashion. The patient was injected with indocyanine green. A 5 mm 0 degrees laparoscopic trocar entry was performed along the left upper quadrant. The abdomen insufflated to 15 mmHg pressure which was tolerated well. Diagnostic laparoscopy demonstrated no injury to bowel viscera or mesentery. The liver surface was unremarkable. Adhesions of the pelvis were identified. The gallbladder was redundant. Next, two 8 mm robotic ports were placed along the right upper abdomen. The camera 8-mm port was maintained along the epigastrium. Another 8 mm port was placed along the left upper abdominal wall after exchanging the 5 mm port. Please note that the ports were placed at least 10 to 15 cm away from the target anatomy of the gallbladder. The robot was docked along the left lateral abdomen. The patient was repositioned in reverse Trendelenburg position. Using a grasper for arm 3, a grasper for arm 4, including hook cautery for arm 1, the robotic system was docked and primed as described. Instruments were interchanged by the patient services assistant including hook cautery, Bovie cautery and clip appliers. I had sat at the console. The gallbladder wall was thickened consistent with cholecystitis. Dome down technique from the fundus to the infundibulum was performed. Next attention was brought to the infundibulum and cystic structures. The infundibulum and cystic duct were dissected free from surrounding tissues. The cystic duct was isolated. FIREFLY was used to identify the cystic artery and cystic structures. A critical view of safety was obtained. Large PLASTIC clips were used throughout the entire case. Using a clip manager intermediate, 2 clips were placed at the junction of the infundibulum and cystic duct. The cystic duct was divided between clips. Next, the cystic artery was similarly clipped and cauterized. Electro-Bovie cautery was used to remove the gallbladder from the hepatic fossa. Hemostasis was checked and found to be adequate. The robot was undocked. I re-scrubbed into the case. Using a 10 mm Endo Catch bag via the left upper quadrant incision, the specimen was removed from the abdominal cavity. All pneumoperitoneum instruments were evacuated from the abdominal cavity. The incisions were reapproximated using 4-0 Monocryl in an interrupted subcuticular fashion. Fascial defects were less than 8 mm in size. Please note along the trocar sites, local anesthetic was placed as a field block prior to insertion of all instruments. Liquid glue was applied to the skin. At the end of the procedure needle, sponge, and instrument count had been verified correct by the surgical garment assembly supervisor. The patient was transferred to postanesthesia care unit in stable condition. Intraoperative films were shared with the patient's family. Plan - Discharge Summary Discharge Rx Participant: Yes New Discharge Prescriptions: New Simethicone [Gas-X] 125 mg PO AC-TID PRN #20 capsule PRN Reason: Pain Ibuprofen [Motrin] 600 mg PO Q8HR PRN #30 tab PRN Reason: Pain Acetaminophen Tab [Tylenol Tab] 1,000 mg PO Q6HR PRN #30 tablet PRN Reason: Pain Continue ALPRAZolam [Xanax] 1 mg PO TID PRN PRN Reason: Anxiety PARoxetine HCL [Paxil] 40 mg PO DAILY Butalb/APAP/Caff 50-325-40Mg [Fioricet 50-325-40] 1 tab PO Q4H PRN PRN Reason: Migraine Headache Cyclobenzaprine [Flexeril] 10 mg PO HS PRN PRN Reason: Muscle Spasm busPIRone HCl [Buspar] 10 mg PO DAILY Brexpiprazole [Rexulti] 2 mg PO DAILY Omeprazole 20 mg PO BID Discharge Medication List ALPRAZolam [Xanax] 1 mg PO TID PRN 03/24/14 [History] PARoxetine HCL [Paxil] 40 mg PO DAILY 10/16/18 [History] Butalb/APAP/Caff 50-325-40Mg [Fioricet 50-325-40] 1 tab PO Q4H PRN 04/02/20 [History] Brexpiprazole [Rexulti] 2 mg PO DAILY 11/09/22 [History] Cyclobenzaprine [Flexeril] 10 mg PO HS PRN 02/13/23 [History] Omeprazole 20 mg PO BID 02/13/23 [History] busPIRone HCl [Buspar] 10 mg PO DAILY 02/13/23 [History] Acetaminophen Tab [Tylenol Tab] 1,000 mg PO Q6HR PRN #30 tablet 02/14/23 [Rx] Ibuprofen [Motrin] 600 mg PO Q8HR PRN #30 tab 02/14/23 [Rx] Simethicone [Gas-X] 125 mg PO AC-TID PRN #20 capsule 02/14/23 [Rx] Follow up Appointment(s)/Referral(s): Alena Armstrong NPC [Primary Care Provider] - 1-2 days Ilana Jiang MD [STAFF PHYSICIAN] - 02/19/23 (TELEHEALTH) Patient Instructions/Handouts: *Surgery [facility] - Laparoscopic Cholecystectomy Discharge Instructions, Low Fat Diet (DC) Activity/Diet/Wound Care/Special Instructions: TELEHEALTH - DR WILL CALL YOU BETWEEN 8 am to 8 pm Recommend low-fat diet for the next 2 days. No lifting over 10 pounds in 2 weeks until January 29December shower. No bath tub soaks for two weeks until January 29 Diet as tolerated. Use Tylenol, simethicone and ibuprofen or Aleve scheduled for the next 24-48 hours for best pain relief. Use ice along incisions for today to prevent swelling. Discharge Disposition: HOME SELF-CARE
[2023-02-14] MEDS ORDERED: KETOROLAC 15 MG/ML 1 ML VIAL IVP SCH (20:15)
[2023-02-14] MEDS ORDERED: ACETAMINOPHEN IV (For NPO) 1,000 MG in EMPTY BAG 1 BAG IVPB ONE (20:30)
[2023-02-14 20:36] VITALS: BP 157/77; PULSE 76; RESP 15; TEMP 97.4
[2023-02-14] MEDS ORDERED: PANTOPRAZOLE 40 MG TABLET PO SCH (21:00)
[2023-02-15] MEDS ORDERED: ONDANSETRON 4 MG/2 ML VIAL IVP PRN (07:00)
[2023-02-15] MEDS ORDERED: HYDROmorphone 0.5 MG/0.5 ML SYRINGE IVP PRN (07:00)
[2023-02-15] MEDS ORDERED: PARoxetine 20 MG TAB PO SCH (09:00)
[2023-02-15] MEDS ORDERED: NON FORMULARY DRUG (Brexpiprazole [Rexulti] 2 MG Tablet) PO SCH (09:00)
[2023-02-15] MEDS ORDERED: busPIRone HCl 10 MG TAB PO SCH (09:00)
== END 2023-02-14 21:30 | disposition home or self-care (01) ==
LOC: EC 13:48 → 6NMEDSUR 17:58 → 4SSUR 18:17 → 6NMEDSUR 18:31
PROVIDERS: ADMIT Surgery Plastic and Reconstructive Surgery; ATTEND Surgery Plastic and Reconstructive Surgery
DX: K81.1 Chronic cholecystitis (principal); K65.9 Peritonitis, unspecified; N73.6 Female pelvic peritoneal adhesions (postinfective); G43.909 Migraine, unspecified, not intractable, without status migrainosus; K21.9 Gastro-esophageal reflux disease without esophagitis; F32.A Depression, unspecified; F41.1 Generalized anxiety disorder; F17.210 Nicotine dependence, cigarettes, uncomplicated; Z79.899 Other long term (current) drug therapy; Z88.7 Allergy status to serum and vaccine; Z87.01 Personal history of pneumonia (recurrent); Z86.14 Personal history of Methicillin resistant Staphylococcus aureus infection; Z86.010 Personal history of colon polyps; Z98.891 History of uterine scar from previous surgery; Z98.890 Other specified postprocedural states; Z80.1 Family history of malignant neoplasm of trachea, bronchus and lung; Z80.0 Family history of malignant neoplasm of digestive organs
CPT/HCPCS: 47562; S2900; 36415; 76705; 78227; 80053; 81001; 83690; 85025; 88304; 96374; 96375; 96376; 99285

== ENCOUNTER → 2023-07-26 | Outpatient (CLI) | payer OTHER ==
--- NOTE | 2023-07-28 21:59 | CT ---
EXAMINATION TYPE: CT abdomen pelvis wo con DATE OF EXAM: 07/26/2023 COMPARISON: 07/16/2019 HISTORY: 63-year-old female R1 0.30, lower abd pain CT DLP: 579 mGycm. Automated exposure control for dose reduction was used. TECHNIQUE: Contiguous axial scanning of the abdomen and pelvis without IV contrast. Coronal and sagit agata reconstructions performed. FINDINGS: The heart is normal size without pericardial effusion. Lung bases clear without pleural effusion. Noncontrast appearance of the liver, adrenal glands, and kidneys, and pancreas show no gross abnormal ity by noncontrast CT. Gallbladder surgically absent. Mild to moderate atherosclerotic calcifications infrarenal abdominal aorta and common iliac arteries without aneurysm. No dilated small bowel, free fluid, or free air. No mesenteric or retroperitoneal adenopathy. Normal appendix. Oral contrast progressed to the splenic flexure of the colon. There is mild overall stool burden. No pericolonic inflammatory change. Mild to moderate circumferential bladder wall thickening. Small pelvic phleboliths are noted. Uterus anteverted. Both ovaries are visualized. No abnormal fluid collection in the pelvis or pelvic lymphad enopathy. Bones: Mild degenerative change of the hips. Levoconvex curvature lumbar spine. Degenerative grade 1 retrolisthesis L2/L3 secondary to facet arthropathy. No osseous destructive process. IMPRESSION: 1. Mild to moderate circumferential bladder wall thickening may be chronic for the patient. Correlat e to exclude cystitis. 2. Status post cholecystectomy. No acute inflammatory process identified in the abdomen or pelvis to explain the patient's symptoms.
== END | disposition home or self-care (01) ==
LOC: RADCTMAIN 09:55
PROVIDERS: ATTEND Family Medicine
DX: N32.89 Other specified disorders of bladder (principal); R10.30 Lower abdominal pain, unspecified; Z90.49 Acquired absence of other specified parts of digestive tract
CPT/HCPCS: 74176

== ENCOUNTER → 2023-08-30 | Outpatient (CLI) | payer OTHER ==
--- NOTE | 2023-09-01 11:20 | CA ---
Transthoracic Echo Report Name: Caridad Cheek Age: 63 Gender: F : 1960 Exam Date: 08/30/2023 14:52 Exam Location: [facility] Ht (in): 64.5 Wt (lb): 135 Ordering Physician: Chavo Fofana MD Attending/Referring Phys: Alena Armstrong [facility] Associate Director Qa Jasmina Pyle RDCS Procedure CPT: Indications: R00.2 palpitations Cardiac Hx: Technical Quality: Good Contrast 1: Total Dose (mL): Contrast 2: Total Dose (mL): MEASUREMENTS (Male / Female) Normal Values 2D ECHO LV Diastolic Diameter PLAX 4.1 cm 4.2 - 5.9 / 3.9 - 5.3 cm LV Systolic Diameter PLAX 2.6 cm IVS Diastolic Thickness 0.9 cm 0.6 - 1.0 / 0.6 - 0.9 cm LVPW Diastolic Thickness 0.9 cm 0.6 - 1.0 / 0.6 - 0.9 cm LV Relative Wall Thickness 0.4 RV Internal Dim ED PLAX 2.9 cm LA Systolic Diameter LX 3.2 cm 3.0 - 4.0 / 2.7 - 3.8 cm LV Diastolic Volume MOD 4C 84.3 cm??? LV Systolic Volume MOD 4C 38.8 cm??? LV Ejection Fraction MOD 4C 54.0 % LV Cardiac Index MOD 4C 1549.7 cm???/min???m??? LV Diastolic Length 4C 7.8 cm LV Systolic Length 4C 6.3 cm LV Diastolic Volume MOD 2C 64.9 cm??? LV Systolic Volume MOD 2C 24.4 cm??? LV Ejection Fraction MOD 2C 62.4 % LV Cardiac Index MOD 2C 1379.0 cm???/min???m??? LV Diastolic Length 2C 7.8 cm LV Systolic Length 2C 6.2 cm LA Volume 46.4 cm??? 18 - 58 / 22 - 52 cm??? LA Volume Index 27.7 cm???/m??? 16 - 28 cm???/m??? M-MODE Aortic Root Diameter MM 2.7 cm MV E Point Septal Separation 0.3 cm AV Cusp Separation MM 1.8 cm DOPPLER AV Peak Velocity 181.3 cm/s AV Peak Gradient 13.1 mmHg MV Area PHT 3.0 cm??? Mitral E Point Velocity 112.8 cm/s Mitral A Point Velocity 87.4 cm/s Mitral E to A Ratio 1.3 MV Deceleration Time 249.4 ms MV E' Velocity 9.6 cm/s Mitral E to MV E' Ratio 11.7 TR Peak Velocity 246.6 cm/s TR Peak Gradient 24.3 mmHg Right Ventricular Systolic Press 28.5 mmHg FINDINGS Left Ventricle Left ventricular ejection fraction is estimated at 60-65 %. Left ventricular cavity size normal. Left ventricular wall thickness normal. Right Ventricle Normal right ventricular size. Right ventricular systolic pressure within normal limits. Right Atrium Normal right atrial size. Left Atrium Normal left atrial size. Mitral Valve Structurally normal mitral valve. No mitral stenosis, regurgitation or prolapse. Aortic Valve Trileaflet aortic valve. No aortic valve stenosis or regurgitation. Tricuspid Valve Structurally normal tricuspid valve. Mild tricuspid regurgitation. Pulmonic Valve Pulmonic valve not well visualized. No pulmonic regurgitation. Pericardium No pericardial effusion. Aorta Normal size aortic root and proximal ascending aorta. CONCLUSIONS Left ventricular ejection fraction is estimated at 60-65 %. Left ventricular wall thickness normal. No obvious regional wall motion abnormality No significant valvular dysfunction Previewed by: Dr Emanuel Ely (Electronically Signed) Final Date: 01 September 2023 11:20
== END | disposition home or self-care (01) ==
LOC: RADECHMAIN 14:48
PROVIDERS: ATTEND Family Medicine
DX: R00.2 Palpitations (principal)
CPT/HCPCS: 93306

== ENCOUNTER → 2023-10-21 | Outpatient (CLI) | payer OTHER ==
--- NOTE | 2023-10-23 14:11 | MM ---
Reason for Exam: Screening (asymptomatic). Last screening mammogram was performed 12 month(s) ago. Patient History: Menarche at age 15. First Full-Term at age 26. Postmenopausal. Hormonal Contraceptives, starting at age 24 for 1 year. 11/07/2005, Benign Core Biopsy on the left side. Maternal aunt had breast cancer. Risk Values: Shirin 5 year model risk: 1.9%. NCI Lifetime model risk: 8.0%. Prior Study Comparison: 07/31/2017 Bilateral Diagnostic Mammogram, [facility]. 04/21/2020 Bilateral Screening Mammogram, [facility]. 10/17/2022 Bilateral MG 3D screening mammo w/cad, [facility]. Tissue Density: The breasts are heterogeneously dense, which may obscure small masses. Findings: Analyzed By CAD. Architectural distortion right breast lateral aspect approximately 6.4 cm from the nipple. This is in the superior aspect on MLO view 6.0 cm from the nipple. Left breast: There is no suspicious group of microcalcifications or new suspicious mass. Overall Assessment: Incomplete: need additional imaging evaluation, BI-RAD 0 Management: Diagnostic Breast Ultrasound of the right breast. [facility] will attempt to contact patient to return for supplemental views and ultrasound if indicated. Patient should continue monthly self-breast exams. A clinical breast exam by your physician is recommended on an annual basis. This exam should not preclude additional follow-up of suspicious palpable abnormalities. Note on Shirin scores and lifetime risk: 1. A Shirin score greater than 3% is considered moderate risk. If this is the case, consider specialist referral to assess eligibility for a risk reducing agent. 2. If overall lifetime risk for the development of breast cancer is 20% or higher, the patient may qualify for future screening with alternating mammogram and breast MRI. Electronically signed and approved by: Nick Mcfarland DO
== END | disposition home or self-care (01) ==
LOC: RADMAMWWP 15:04
PROVIDERS: ATTEND Family Medicine
DX: Z12.31 Encounter for screening mammogram for malignant neoplasm of breast (principal); Z78.0 Asymptomatic menopausal state; Z80.3 Family history of malignant neoplasm of breast
CPT/HCPCS: 77063; 77067

== ENCOUNTER → 2023-10-29 | Outpatient (CLI) | payer OTHER ==
--- NOTE | 2023-10-29 11:37 | USB ---
Reason for Exam: Additional evaluation requested from abnormal screening. Patient History: Menarche at age 15. First Full-Term at age 26. Postmenopausal. Hormonal Contraceptives, starting at age 24 for 1 year. 11/07/2005, Benign Core Biopsy on the left side. Maternal aunt had breast cancer. Risk Values: Shirin 5 year model risk: 1.9%. NCI Lifetime model risk: 8.0%. Technique: Method: Targeted. Prior Study Comparison: 04/21/2020 Bilateral Screening Mammogram, [facility]. 10/17/2022 Bilateral MG 3D screening mammo w/cad, [facility]. 10/21/2023 Bilateral MG 3D screening mammo w/cad, [facility]. Findings: The lateral section of the breast of the right breast, the axilla of the right breast and the retroareolar of the right breast were scanned. Technique utilized:US breast workup limited RT Image; Ultrasound imaging of: Area of concern. Architectural distortion correlates with hypoechoic irregular shaped mass measuring 11 x 8 x 10 mm at 10:00 6 cm from the nipple. Overall Assessment: Highly suggestive of malignancy, BI-RAD 5 Management: Ultrasound Core Biopsy of the right breast. A clinical breast exam by your physician is recommended on an annual basis and results should be correlated with mammographic findings. This exam should not preclude additional follow-up of suspicious palpable abnormalities. Results were given to the patient verbally at the time of exam. Electronically signed and approved by: Nick Mcfarland DO
== END | disposition home or self-care (01) ==
LOC: RADUSWWP 10:55
PROVIDERS: ATTEND Family Medicine
DX: N63.11 Unspecified lump in the right breast, upper outer quadrant (principal); R92.8 Other abnormal and inconclusive findings on diagnostic imaging of breast; Z80.3 Family history of malignant neoplasm of breast; Z78.0 Asymptomatic menopausal state

== ENCOUNTER → 2023-11-07 | Day surgery (SDC) | payer OTHER ==
--- NOTE | 2023-11-07 21:38 | USB ---
Risk Values: Shirin 5 year model risk: 1.9%. NCI Lifetime model risk: 8.0%. Prior Study Comparison: 04/21/2020 Bilateral Screening Mammogram, [facility]. 10/17/2022 Bilateral MG 3D screening mammo w/cad, [facility]. 10/21/2023 Bilateral MG 3D screening mammo w/cad, [facility]. Pathology Description: Location: 10 o'clock. Marker Left Behind. Cores: 6 Skin Nicks: 1 Gauge: 13 The procedure of ultrasound guided core biopsy was explained to the patient. Benefits, alternatives, and risks were discussed. An informed consent was then obtained. A timeout was performed. The patient was placed in supine positioning for imaging and for the procedure. The overlying skin was prepped and draped in usual sterile fashion. Lidocaine was used as anesthetic into the skin and subcutaneous tissue up to area of concern in the right breast. A small skin caitlin was made with surgical scalpel. Under ultrasound guidance, a 12-gauge vacuum assisted biopsy gun device was used to obtain 6 core samples. A biopsy clip was left in lesion. Hydromark butterfly core marker was placed. The patient tolerated the procedure well without any immediate complication. The patient was kept in the radiology department for short stay after the procedure and then discharged home in stable condition. Postprocedure mammogram: The patient was transferred to mammography for physician ordered post procedure mammogram for clip placement verification. Biopsy clip is in the expected region. Impression: Successful ultrasound guided core biopsy of area of concern in the right breast, full pathology results to follow. Recommendations: 1. Recommendations are pending pathology results. Pathology Results: Results pending. Electronically signed and approved by: Norris Lebron D.O. Radiologis
== END | disposition home or self-care (01) ==
LOC: RADUSWWP 12:29
PROVIDERS: ATTEND Family Medicine
DX: R92.8 Other abnormal and inconclusive findings on diagnostic imaging of breast (principal)
CPT/HCPCS: 77065; 19083; A4648

== ENCOUNTER → 2023-11-09 | Outpatient (CLI) | payer OTHER ==
--- NOTE | 2023-11-12 15:20 | MR ---
EXAMINATION TYPE: MR lumbar spine wo/w con DATE OF EXAM: 11/09/2023 COMPARISON: None HISTORY: Low back pain into right buttocks x2 months CONTRAST: 6 mL intravenous Gadavist. TECHNIQUE: Multiplanar, multisequence images of the lumbar spine were acquired. FINDINGS: Cord terminates at the L1 level. L5-S1: No significant disc bulge or disc herniation. No spinal canal stenosis. No foraminal stenosi s. L4-L5: No significant disc bulge or disc herniation. No spinal canal stenosis. No foraminal stenosi s. L3-L4: Mild disc bulge has anterior thecal sac contact. No AP spinal canal stenosis is present. Some disc extension into foramen is evident with severe left foraminal stenosis. Correlate with left L4 ra dicular symptoms L2-L3: Fire left lateral disc bulge is present. No cord contact is evident. No nerve root contact is evident. Neural foramen appears patent. No spinal canal stenosis. L1-L2: No significant disc bulge or disc herniation. No spinal canal stenosis. No foraminal stenosi s. T12-L1: No significant disc bulge or disc herniation. No spinal canal stenosis. No foraminal stenos is. No abnormal enhancement. IMPRESSION: 1. Far left lateral disc bulging L3-4. No nerve root contact is evident 2. Mild disc bulging in the left foramen contributing to severe foraminal stenosis. Correlate with le ft L4 radicular symptoms.
== END | disposition home or self-care (01) ==
LOC: RADMRIMAIN 12:03
PROVIDERS: ATTEND Family Medicine
DX: M51.16 Intervertebral disc disorders with radiculopathy, lumbar region (principal); M48.061 Spinal stenosis, lumbar region without neurogenic claudication
CPT/HCPCS: 72158; A9585

== ENCOUNTER → 2024-03-02 | Outpatient (CLI) | payer OTHER ==
--- NOTE | 2024-03-02 15:20 | BD ---
EXAMINATION TYPE: Bone Density DATE OF EXAM: 03/02/2024 CLINICAL HISTORY: 63 years old Female. ICD-10 CODE: [id number] BREAST CANCER; Y63.3 RADIATION THERAPY Height: 63.25" Weight: 143.9lbs FRAX RISK QUESTIONS: Alcohol (3 or more units per day): No Family History (Parent hip fracture): No Glucocorticoids (More than 3mos): No (Ex: prednisone, prednisolone, methylprednisolone, dexamethasone, and hydrocortisone). History of Fracture in Adulthood: No Secondary Osteoporosis: 1. Type 1 Diabetes: No 2. Hyperthyroidism: No 3. Menopause before 45: No 4. Malnutrition: No 5. Chronic liver disease: No Rheumatoid Arthritis: No Current Tobacco Use: Yes RISK FACTORS HISTORY OF: Hip Fracture (Right/Left): No Spine Fracture: No History of Wrist Fracture: No Surgery to Spine/Hip(right/left)/Wrist (right/left): No MEDICATIONS: Thyroid Medications: No Osteoporosis Medications: No EXAM MEASUREMENTS: Bone mineral densitometry was performed using the [employer] System. Bone mineral density as measured about the Lumbar spine is: ----- L1-L4(G/cm2): 1.254 T Score Values are as follows: ----- L1: -1.0 ----- L2: 1.0 ----- L3: 1.8 ----- L4: 0.4 ----- L1-L4: 0.6 Z Score Values are as follows: ----- L1: 0.4 ----- L2: 2.5 ----- L3: 3.3 ----- L4: 1.8 ----- L1-L4: 2.1 Baseline @MPH Bone mineral density about the R hip (g/cm2): 0.823 Bone mineral density about the L hip (g/cm2): 0.838 T Score values are as follows: -----R Neck: -1.6 -----L Neck: -1.8 -----R Total: -1.5 -----L Total: -1.3 Z Score values are as follows: -----R Neck: -0.2 -----L Neck: -0.4 -----R Total: -0.4 -----L Total: -0.2 Baseline @MPH FRAX%s: The graph provided illustrates a 10.1% chance for a major osteoporotic fx and a 2.1% chance f or the hips probability for fx in 10 years time. IMPRESSION: Osteopenia (T Score between -2.5 and -1). There is slightly increased risk of fracture and the patient may be considered for treatment. Re-Screen 2-5 years. NOTE: T-SCORE=SD OF THE YOUNG ADULT MEAN.
--- NOTE | 2024-03-02 16:24 | CTL ---
EXAMINATION TYPE: CT Low Dose Lung DATE OF EXAM: 03/02/2024 1:18 PM CLINICAL INDICATION:Female, 63 years old with history of Z87.891 Personal history of tobacco use/maday juan dependence; current smoker 1/2 PPD x40 years , history of tobacco use. COMPARISON: None. TECHNIQUE: Multiple axial non-contrast scans were obtained from approximately the lung apices through the upper abdomen. Coronal and sagittal reformatted images were obtained. Low dose technique was uti lized. CT DLP: 52.7 mGycm, Automated exposure control for dose reduction was used. CT Contrast: Contrast used: None Oral contrast used: None FINDINGS: ======== Lack of intravenous contrast and low dose technique limits the evaluation of the vascular and soft ti ssue structures. LUNGS: No evidence of pulmonary fibrosis. No evidence of focal consolidation, pneumothorax or pleural effusion. Nodules: RUL: None. RML: None. RLL: 6 mm triangular pleural-based small nodule (series 4, image 163). CLAUDINE: None. LLL: None. AIRWAY: Patent and unremarkable. HEART: Size within normal limits. MEDIASTINUM: No gross evidence of adenopathy. VASCULATURE: No aortic aneurysm. MUSCULOSKELETAL: No acute osseous abnormalities SOFT TISSUES/LYMPH NODES: Unremarkable. LOWER NECK: No significant findings. UPPER ABDOMEN: No significant findings. IMPRESSION: 1. No clinically significant pulmonary nodules. CT LUNG RAD AND CT CHEST RECOMMENDATION: Lung-Rad 3 Probably Benign: 6 month follow-up LDCT. S Modifier (other clinically significant findings): Recommend smoking cessation (if current smoker), or continuation of smoking cessation (if prior smoke r). Annual screening for lung cancer with low-dose computed tomography is recommended in adults ages 55 to 77 years who have a 30 pack-year smoking history and currently smoke or have quit within the pa st 15 years. Screening should be discontinued once a person has not smoked for 15 years or develops a health problem that substantially limits life expectancy or the ability or willingness to have curat mamie lung surgery. Lung rads 2021 [email or web address]
== END | disposition home or self-care (01) ==
LOC: RADBDWWP 12:14
PROVIDERS: ATTEND Family Medicine
DX: Z12.2 Encounter for screening for malignant neoplasm of respiratory organs (principal); C50.919 Malignant neoplasm of unspecified site of unspecified female breast; M85.89 Other specified disorders of bone density and structure, multiple sites; Y63.3 Inadvertent exposure of patient to radiation during medical care; Z87.891 Personal history of nicotine dependence
CPT/HCPCS: 71271; 77080

== ENCOUNTER → 2024-07-10 | Outpatient (CLI) | payer OTHER ==
--- NOTE | 2024-07-10 16:32 | US ---
EXAMINATION TYPE: US axilla RT DATE OF EXAM: 07/10/2024 COMPARISON: NONE CLINICAL INDICATION: Female, 64 years old with history of CUTANEOUS ABSCESS, UNSPECIFIED; Invasive lo bular carcinoma with lumpectomy, axillary lymph node dissection, and whole breast radiation; swelling and pain since TECHNIQUE: Multiple grayscale and color Doppler ultrasound images of the right axilla in the area of concern were obtained. Additional imaging of the right breast near lumpectomy were obtained. FINDINGS/IMPRESSION: There is a hypoechoic nonvascular elongated lesion within the right axilla measu ring 0.6 x 1.1 x 0.4 cm. May represent residual fluid in the setting of prior surgical intervention w ith abscess not excluded. Consider ultrasound-guided tissue sampling. [facility], , 07/10/2024 4:30 PM
== END | disposition home or self-care (01) ==
LOC: RADUSWWP 15:22
PROVIDERS: ATTEND Family Medicine
DX: L02.91 Cutaneous abscess, unspecified (principal); C50.911 Malignant neoplasm of unspecified site of right female breast

== ENCOUNTER → 2024-07-30 | Day surgery (SDC) | payer OTHER ==
--- NOTE | 2024-08-10 11:44 | USB ---
Prior Study Comparison: 10/17/2022 Bilateral MG 3D screening mammo w/cad, [facility]. 10/21/2023 Bilateral MG 3D screening mammo w/cad, [facility]. 11/07/2023 Right MG diagnostic mammo RT wo CAD, [facility]. Pathology Description: Location: axilla. Marker Left Behind. Needle Type: Celero Cores: 3 Gauge: 12 The procedure of ultrasound guided core biopsy was explained to the patient. Benefits, alternatives, and risks were discussed. An informed consent was then obtained. The patient was placed in supine positioning for imaging and for the procedure. The overlying skin was prepped and draped in usual sterile fashion. Lidocaine buffered with bicarbonate was used as anesthetic into the skin and subcutaneous tissue up to area of concern in the right axilla. Under ultrasound guidance, a 12-gauge vacuum assisted biopsy gun device was used to obtain 3 core samples from right axillary lymph node. Following this, a biopsy clip was left in lesion. The patient tolerated the procedure well without any immediate complication. The patient was kept in the radiology department for short stay after the procedure and then discharged home in stable condition. Postprocedure mammogram: The patient was transferred to mammography for physician ordered post procedure mammogram for clip placement verification. Post procedure mammogram demonstrates the clip in appropriate placement. Impression: Successful, uncomplicated ultrasound guided core biopsy of area of concern in the right axilla, full pathology results to follow. [facility], , 07/30/2024 11:18 AM. Pathology Results: Result: Benign. RIGHT AXILLA, ULTRASOUND GUIDED CORE BIOPSY: Fibrous scar with histiocytic foreign body reaction (see note). Notes To confirm the diagnosis, immunostains are performed with appropriate controls on the tissue block. CD68 stains positive within histiocytes. CK7 staining is mostly negative for rare cystic area staining. E-Cadherin stains positive within favored background ductal/acinar structures. There is no diagnostic evidence of malignancy. Clinical correlation with imaging studies is suggested as deemed clinically appropriate. Overall Assessment: Benign Management: Diagnostic Breast Ultrasound of the right breast in 6 months. Electronically signed and approved by: Gregory Peterson M.D. Radiologis
== END ==
LOC: RADUSWWP 09:43
PROVIDERS: ATTEND Family Medicine
DX: C50.911 Malignant neoplasm of unspecified site of right female breast (principal); R22.2 Localized swelling, mass and lump, trunk
CPT/HCPCS: 88305; 88342; 88341; 19083; 38505; A4648

== ENCOUNTER → 2024-08-17 | Outpatient (CLI) | payer OTHER ==
--- NOTE | 2024-08-17 09:33 | US ---
EXAMINATION TYPE: US thyroid st tissue head/neck DATE OF EXAM: 08/17/2024 COMPARISON: NONE CLINICAL INDICATION: Female, 64 years old with history of E04.1 THYROID NODULE; Patient states nodule seen on other imaging; Patient denies any sings or symptoms; Breast cancer with possible ?mets to faviola ngs TECHNIQUE: Grayscale and color Doppler imaging of the thyroid gland. FINDINGS: GLAND SIZE: Right Lobe: 4.7 x 1.5 x cm Overall Parenchyma: homogeneous Left Lobe: 5.3 x 2.0 x 1.9 cm Overall Parenchyma: homogeneous Isthmus Thickness: 0.3 cm NODULES RIGHT: # of nodules measured on right: 1 1. 0.9 X 0.7 x 0.9 cm, lower medial, solid or almost completely solid, heterogeneous isoechoic TR 3 nodule, which is wider than tall, with ill-defined margins, with echogenic foci. Prior size: No prior LEFT: # of nodules measured on left: 1 1. 2.1 X 1.0 x 1.4 cm, lower lateral, mixed cystic and solid, but predominantly solid TR 4 hypoecho ic nodule, which is wider than tall, with lobulated or irregular margins, with echogenic foci. Prior size: No prior ISTHMUS: # of nodules measured in the isthmus: 0 Bilateral neck scanned, no evidence of lymphadenopathy. IMPRESSION: A dominant 2.1 cm TR4 nodule in the left lobe. FNA can be performed. A 9 mm TR3 nodule in the right f or which follow-up can be performed. 2017 ACR TI-RADS LEVEL: TR-RADS 4 - Moderately Suspicious: Follow if > 1 cm, FNA if > 1.5 cm *Highest TI-RADS level nodule reported [facility], , 08/17/2024 9:31 AM
== END | disposition home or self-care (01) ==
LOC: RADUSWWP 08:53
PROVIDERS: ATTEND Family Medicine
DX: E04.1 Nontoxic single thyroid nodule (principal)
CPT/HCPCS: 76536

== ENCOUNTER 2024-08-25 08:42 | Day surgery (SDC) | payer OTHER ==
[2024-08-25 10:47] VITALS: RESP 16; TEMP 97.9
[2024-08-25 10:48] VITALS: BP 121/70; PULSE 57
--- NOTE | 2024-08-25 12:26 | US ---
EXAMINATION TYPE: US FNA thyroid first lesion DATE OF EXAM: 08/25/2024 10:26 AM CLINICAL INDICATION:Female, 64 years old with history of R93.89 ABNORMAL FINDINGS ON DX IMAGING OF OT H BODY; TR 4, thyroid nodule. COMPARISON: Thyroid ultrasound August 17, 2024 ATTENDING: Dr. Nick Mcfarland PROCEDURE: Informed consent was obtained. The risks and benefits of the procedure were discussed with the patien t. The site was marked. Timeout procedure was performed Ultrasound imaging demonstrates lower pole solid and cystic left thyroid nodule near 2.0 cm long axis The patient was prepped, draped in the usual sterile fashion, and locally anesthetized with 1% lidoca ine. Five fine needle aspiration were then performed with a 25 gauge needle. Samples were sent to [facility] pathology department for further analysis. Patient tolerated the procedure without incident and wa s sent home in stable condition. IMPRESSION: Successful ultrasound guided fine needle aspiration of dominant left-sided nodule. [facility], , 08/25/2024 12:23 PM
== END 2024-08-25 11:00 | disposition home or self-care (01) ==
LOC: RADPROMAIN 08:42
PROVIDERS: ATTEND Family Medicine
DX: E04.1 Nontoxic single thyroid nodule (principal); Z85.3 Personal history of malignant neoplasm of breast
CPT/HCPCS: 10005; 88173; 88305

== ENCOUNTER → 2024-09-10 | Outpatient (CLI) | payer OTHER ==
--- NOTE | 2024-09-10 17:30 | PE ---
EXAMINATION TYPE: PET CT fusion skull to thigh DATE OF EXAM: 09/10/2024 CLINICAL INDICATION:Female, 64 years old with history of C50.919 breast ca; TECHNIQUE: Following the intravenous administration of 9.9 mCi of F-18 FDG, whole body images are p erformed from the skull vertex to the midthigh. Images are reviewed on the computer in the coronal, axial, and sagittal planes. Reconstructed rotating images are created on independent workstation and reviewed on the computer. A non-contrast CT is performed in conjunction with the PET scan. Glucose level 103 mg/dL CT DLP: 241.25 mGycm, Automated exposure control for dose reduction was used. COMPARISON: CT 03/02/2024, 07/26/2023, PET/CT None, MRI: None, US: 08/17/2024, 08/25/2024, 07/10/2024, , 10/29/2023 FINDINGS: Mediastinal SUV mean is 2.0. Hepatic parenchyma SUV mean is 2.6. SKULL BASE AND NECK: Hypodense 1.4 cm left thyroid lobe nodule with minimal FDG activity with a maximum SUV of 2.4. CHEST, MEDIASTINUM, AND HILAR REGION: Posttreatment changes in the right breast with few coarse calcifications in skin thickening. There is mild FDG activity with a maximum SUV in this region measuring 2.2. Stranding changes identified with in the right axilla. There is corresponding mild FDG activity with a maximum SUV of 3.2. ABDOMEN AND PELVIS: No suspicious radiotracer activity. MUSCULOSKELETAL STRUCTURES: No suspicious radiotracer activity. OTHER CT: Mild mucosal thickening with air-fluid level within the right maxillary sinus. Mild atheros clerotic calcification of the aorta and its branches. IMPRESSION: 1. Post treatment changes of the right breast and right axilla with low-level FDG activity demonstra rubén. Residual disease is not entirely excluded. No other suspicious radiotracer activity identified. 2. Left thyroid lobe hypodense nodule with minimal FDG activity. Correlate with recent biopsy result sLanre [facility], , 09/10/2024 5:28 PM
== END | disposition home or self-care (01) ==
LOC: RADPETMAIN 06:37
PROVIDERS: ATTEND Family Medicine
DX: C50.911 Malignant neoplasm of unspecified site of right female breast (principal); E04.1 Nontoxic single thyroid nodule; C79.9 Secondary malignant neoplasm of unspecified site; Z85.3 Personal history of malignant neoplasm of breast; R91.8 Other nonspecific abnormal finding of lung field
CPT/HCPCS: 78815; A9552

== ENCOUNTER → 2024-10-13 | Outpatient (CLI) | payer OTHER ==
--- NOTE | 2024-10-15 10:09 | BMR ---
EXAM DATE: 10/13/2024 EXAM DESCRIPTION: MRI-Breast Bilat (W/WO Contrast) INDICATION: History of right breast cancer status post breast conserving therapy in 2023. COMPARISON: Comparison was made to prior relevant imaging available in PACS TECHNIQUE: Multiplanar multisequence breast MRI was performed prior to and after administration of 6 cc of Gadobutrol intravenously. Post processing was performed utilizing a [employer] workstation. The exam was performed at [facility] and submitted to review by [facility] radiologist. FINDINGS: There is minimal, symmetric background parenchymal enhancement in breasts that are composed of heterogeneous fibroglandular tissue. RIGHT BREAST: Review of the dynamic contrast enhanced series shows postsurgical and post radiation changes. No rapidly enhancing masses, suspicious enhancement patterns or other abnormalities. The T2 weighted series show no abnormality. LEFT BREAST: Review of the dynamic contrast enhanced series shows signal void from biopsy clip with no residual enhancement in the slightly outer central anterior depth of the breast compatible with history of benign biopsy (series 601, image 52 and series 503 image 48). No rapidly enhancing masses, suspicious enhancement pattern or other abnormalities in the breast. The T2 weighted series show no abnormality. LYMPH NODES: No axillary or internal mammary lymphadenopathy. Postsurgical changes are present in the right axilla. IMPRESSION: Right breast: BI-RADS Category 2-benign. Post treatment changes in the breast. No MRI evidence of malignancy. Recommendation: MRI screening in 1 year Left breast: BI-RADS Category 1-negative. No MR evidence of malignancy. Recommendation: MRI screening in 1 year. OVERALL ASSESSMENT- BI-RADS 2 ANNUAL SCREENING BREAST MRI IN ADDITION TO MAMMOGRAPHY IS RECOMMENDED IN PATIENTS WITH LIFETIME RISK OF BREAST CANCER >20% MTDD
== END | disposition home or self-care (01) ==
LOC: RADMRIMAIN 21:00
PROVIDERS: ATTEND Internal Medicine
DX: C50.919 Malignant neoplasm of unspecified site of unspecified female breast (principal)
CPT/HCPCS: 77049; A9585

== ENCOUNTER → 2025-01-26 | Outpatient (CLI) | payer OTHER ==
--- NOTE | 2025-01-26 14:11 | CT ---
EXAMINATION TYPE: CT chest wo con DATE OF EXAM: 01/26/2025 COMPARISON: 03/02/2024 CLINICAL INDICATION: Female, 64 years old with history of R91.1 SOLITARY PULMONARY NODULE; [facility], Lung nodules, hx breast ca TECHNIQUE: CT scan of the thorax is performed without IV contrast. CT DLP: [address] CTDI: mGy Automated exposure control for dose reduction was used. FINDINGS: There are a few scattered micronodules which are not clearly seen on the prior study. There is a stab le juxtapleural plaque-like nodule of the fissure on the right. There are no suspicious lung masses o r nodules. There is no airspace consolidation or abnormal interstitial density. There is no pleural effusion or pneumothorax. Great vessels and chest are normal with no mediastinal, hilar or axillary adenopathy. Limited scanning through the upper abdomen reveals no gross adenopathy. Note is made of a 1.1 cm nodule in the left lobe of thyroid gland and correlation with thyroid ultras ound is recommended. There are no focal osseous lesions IMPRESSION: 1. No suspicious lung mass or nodule.. There are few new scattered micronodules, all less than 2 mm. 2. No acute cardiopulmonary disease. 3. 1.1 cm nodule in the left lobe of thyroid gland. Thyroid ultrasound is recommended for further [facility], , 01/26/2025 2:08 PM
== END | disposition home or self-care (01) ==
LOC: RADCTMAIN 13:41
PROVIDERS: ATTEND Family Medicine
DX: R91.1 Solitary pulmonary nodule (principal); E04.1 Nontoxic single thyroid nodule
CPT/HCPCS: 71250

== ENCOUNTER → 2025-03-04 | Outpatient (CLI) | payer OTHER ==
--- NOTE | 2025-03-04 10:40 | XR ---
EXAMINATION TYPE: XR shoulder limited LT DATE OF EXAM: 03/04/2025 10:24 AM COMPARISON: None CLINICAL INDICATION: Female, 64 years old with history of W19.XXXA UNSPECIFIED FALL M25.512 Left mehranu malachi damon; [facility], pain TECHNIQUE: 2 views FINDINGS: Mild degenerative changes and joint with some capsular hypertrophy and mild joint space narrowing. Corona bacromial space is preserved. No acute fracture, subluxation, dislocation seen. No tendinous or bursa l calcifications. IMPRESSION: Mild AC joint. No acute osseous abnormality seen. [facility], Workstation: [email or web address], 03/04/2025 10:38 AM
== END | disposition home or self-care (01) ==
LOC: RADXRMAIN 10:05
PROVIDERS: ATTEND Family Medicine
DX: M25.512 Pain in left shoulder (principal); W19.XXXA Unspecified fall, initial encounter